=== PATIENT | female | born 1990 | race Caucasian/White ===

== ENCOUNTER 2020-12-17 16:00 | Emergency (ER) | payer OTHER ==
--- OUTSIDE RECORDS SUMMARY | 2020-12-17 16:04 | XMS REPORT | Continuity of Care Document ---
:1990 Author Organization [facility] t Address [address] [place] [address] Care Team Providers Name Role Phone Janet LUDIN Attending Clinician 2, Lab Attending Clinician Unavailable Lab, Fam Pob I Attending Clinician Unavailable Problems This patient has no known problems. Allergies, Adverse Reactions, Alerts This patient has no known allergies or adverse reactions. Medications This patient has no known medications. Procedures This patient has no known procedures. Encounters Start End Encounter Admission Attending Care Care Encounter Source Date/Time Date/Time Type Type Clinicians Facility Department ID 2020-11-30 2020-11-30 Refill [facility], [facility] [id number] 00:00:00 00:00:00 [facility] [employer] [id number] [place] [id number] Professio [phone] [facility] [address] 2020-11-14 2020-11-14 Patient Janet [facility] [id number] 00:00:00 00:00:00 Secure Msg [facility] [employer] [id number] [place] [id number] Professio [phone] [facility] [address] 2020-11-12 2020-11-12 Larriman Helper 2, [facility] [id number] 13:12:08 13:27:08 Visit [place] [id number] [place] [id number] Professio [phone] [place] [address] Building 2020-11-09 2020-11-09 Letter Janet, [facility] [id number] 00:00:00 00:00:00 [facility] [id number] [place] [id number] Professio [phone] [place] [address] 2020-11-06 2020-11-06 [facility], [facility] [id number] 14:58:36 15:55:10 Visit [facility] [id number] [place] [id number] Professio [phone] [place] [address] Results This patient has no known results.
--- NOTE | 2020-12-17 17:36 | RAD REPORT ---
EXAM DESCRIPTION: RAD - Chest Pa And Lat (2 Views) - 12/17/2020 5:29 pm CLINICAL HISTORY: COUGH COMPARISON: None TECHNIQUE: Frontal and lateral views of the chest were obtained. FINDINGS: The lungs are clear. Heart size is normal and central vasculature is within normal limit s. No pleural effusion or pneumothorax seen. No acute bony finding noted. No aortic abnormality. IMPRESSION: No acute cardiopulmonary process.
--- NOTE | 2020-12-18 17:35 | EDPHYS ---
Physician Documentation [facility] Name: Sailaja Atkins Age: 30 yrs Sex: Female : 1990 Arrival Date: 12/17/2020 Time: 16:03 Bed 13 Private MD: ED Physician Isidoro Real Historical: - Allergies: 12/17 17:05 Ibuprofen; kg - Home Meds: 17:05 Lexapro 20 mg Oral tab 1 tab once daily [Active]; kg - PMHx: 17:05 Tonsillitis; kg - Immunization history:: Adult Immunizations not immunized, Client reports having NOT received the Covid vaccine. - Social history:: Smoking status: Patient reports the use of cigarette tobacco products, smokes one-half pack cigarettes per day. Vital Signs: 17:04 BP 120 / 93; Pulse 87; Resp 20; Temp 98.1(O); Pulse Ox 98% ; Weight 67.59 kg; Height 5 kg ft. 2 in. (157.48 cm); Pain 8/10; 17:04 Body Mass Index 27.25 (67.59 kg, 157.48 cm) kg MDM: 19:36 ED course: Patient left prior to evaluation. [facility] 12/17 17:09 Order name: Flu; Complete Time: 19:22 kg 12/17 17:09 Order name: XRAY Chest Pa And Lat (2 Views); Complete Time: 19:22 kg 12/17 17:09 Order name: Strep; Complete Time: 19:22 kg 12/17 17:41 Order name: Throat Culture EDMS 12/17 18:38 Order name: SARS-COV-2 RT PCR; Complete Time: 19:22 EDMS Administered Medications: No medications were administered Disposition: 12/18 06:02 Co-signature as Attending Physician, Isidoro Real MD. rn Disposition Summary: 12/17/20 19:24 Eloped Disposition: before being seen by provider kg Reason: unknown kg Signatures: Dispatcher [employer] EDMS Jude Zapien PA PA Isidoro Morse MD MD rn Graham, Kristen, RN RN kg Corrections: (The following items were deleted from the chart) 12/17 17:38 17:10 CORONAVIRUS+[id number].[email or web address] ordered. EDMS EDMS
--- NOTE | 2020-12-18 17:35 | ER ---
Nurse's Notes [facility] Name: Sailaja Atkins Age: 30 yrs Sex: Female : 1990 Arrival Date: 12/17/2020 Time: 16:03 Bed 13 Private MD: Diagnosis: Presentation: 12/17 17:04 Chief complaint: Patient states: Sore throat, Carter ear ache, cough x 3 days. Coronavirus kg screen: Client denies travel out of the [place] in the last 14 days. At this time, unable to obtain information related to travel outside the [place] At this time, the client does not indicate any symptoms associated with coronavirus-19. Ebola Screen: Patient negative for fever greater than or equal to 101.5 degrees Fahrenheit, and additional compatible Ebola Virus Disease symptoms Patient denies exposure to infectious person. Patient denies travel to an Ebola-affected area in the 21 days before illness onset. Initial Sepsis Screen: Does the patient meet any 2 criteria? No. Patient's initial sepsis screen is negative. Does the patient have a suspected source of infection? No. Patient's initial sepsis screen is negative. Risk Assessment: Do you want to hurt yourself or someone else? Patient reports no desire to harm self or others. Onset of symptoms was December 14, 2020. 17:04 Method Of Arrival: Ambulatory kg 17:04 Acuity: NGOC 4 kg Triage Assessment: 17:05 General: Appears in no apparent distress. Behavior is calm, cooperative, appropriate kg for age, quiet. Pain: Complains of pain in neck Pain currently is 7 out of 10 on a pain scale. at worst was 8 out of 10 on a pain scale. level that patient reports is acceptable is 3 out of 10 on a pain scale. Quality of pain is described as itching, scratchy. Respiratory: No deficits noted. Breath sounds are diminished bilaterally. Historical: - Allergies: 17:05 Ibuprofen; kg - Home Meds: 17:05 Lexapro 20 mg Oral tab 1 tab once daily [Active]; kg - PMHx: 17:05 Tonsillitis; kg - Immunization history:: Adult Immunizations not immunized, Client reports having NOT received the Covid vaccine. - Social history:: Smoking status: Patient reports the use of cigarette tobacco products, smokes one-half pack cigarettes per day. Vital Signs: 17:04 BP 120 / 93; Pulse 87; Resp 20; Temp 98.1(O); Pulse Ox 98% ; Weight 67.59 kg; Height 5 kg ft. 2 in. (157.48 cm); Pain 8/10; 17:04 Body Mass Index 27.25 (67.59 kg, 157.48 cm) kg ED Course: 16:03 Patient arrived in ED. mr 17:05 Triage completed. kg 17:28 XRAY Chest Pa And Lat (2 Views) In Process Unspecified. EDMS 19:10 Jude Zapien PA is PHCP. henrique 19:10 Isidoro Real MD is Attending Physician. henrique Administered Medications: No medications were administered Outcome: 19:24 Patient left the ED. kg Signatures: Dispatcher [employer] EDMS Jude Zapien PA PA jmm Rivera, Mary mr KochArabella, RN RN kg
[2020-12-19 13:16] VITALS: BP 120/93; TEMP 98.1; O2SAT 98
== END 2020-12-17 19:24 | disposition left against medical advice (07) ==
LOC: ER 16:00
DX: Z53.21 Procedure and treatment not carried out due to patient leaving prior to being seen by health care provider (principal); Z20.822 Contact with and (suspected) exposure to COVID-19
CPT/HCPCS: 87070; 87081; 87804 ×2; 71046; U0003

== ENCOUNTER 2023-12-28 06:59 | Emergency (ER) | payer OTHER ==
--- OUTSIDE RECORDS SUMMARY | 2023-12-28 07:05 | XMS REPORT | Continuity of Care Document ---
Author Name Unknown Address [address] [facility] [address] [place] [address] [facility] thconnect Address [address] [facility] [address] [place] [address] Care Team Providers Care Tool Technician Name Role Phone PCP, PATIENT DOES NOT HAVE A Primary Care Physic maria m Unavailable CHRIS PERRIN Attending Clinician Unavailable VASILE BETANCOURT Attending Clinician Unavailable KAITLIN MCKEON Attending Clinician Unavailable KAITLIN ORTIZ Attending Clinician Unavailab MARIYA Leon Attending Clinician Unavail able FARZAD BAER Attending Clinician Unavailable IRINA CUELLAR Attending Clinician Unavailable BARBARA WINTERS Attending Clinician Unava ilable Kaitlin Buenrostro Attending Clinician + [phone] Pcp, Patient Does Not Have A Attending Clinician Doctor Unassigned, [place] Attending Clinician U Sav Finnegan MD Attending Clinician [phone] Ngozi Torres PA-C Attending Clinician [phone] NADIA AMAYA Attending Clinician Unavailable NADIA AMAYA Attending Clinician Unavailable SUSI MORENO Attending Clinician Unavailab Susi Fox DO Attending Clinician [phone] YESENIA GRUBBS Attending Clinician Unavailable Donnell Hale MD Attending Clinician [phone] Denzel Danielle MD Attending Clinician [phone] NGOZI TORRES Attending Clinician Unavailable Lukas Romero MD Attending Clinician Unavailabl Ramiro Rodriguez DO Attending Clinician [phone] EDWIN ARREOLA Attending Clinician Unavailable Edwin Arreola DO Attending Clinician [phone] MONICA LACY Attending Clinician Unavail able Brandon Palacios MD Attending Clinician [phone] BRANDON PALACIOS Attending Clinician Unavail able BRANDON PALACIOS Attending Clinician Unavail able TUTU GE Attending Clinician Rosalie Andres LVN Attending Clinician JAY Kaur Attending Clinician Unavail able ROSLYN BENITO Attending Clinician Unavailable Lab, [facility] Attending Clinician Unavailable AUBREY FARRAR Attending Clinician Unavailabl e Hugh [facility], [place] Attending Clinician Unavaila ble [facility] Attending Clinician Unavailable DENZEL DANIELLE Attending Clinician Unavailable DENZEL DANIELLE Attending Clinician Unavailable Lab, Ang - Db Attending Clinician Unavailable Edgar Garcia MD Attending Clinician [phone] Fred Munguia MD Attending Clinician [phone] Roslyn Benito MD Attending Clinician [phone] MICHAEL PARKER Attending Clinician Unavailable Michael Parker MD Attending Clinician [phone] Irina Blackman Attending Clinician [phone] FERNANDO MAHER Attending Clinician Unavailable EDGAR GARCIA Attending Clinician Unavailab Harry Duffy Attending Clinician +[phone] RAMIRO BALDERAS Attending Clinician Unavailab IRINA Irvin Attending Clinician Unavailabl e 2, [facility] Attending Clinician Unavailable Lab, Adc Fam Pob I Attending Clinician Unavailab riya Rubin RN, Isis Salamanca Attending Clinician Unav RANGEL Lei Attending Clinician Unavailable Anton Sibley MD Attending Clinician + [phone] Yusuf Vincent MD Attending Clinician [phone] EDWIN ARREOLA Admitting Clinician Unavailable YESENIA GRUBBS Admitting Clinician Unavailable HARRY SMITH Admitting Clinician Unavailable Payers Payer Name Policy Type Policy Number Effective Date Expirati on Date Source [facility] [id number]:00:00 [employer] 94 ON 9 [id number] 2023 00:00:00 [facility] [place] [facility] [id number] 00:00:00 FORMERLY [facility] [id number] 2021 00:00:00 MEDICAID [place] [id number] 2021 00:00:00 Problems Condition Name Condition Details Condition Category Status Onset Date Resolution Date Last Treatment Date Treating Clinician Comments Source Lymphatic disorder Lymphatic disorder Disease Active 5-13 00:00: 00 [facility] Chronic obstructiv e lung disease Chronic obstructiv e lung disease Disease Active 3-03 00:00: 00 [facility] Lower back injury Lower back injury Disease Active 3-03 00:00: 00 [facility] 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 3-03 00:00: 00 [facility] Traumatic injury Traumatic injury Disease Active 3-03 00:00: 00 [facility] Cyst of left ovary Cyst of left ovary Disease Active -16 00:00: 00 [facility] Kidney damage Kidney damage Disease Active 3-16 00:00: 00 [facility] Mixed anxiety and depressive disorder Mixed anxiety and depressive disorder Disease Active 3-16 00:00: 00 [facility] Psoriatic arthritis Psoriatic arthritis Disease Active 3-16 00:00: 00 [facility] 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 Disease Active 2-05 00:00: 00 [facility] Non Hodgkin's lymphoma, stage IIA Non Hodgkin's lymphoma, stage IIA Disease Active 1-15 00:00: 00 [facility] 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 Disease Active 02-05 00:00: 00 [facility] Bipolar 1 disorder, manic, mild Bipolar 1 disorder, manic, mild Disease Active 06-06 00:00: 00 [facility] Chronic back pain greater than 3 months duration Chronic back pain greater than 3 months duration Disease Active 11-04 00:00: 00 [facility] Scoliosis deformity of spine Scoliosis deformity of spine Disease Active 08-05 00:00: 00 [facility] Allergies, Adverse Reactions, Alerts Allergy Name Allergy Type Status Severity Reaction(s) Onset Date Inactive Date Treating Clinician Comments Source Ibuprofe n Propensi ty to adverse reaction s Active [facility] 01-30 00:00: 00 [facility] IBUPROFE N DRUG INGREDI Active [facility] 01-30 00:00: 00 [facility] Ibuprofe n Propensi ty to adverse reaction s Active Swelling 11-16 00:00: 00 Rosemary Jean - Externa l Family History Family Member Diagnosis Comments Start Date Stop Date Sourc e Natural [facility] Maternal grandfather Colon Cancer [facility] Maternal grandfather Heart [facility] Maternal grandfather Skin Cancer [facility] Maternal grandmother Breast Cancer [facility] Maternal grandmother Diabetes [facility] Maternal grandmother Hypertension [facility] Maternal grandmother Thyroid Cancer [facility] Natural [facility] Natural mother COPD (chronic obstructive pulmonary disease) [facility] Natural [facility] Natural mother Kidney disease [facility] Natural mother Skin Cancer [facility] Paternal grandmother Skin Cancer [facility] Paternal grandmother CHF (congestive heart failure) [facility] Social History Social Habit Start Date Stop Date Quantity Comments Source History of tobacco use 2013-11-16 00:00:00 Cigarette Smoker Rosemary Jean - External Sexual orientation K paola Jean - External History SDOH Alcohol Frequency [facility] History SDOH Alcohol Std Drinks [facility] History SDOH Alcohol Binge [facility] Cigarettes smoked current (pack per day) - Reported 2023-11-17 00:00:00 2023-11-17 00:00:00 Rosemary Jean - External Cigarette pack-years 2023-11-17 00:00:00 2023-11-17 00:00:00 Rosemary Jean - External Alcoholic beverage intake 2023-11-17 00:00:00 2023-11-17 00:00:00 Ex-drinker (finding) Rosemary Jean - External History of Social function 2023-11-17 00:00:00 2023-11-17 00:00:00 Rosemary Jean - External Alcohol intake 2023-06-16 00:00:00 2023-06-16 00:00:00 Current drinker of alcohol (finding) [facility] Exposure to SARS-CoV-2 (event) 2022-05-03 00:00:00 2022-05-13 09:07:00 Not sure [facility] Tobacco use and exposure 2021-12-27 00:00:00 2021-12-27 00:00:00 Smokeless tobacco non-user [facility] Alcohol Comment 2020-08-07 00:00:00 2020-08-07 00:00:00 occassional wine (not weekly). [facility] Sex assigned at 1990 00:00:00 1990 00:00:00 Rosemary Looney Smoking Status Start Date Stop Date Source Tobacco smoking consumption unknown [facility] Ex-smoker 2023-11-17 00:00:00 2023-11-17 00:00:00 Rosemary Looney Smokes tobacco daily 2021-12-27 00:00:00 [facility] Medications Ordered Medication Name Filled Medication Name Start Date Stop Date Current Medication? Ordering Clinician Indication Dosage Frequency Signature (SIG) Comments Components Source Fluticasone -Salmeterol (Advair Diskus) 250-50 MCG/ACT inhalation AEROSOL POWDER, BREATH ACTIVATED 715 00:00: 00 Yes [id number] 1{puff} Q.5D Inhale 1 puff into the lungs 2 times daily. Rosemary salamanca Albuterol HFA 108 (90 Base) MCG/ACT IN AERS 12-06 00:00: 00 Yes [id number] 2{puff} Q.25D Inhale 2 puffs into the lungs every 6 hours as needed for wheezing. Rosemary salamanca Methotrexat e, PF, (Rasuvo) 7.5 MG/0.15ML subcutaneou s Solution Auto-inject or 11-17 00:00: 00 12-18 04:59 :00 Yes 7.5mg Q1W Inject 7.5 mg into the skin once a week. Rosemary salamanca Methotrexat e Sodium (RHEUMATREX ) 10 MG oral tablet 11-16 00:00: 00 12-17 04:59 :00 Yes [id number] 10mg Q1W Take 1 tablet (10 mg total) by mouth once a week. Rosemary salamanca Folic Acid 1 MG oral tablet 11-16 00:00: 00 12-17 04:59 :00 Yes [id number] 1mg QD Take 1 tablet (1 mg total) by mouth daily. Rosemary salamanca haloperidoL (HALDOL) tablet 0.5 mg 06-10 20:44: 00 06-10 21:18 :00 No .5mg 0.5 mg, Oral, ONCE, 1 dose, On Thu06/10/23 at 1445, TO [facility] haloperidoL 5 mg tablet 06-10 00:00: 00 Yes [id number] 5mg Take 1 tablet by mouth in the morning and 1 tablet in the evening. [facility] NaCl 0.9% (NS) bolus infusion 1,000 mL 05-28 17:45: 00 05-28 17:57 :00 No 1000mL at 999 mL/hr, 1,000 mL, IV Infusion, ONCE, 1 dose, On Lala 05/28/23 at 1145, TO [facility] buPROPion HCL, smoking deter, 150 mg Tb12 2021-05 00:00: 00 Yes [id number] 150mg Take 150 mg by mouth 2 (two) times daily. [facility] albuterol 90 mcg/actuati on inhaler 2021-05 00:00: 00 Yes [id number] 2{puff} Inhale 2 Puffs every 4 (four) hours as needed for Wheezing or Shortness of Breath. [facility] benzonatate 100 mg capsule 2021-05 00:00: 00 Yes [id number] 100mg Take 1 capsule by mouth 3 (three) times daily as needed for Cough. [facility] methylPREDN ISolone 4 mg tablets 2021-05 00:00: 00 Yes [id number] Take by mouth SEE-INSTRU CTIONS. follow package directions [facility] lidocaine 5 % (700 mg/patch) patch 2021-05 00:00: 00 04-19 05:59 :00 No [id number] 1{patch } Apply 1 Patch to area(s) once now for 1 dose. [facility] OLANZapine 15 mg tablet 2021-05 00:00: 00 Yes [facility] ARIPiprazol e 5 mg tablet 2021-05 00:00: 00 Yes [facility] haloperidoL 10 mg tablet 2021-05 00:00: 00 06-10 00:00 :00 No [facility] Butalbital- Acetaminoph en-Caff 50-300-40 mg per capsule 01-02 08:32: 56 Yes butalbital -acetamino phen-caffe ine 50 mg-300 mg-40 mg capsule Take 1 capsule every 6-8 hours by oral route as needed. [facility] BUPROPION HCL, SMOKING DETER, 150 mg Tb12 12-02 00:00: 00 04-23 00:00 :00 No [id number] TAKE 150 MG BY MOUTH DAILY. ZYBAN 150MG BY MOUTH FOR 3 DAYS AND THEN TWICE. START 1 WEEK PRIOR TO SMOKING CESSATION AND CONTINUE FOR 7-12 WEEKS. [facility] Butalbital- Acetaminoph en-Caff 50-300-40 mg per capsule 11-22 00:00: 00 01-02 00:00 :00 No butalbital -acetamino phen-caffe ine 50 mg-300 mg-40 mg capsule Take 1 capsule every 6-8 hours by oral route as needed. [facility] escitalopra m oxalate 20 mg tablet 11-09 22:50: 10 Yes escitalopr am 20 mg tablet TAKE 1 TABLET BY MOUTH EVERY DAY [facility] predniSONE 20 mg tablet 11-09 22:50: 10 Yes prednisone 20 mg tablet TAKE 2 TABLETS BY MOUTH DAILY X 5 DAYS [facility] triamcinolo ne acetonide 0.1 % cream 11-09 22:50: 10 Yes triamcinol one acetonide 0.1 % topical cream APPLY 3 TIMES DAILY UNTIL DIRECTED TO STOP [facility] risankizuma b-rzaa (SKYRIZI) 150 mg/mL PnIj 11-01 00:00: 00 Yes [id number] 150mg inject 1 Pen under the skin every 12 (twelve) weeks. [facility] calcipotrie ne-betameth asone 0.005-0.064 % ointment 10-22 00:00: 00 Yes [id number] Apply to area(s) daily. [facility] clindamycin 1 % gel 10-22 00:00: 00 Yes [id number] Apply to affected area(s) 2 (two) times daily as needed for Rash (groin). [facility] risankizuma b-rzaa (SKYRIZI) 150 mg/mL PnIj 10-22 00:00: 00 Yes [id number] 150mg inject 1 Pen under the skin every 4 (four) weeks. [facility] gabapentin 100 mg capsule 10-22 00:00: 00 Yes [id number] 300mg Take 3 capsules by mouth at bedtime. [facility] hydrOXYzine 50 mg tablet 10-22 00:00: 00 Yes [id number] 50mg Take 1 tablet by mouth 3 (three) times daily as needed for Anxiety. [facility] clindamycin 1 % gel 10-22 00:00: 00 Yes [id number] Apply to affected area(s) 2 (two) times daily as needed for Rash (groin). [facility] albuterol 90 mcg/actuati on inhaler 10-22 00:00: 00 04-23 00:00 :00 No [id number] 2{puff} Inhale 2 Puffs every 4 (four) hours as needed for Wheezing or Shortness of Breath. [facility] buPROPion HCL, smoking deter, (ZYBAN) 150 mg Tb12 10-22 00:00: 00 12-02 00:00 :00 No [id number] 150mg Take 150 mg by mouth daily. Zyban 150mg Po for 3 days and then bid. Start 1 week prior to smoking cessation and continue for 7-12 weeks. [facility] fluticasone propion-loan meteroL (ADVAIR DISKUS) 250-50 mcg/dose inhalation disk 09-25 00:00: 00 Yes [id number] 1{puff} Inhale 1 Puff every 12 (twelve) hours. [facility] risankizuma b-rzaa (SKYRIZI) 150 mg/mL PnIj 09-05 00:00: 00 11-01 00:00 :00 No [id number] 150mg inject 1 Pen under the skin every 12 (twelve) weeks. [facility] gabapentin 100 mg capsule 09-05 00:00: 00 10-20 00:00 :00 No [id number] 300mg Take 3 capsules by mouth at bedtime. [facility] clindamycin 1 % gel 09-02 00:00: 00 10-20 00:00 :00 No [id number] Apply to affected area(s) 2 (two) times daily as needed for Rash (groin). [facility] calcipotrie ne-betameth asone 0.005-0.064 % ointment 4-11 00:00: 00 10-20 00:00 :00 No [id number] Apply to area(s) daily. [facility] clobetasoL 0.05 % ointment 08-12 00:00: 00 Yes [id number] Apply to area(s) 2 (two) times daily. [facility] hydrOXYzine 50 mg tablet 08-12 00:00: 00 09-25 00:00 :00 No [id number] 50mg Take 1 tablet by mouth 3 (three) times daily as needed for Anxiety. [facility] buPROPion HCL, smoking deter, (ZYBAN) 150 mg Tb12 08-12 00:00: 00 09-25 00:00 :00 No [id number] 150mg Take 150 mg by mouth daily. Zyban 150mg Po for 3 days and then bid. Start 1 week prior to smoking cessation and continue for 7-12 weeks. [facility] amoxicillin -clavulanat e (AUGMENTIN) 875-125 mg per tablet 08-12 00:00: 00 08-23 04:59 :00 No [id number] 1{tbl} Take 1 tablet by mouth 2 (two) times daily for 10 days. [facility] albuterol 90 mcg/actuati on inhaler 07-25 00:00: 00 09-25 00:00 :00 No [id number] 2{puff} Inhale 2 Puffs every 4 (four) hours as needed for Wheezing or Shortness of Breath. [facility] fluticasone propion-loan meteroL (ADVAIR DISKUS) 250-50 mcg/dose inhalation disk 07-25 00:00: 00 09-25 00:00 :00 No [id number] 1{puff} Inhale 1 Puff every 12 (twelve) hours. [facility] clobetasoL 0.05 % ointment 2020-05 2 00:00: 00 08-10 00:00 :00 No [id number] Apply to area(s) 2 (two) times daily for 90 days. [facility] fluticasone propion-loan meteroL (ADVAIR DISKUS) 250-50 mcg/dose inhalation disk 2020-05 00:00: 00 07-25 00:00 :00 No [id number] 1{puff} Inhale 1 Puff every 12 (twelve) hours for 90 days. [facility] hydrOXYzine 50 mg tablet 2020-05 00:00: 00 08-10 00:00 :00 No [id number] 50mg Take 1 tablet by mouth 3 (three) times daily as needed for Anxiety. [facility] buPROPion HCL, smoking deter, (ZYBAN) 150 mg [facility] 2020-05 00:00: 00 08-10 00:00 :00 No [id number] 150mg Take 150 mg by mouth daily. Zyban 150mg Po for 3 days and then bid. Start 1 week prior to smoking cessation and continue for 7-12 weeks. [facility] buPROPion HCL, smoking deter, (ZYBAN) 150 mg [facility] 2020-05 00:00: 00 04-12 00:00 :00 No [id number] 150mg Take 150 mg by mouth daily. Zyban 150mg Po for 3 days and then bid. Start 1 week prior to smoking cessation and continue for 7-12 weeks. [facility] furosemide 20 mg tablet 2020-05 00:00: 00 Yes [id number] 20mg Take 1 tablet by mouth every morning. [facility] methylPREDN ISolone 4 mg tablets 2020-05 00:00: 00 04-18 00:00 :00 No [id number] Take by mouth SEE-INSTRU CTIONS. follow package directions [facility] clindamycin 300 mg capsule 2020-05 00:00: 00 08-12 00:00 :00 No [id number] 300mg Take 1 capsule by mouth 4 (four) times daily. [facility] hydrOXYzine 50 mg tablet 2020-05 00:00: 00 04-12 00:00 :00 No [id number] 50mg Take 1 tablet by mouth 3 (three) times daily as needed for Anxiety. [facility] buPROPion HCL, smoking deter, (ZYBAN) 150 mg Tb12 02-08 00:00: 00 03-04 00:00 :00 No [id number] 150mg Take 150 mg by mouth daily for 45 days. Zyban 150mg Po for 3 days and then bid. Start 1 week prior to smoking cessation and continue for 7-12 weeks. [facility] hydrOXYzine 50 mg tablet 02-08 00:00: 00 03-04 00:00 :00 No [id number] 50mg Take 1 tablet by mouth 3 (three) times daily as needed for Anxiety for up to 30 days. [facility] methylPREDN ISolone 4 mg tablets 02-08 00:00: 00 02-15 04:59 :00 No [id number] Take by mouth SEE-INSTRU CTIONS for 6 days. follow package directions [facility] varenicline (CHANTIX STARTING MONTH BOX) 0.5 mg (11)- 1 mg (42) tablet 12-24 00:00: 00 Yes [id number] Take one 0.5mg tab by mouth once daily for 3 days, then one 0.5mg tab twice daily for 4 days, then one 1mg tab twice daily. [facility] triamcinolo ne acetonide 0.1 % ointment 12-24 00:00: 04-12 00:00 :00 No [id number] Apply to area(s) 2 (two) times daily. [facility] escitalopra m oxalate 20 mg tablet 12-24 00:00: 00 02-08 00:00 :00 No [id number] 20mg Take 1 tablet by mouth daily. [facility] benzonatate 100 mg capsule 12-22 00:00: 00 04-18 00:00 :00 No [id number] 100mg Take 1 capsule by mouth 3 (three) times daily as needed for Cough. [facility] albuterol 90 mcg/actuati on inhaler 12-22 00:00: 00 07-25 00:00 :00 No [id number] 2{puff} Inhale 2 Puffs every 4 (four) hours as needed for Wheezing or Shortness of Breath. [facility] cephALEXin 500 mg capsule 12-22 00:00: 00 12-30 04:59 :00 No [id number] 500mg Take 1 capsule by mouth 4 (four) times daily for 7 days. [facility] predniSONE 20 mg tablet 12-22 00:00: 00 12-27 04:59 :00 No [id number] 20mg Take 1 tablet by mouth 2 (two) times daily for 4 days. [facility] triamcinolo ne acetonide 0.1 % ointment 11-06 00:00: 00 11-30 00:00 :00 No [id number] Apply to area(s) 2 (two) times daily. [facility] varenicline (CHANTIX STARTING MONTH BOX) 0.5 mg (11)- 1 mg (42) tablet 11-06 00:00: 00 11-30 00:00 :00 No [id number] Take one 0.5mg tab by mouth once daily for 3 days, then one 0.5mg tab twice daily for 4 days, then one 1mg tab twice daily. [facility] escitalopra m oxalate 20 mg tablet 11-06 00:00: 00 11-30 00:00 :00 No [id number] 20mg Take 1 tablet by mouth daily. [facility] calcipotrie ne-betameth asone 0.005-0.064 % ointment 09-17 00:00: 00 11-06 00:00 :00 No [id number] Apply to area(s) daily. [facility] escitalopra m oxalate 20 mg tablet 08-14 00:00: 00 11-06 00:00 :00 No [id number] 20mg Take 1 tablet by mouth daily. [facility] escitalopra m oxalate 10 mg tablet 17 00:00: 00 08-14 00:00 :00 No [id number] 10mg Take 1 tablet by mouth 2 (two) times daily. [facility] calcipotrie ne-betameth asone 0.005-0.064 % ointment 08-07 00:00: 00 09-14 00:00 :00 No [id number] Apply to area(s) daily. [facility] ondansetron 4 mg tablet 01-30 00:00: 00 08-07 00:00 :00 No [id number] 4mg Take 1 tablet by mouth every 8 (eight) hours as needed for Nausea and Vomiting (N/V). [facility] triamcinolo ne 0.5 % ointment 01-30 00:00: 00 08-07 00:00 :00 No [id number] Apply to area(s) 2 (two) times daily. [facility] adalimumab (JACKELYN LEYVA, ROSENDO PSOR-UV-ADO L HS) 80 mg/0.8 mL-40 mg/0.4 mL PnKt 7-10 00:00: 00 09-05 00:00 :00 No [facility] Immunizations Ordered Immunization Name Filled Immunization Name Date Status Comments Source TDAP 2020-08-07 00:00:00 Completed [facility] TDAP 2020-08-07 00:00:00 Completed [facility] TDAP 2020-08-07 00:00:00 Completed [facility] TDAP 2020-08-07 00:00:00 Completed [facility] TDAP 2020-08-07 00:00:00 Completed [facility] TDAP 2020-08-07 00:00:00 Completed [facility] TDAP 2020-08-07 00:00:00 Completed [facility] TDAP 2020-08-07 00:00:00 Completed [facility] TDAP 2020-08-07 00:00:00 Completed [facility] TDAP 2020-08-07 00:00:00 Completed [facility] TDAP 2020-08-07 00:00:00 Completed [facility] TDAP 2020-08-07 00:00:00 Completed [facility] TDAP 2020-08-07 00:00:00 Completed [facility] TDAP Unknown Completed [facility] TDAP Unknown Completed [facility] TDAP Unknown Completed [facility] TDAP Unknown Completed [facility] TDAP Unknown Completed [facility] TDAP Unknown Completed [facility] TDAP Unknown Completed [facility] TDAP Unknown Completed [facility] TDAP Unknown Completed [facility] TDAP Unknown Completed [facility] TDAP Unknown Completed [facility] TDAP Unknown Completed [facility] TDAP Unknown Completed [facility] TDAP Unknown Completed [facility] TDAP Unknown Completed [facility] TDAP Unknown Completed [facility] TDAP Unknown Completed [facility] TDAP Unknown Completed [facility] TDAP Unknown Completed [facility] TDAP Unknown Completed [facility] TDAP Unknown Completed [facility] TDAP Unknown Completed [facility] TDAP Unknown Completed [facility] TDAP Unknown Completed [facility] TDAP Unknown Completed [facility] TDAP Unknown Completed [facility] TDAP Unknown Completed [facility] TDAP Unknown Completed [facility] TDAP Unknown Completed [facility] TDAP Unknown Completed [facility] TDAP Unknown Completed [facility] TDAP Unknown [facility]pleted [facility] TDAP Unknown [facility]pleted [facility] TDAP Unknown Completed [facility] TDAP Unknown Completed [facility] TDAP Unknown [facility]pleted [facility] TDAP Unknown Completed [facility] TDAP Unknown Completed [facility] Vital Signs Vital Name Observation Time Observation Value Comments S ource Systolic blood pressure 2023-06-10 20:06:00 137 mm[Hg] [facility] Diastolic blood pressure 2023-06-10 20:06:00 80 mm[Hg] [facility] Heart rate 2023-06-10 20:06:00 107 /min [facility] Body temperature 2023-06-10 20:06:00 36.78 [facility] Respiratory rate 2023-06-10 20:06:00 18 /min [facility] Body height 2023-06-10 20:06:00 157.5 cm [facility] Body weight 2023-06-10 20:06:00 83.915 kg [facility] BMI 2023-06-10 20:06:00 33[facility]84 [facility] O[facility] saturation in Arterial blood by Pulse oximetry 2023-06-10 20:06:00 100 /min [facility] Heart rate 2023-05-28 17:58:00 88 /min [facility] Respiratory rate 2023-05-28 17:58:00 16 /min [facility] Oxygen saturation in Arterial blood by Pulse oximetry 2023-05-28 17:58:00 99 /min [facility] Systolic blood pressure 2023-05-28 16:41:00 138 mm[Hg] [facility] Diastolic blood pressure 2023-05-28 16:41:00 82 mm[Hg] [facility] Body temperature 2023-05-28 16:41:00 36.61 [facility] Body height 2023-05-28 16:41:00 157.5 cm [facility] Body weight 2023-05-28 16:41:00 83.915 [facility] BMI 2023-05-28 16:41:00 33.84 kg/m2 [facility] Systolic blood pressure 2022-05-13 15:38:00 116 mm[Hg] [facility] Diastolic blood pressure 2022-05-13 15:38:00 78 mm[Hg] [facility] Heart rate 2022-05-13 15:38:00 86 /min [facility] Body height 2022-05-13 15:38:00 157.5 cm [facility] Body weight 2022-05-13 15:38:00 79.833 [facility] BMI 2022-05-13 15:38:00 32.19 kg/m2 [facility] Oxygen saturation in Arterial blood by Pulse oximetry 2022-05-13 15:38:00 100 /min [facility] Systolic blood pressure 2022-04-18 21:49:00 138 mm[Hg] [facility] Diastolic blood pressure 2022-04-18 21:49:00 75 mm[Hg] [facility] Heart rate 2022-04-18 21:49:00 99 /min [facility] Body temperature 2022-04-18 21:49:00 37.44 [facility] Respiratory rate 2022-04-18 21:49:00 18 /min [facility] Body height 2022-04-18 21:49:00 157.5 cm [facility] Body weight 2022-04-18 21:49:00 68.04 kg [facility] BMI 2022-04-18 21:49:00 27.44 kg/m2 [facility] Oxygen saturation in Arterial blood by Pulse oximetry 2022-04-18 21:49:00 98 /min [facility] Systolic blood pressure 2021-12-27 20:58:00 136 mm[Hg] [facility] Diastolic blood pressure 2021-12-27 20:58:00 82 mm[Hg] [facility] Heart rate 2021-12-27 20:58:00 94 /min [facility] 2021-12-27 20:58:00 157.5 cm [facility] Body weight 2021-12-27 20:58:00 74.844 kg [facility] BMI 2021-12-27 20:58:00 30.18 kg/m2 [facility] saturation in Arterial blood by Pulse oximetry 2021-12-27 20:58:00 98 /min [facility] Systolic blood pressure 2022-05-13 15:38:00 116 mm[Hg] [facility] Diastolic blood pressure 2022-05-13 15:38:00 78 mm[Hg] [place] [facility] Heart rate 2022-05-13 15:38:00 86 /min [facility] Body height 2022-05-13 15:38:00 157.5 cm [facility] Body weight 2022-05-13 15:38:00 79.833 kg [facility] BMI 2022-05-13 15:38:00 32.19 kg/m2 [facility] Oxygen saturation in Arterial blood by Pulse oximetry 2022-05-13 15:38:00 100 /min [place] [facility] Body temperature 2022-04-18 21:49:00 37.44 [facility] Respiratory rate 2022-04-18 21:49:00 18 /min [facility] Procedures Procedure Date / Time Performed Performing Clinician Source ASSIGNMENT OF BENEFITS 2023-06-10 21:13:27 Docto r Unassigned, [place] [facility] ASSIGNMENT OF BENEFITS 2023-05-28 18:11:05 Docto r Unassigned, [place] [facility] CONSENT/REFUSAL FOR DIAGNOSIS AND TREATMENT 2023-05-28 16:36:50 Doctor Unassigned, [place] [facility] RAPID INFLUENZA A/B 2022-04-18 22:26:00 Eloisa Arreola [facility] COVID-19 (ID NOW RAPID TESTING) 2022-04-18 22:26:00 Edwin Arreola [facility] XR CHEST 1 VW 2022-04-18 22:20:12 [facility] CONSENT/REFUSAL FOR DIAGNOSIS AND TREATMENT 2022-04-18 21:44:26 Doctor Unassigned, [place] [facility] REFERRAL- REQUEST/RESPONSE 2022-03-19 05:01:00 Doctor Unassigned, [place] [facility] AUTHORIZATION FOR RELEASE OF PHI 2022-02-07 05:01:00 Doctor Unassigned, [place] [facility] Encounters Start Date/Time End Date/Time Encounter Type Admission Type Attending Clinicians Care Facility Care Department Encounter ID Source 2021-03-25 12:09:29 Emergency [facility] [id number] [facility] 2023-12-31 13:30:00 2023-12-31 13:30:00 Outpatient PERRINKATIELE ROSEMARY NICHOL[facility] [id number] [facility] 2023-12-29 10:15:00 2023-12-29 10:15:00 Outpatient BETANCOURTKI CAGETI [facility]ICHOL[facility] [id number] [facility] 2023-12-21 08:00:00 2023-12-21 08:00:00 Outpatient KAITLIN NAVA [facility] [id number] [facility] 2023-12-21 00:00:00 2023-12-21 00:00:00 Outpatient BETANCOURT, VASILE NICHOLSON [id number] [facility] 2023-12-16 00:00:00 2023-12-16 00:00:00 Outpatient BETANCOURT, VASILE NICHOLSON [id number] [facility] 2023-12-15 00:00:00 2023-12-15 00:00:00 Outpatient BETANCOURT, VASILETI NICHOLSON [id number] [facility] 2023-12-15 00:00:00 2023-12-15 00:00:00 Outpatient BETANCOURT, VASILE NICHOLSON [id number] [facility] 2023-12-15 00:00:00 2023-12-15 00:00:00 Outpatient EBTANCOURT, VASILE NICHOLSON [id number] [facility] 2023-12-11 00:00:00 2023-12-11 00:00:00 Outpatient BETANCOURT, VASILETI NICHOLSON [id number] [facility] 2023-12-09 15:00:00 2023-12-09 15:00:00 Outpatient KAITLIN ORTIZ [id number] [facility] 2023-12-08 10:45:00 2023-12-08 10:45:00 Outpatient MARIYA ALBERTO [id number] [facility] 2023-12-07 11:00:00 2023-12-07 11:00:00 Outpatient FARZAD BAERSEY [id number] [facility] 2023-12-06 00:00:00 2023-12-06 00:00:00 Outpatient BETANCOURT, VASILE ROSEMARY NICHOLSON [id number] [facility] 2023-11-21 00:00:00 2023-11-21 00:00:00 Outpatient BETANCOURT, VASILENicolette NICHOLSON [id number] [facility] 2023-11-19 00:00:00 2023-11-19 00:00:00 Outpatient BETANCOURT, VASILENicolette NICHOLSON [id number] [facility] 2023-11-19 00:00:00 2023-11-19 00:00:00 Outpatient BETANCOURT, VASILETI NICHOLSON [id number] [facility] 2023-11-17 14:45:00 2023-11-17 14:45:00 Outpatient BETANCOURT, VASILETI NICHOLSON [id number] [facility] 2023-11-17 00:00:00 2023-11-17 00:00:00 Outpatient BETANCOURT, VASILENicolette NICHOLSON [id number] [facility] 2023-11-17 00:00:00 2023-11-17 00:00:00 Outpatient BETANCOURT, VASILENicolette NICHOLSON [id number] [facility] 2023-11-17 00:00:00 2023-11-17 00:00:00 Outpatient BETANCOURT, VASILETI NICHOLSON [id number] [facility] 2023-11-17 00:00:00 2023-11-17 00:00:00 Outpatient IRINA CUELLAR [id number] [facility] 2023-11-06 13:45:00 2023-11-06 13:45:00 Outpatient BARBARA WINTERS [id number] [facility] 2023-10-15 00:00:00 2023-10-21 08:57:01 Patient Secure [facility] [place], [facility] 1.2.840.114 350.1.13.10 4.2.7.2.686 [id number] [facility] 2023-08-31 10:20:00 2023-08-31 10:20:00 Outpatient R [facility] [id number] [facility] 2023-07-03 00:00:00 2023-07-03 00:00:00 Refill Kaitlin Mckeon [facility] 1.84.114 350.1.13.10 4.2.7.2.686 [id number] [facility] 2023-07-03 00:00:00 2023-07-03 00:00:00 Refill Pcp, Patient Does Not Have A [facility] 1.84.114 350.1.13.10 4.2.7.2.686 [id number] [facility] 2023-06-29 15:00:00 2023-06-29 15:00:00 Outpatient R [facility] [id number] [facility] 2023-06-18 00:00:00 2023-06-18 00:00:00 Patient Secure Msg Doctor Unassigned, [place] [facility] 1.84.114 350.1.13.10 4.2.7.2.686 [id number] [facility] 2023-06-17 14:13:30 2023-06-17 14:13:30 Outpatient [facility] [id number] Sher Yeh 2023-06-16 08:00:00 2023-06-16 08:00:00 Outpatient R KAITLIN MCKEON [facility] [id number] [facility] 2023-06-15 00:00:00 2023-06-15 00:00:00 [facility]ill [facility] 1.840.114 350.1.13.10 4.2.7.2.686 [id number] [facility] 2023-06-14 00:00:00 2023-06-14 00:00:00 [facility] 1..114 350.1.13.10 4.2.7.2.686 [id number] [facility] 2023-06-14 00:00:00 2023-06-14 00:00:00 Ngozi Andrew [facility] 1.114 350.1.13.10 4.2.7.2.686 [id number] [facility] 2023-06-10 14:07:00 2023-06-10 15:26:00 Emergency NADIA MILES TIMOTHY [facility] ERT [id number] [facility] 2023-06-10 14:07:00 2023-06-10 15:26:00 Emergency Nadia Amaya [facility] 1..114 350.1.13.10 4.2.7.2.686 [id number] [facility] 2023-05-28 10:42:00 2023-05-28 12:26:00 Emergency SUSI GONSALEZ [facility] ERT [id number] [facility] 2023-05-28 10:42:00 2023-05-28 12:26:00 Emergency Susi Moreno [facility] 1..114 350.1.13.10 4.2.7.2.686 [id number] [facility] 2022-08-19 00:00:00 2022-08-19 00:00:00 Patient Secure Msg Doctor Unassigned, [place] [facility] 1..114 350.1.13.10 4.2.7.2.686 [id number] [facility] 2022-06-27 10:00:00 2022-06-27 10:00:00 Outpatient R [facility] [id number] [facility] 2022-06-13 08:00:00 2022-06-13 08:00:00 Outpatient R YESENIA GRUBBS [facility] [id number] [facility] 2022-05-23 10:30:00 2022-05-23 10:30:00 Outpatient R LINDAKAITLIN [facility] [id number] [facility] 2022-05-14 09:00:00 2022-05-14 09:00:00 Outpatient R [facility] [id number] [facility] 2022-05-13 09:30:00 2022-05-13 10:08:57 [id number] 2022-05-13 09:30:00 2022-05-13 10:08:57 [facility] 1.84.114 350.1.13.10 4.2.7.2.686 [id number] [facility] 2022-05-01 00:00:00 2022-05-01 00:00:00 Telephone Donnell Hale [facility] 1..114 350.1.13.10 4.2.7.2.686 [id number] [facility] 2022-04-29 11:30:00 2022-04-29 11:30:00 Outpatient R LINDAJAYLEENKAITLIN [facility] [id number] [facility] 2022-04-29 00:00:00 2022-04-29 00:00:00 Patient Secure MsDenzel Gonzalez [facility] 1..114 350.1.13.10 4.2.7.2.686 [id number] [facility] 2022-04-25 13:30:00 2022-04-25 13:30:00 Outpatient YESENIA SHARPE [facility] [id number] [facility] 2022-04-25 00:00:00 2022-04-25 00:00:00 Telephone Denzel Danielle [facility] 1.114 350.1.13.10 4.2.7.2.686 [id number] [facility] 2022-04-24 08:00:00 2022-04-24 08:00:00 Outpatient NGOZI ANTHONY [facility] [id number] [facility] 2022-04-23 00:00:00 2022-04-23 00:00:00 RefNgozi Valente [facility] 1.114 350.1.13.10 4.2.7.2.686 [id number] [facility] 2022-04-23 00:00:00 2022-04-23 00:00:00 Refill Doctor Unassigned, [place] [facility] 1.114 350.1.13.10 4.2.7.2.686 [id number] [facility] 2022-04-23 00:00:00 2022-04-23 00:00:00 Refill Lukas Romero [facility] 1.114 350.1.13.10 4.2.7.2.686 [id number] [facility] 2022-04-23 00:00:00 2022-04-23 00:00:00 Telephone Denzel Danielle [facility] 1.114 350.1.13.10 4.2.7.2.686 [id number] [facility] 2022-04-23 00:00:00 2022-04-23 00:00:00 Lukas Crawford [facility] 1.840.114 350.1.13.10 4.2.7.2.686 [id number] [facility] 2022-04-23 00:00:00 2022-04-23 00:00:00 Patient Secure Msg Doctor Unassigned, [place] [facility] 1..840.114 350.1.13.10 4.2.7.2.686 [id number] [facility] 2022-04-22 13:40:00 2022-04-22 13:40:00 Outpatient R YESENIA GRUBBS [facility] [id number] [facility] 2022-04-21 11:00:00 2022-04-21 11:00:00 Outpatient R [facility] [id number] [facility] 2022-04-21 00:00:00 2022-04-21 00:00:00 Patient Secure Msg Ramiro Balderas [facility] 1..840.114 350.1.13.10 4.2.7.2.686 [id number] [facility] 2022-04-18 15:49:00 2022-04-18 18:23:00 Emergency X EDWIN ARREOLA [facility] E[facility] [id number] [facility] 2022-04-18 15:49:00 2022-04-18 18:23:00 Emergency Edwin Arreola [facility] 1..840.114 350.1.13.10 4.2.7.2.686 [id number] [facility] 2022-04-01 09:45:40 2022-04-01 09:45:40 Outpatient SFA [id number] Sher Yeh 2022-03-26 14:35:27 2022-03-26 14:35:27 Outpatient [facility] [id number] Sher Yeh 2022-03-20 10:12:36 2022-03-20 10:12:36 Outpatient [facility] [id number] Sher Yeh 2022-03-19 00:00:00 2022-03-19 00:00:00 Orders Only Doctor Unassigned, [place] [facility] 1..840.114 350.1.13.10 4.2.7.2.686 [id number] [facility] 2022-02-10 08:30:00 2022-02-10 08:30:00 Outpatient KAITLIN NAVA [facility] [id number] [facility] 2022-02-07 00:00:00 2022-02-07 00:00:00 Orders Only Doctor Unassigned, [place] [facility] 1..840.114 350.1.13.10 4.2.7.2.686 [id number] [facility] 2022-01-28 09:23:51 2022-01-28 23:59:00 Outpatient YESENIA SHARPE [facility] [id number] [facility] 2022-01-28 09:23:51 2022-01-28 23:59:00 Outpatient YESENIA SHARPE [facility] [id number] [facility] 2022-01-28 09:00:00 2022-01-28 23:59:00 Hospital Encounter Yesenia Grubbs [facility] 1..840.114 350.1.13.10 4.2.7.2.686 [id number] [facility] 2022-01-20 00:00:00 2022-01-20 00:00:00 Outpatient YESENIA SHARPE [facility] [id number] [facility] 2022-01-14 00:00:00 2022-01-14 00:00:00 Outpatient YESENIA SHARPE [facility] [id number] [facility] 2022-01-13 10:30:00 2022-01-13 10:30:00 Outpatient Kristen MCKEON KAITLIN [facility] [id number] [facility] 2022-01-10 11:30:00 2022-01-10 11:30:00 Outpatient JAYLEEN NAVATHIA [facility] [id number] [facility] 2022-01-09 13:30:00 2022-01-09 13:30:00 Outpatient JAYLEEN NAVATHIA [facility] [id number] [facility] 2022-01-02 08:45:00 2022-01-02 08:45:00 Outpatient NGOZI ANTHONY [facility] [id number] [facility] 2021-12-30 10:30:00 2021-12-30 10:30:00 Outpatient MONICA TENORIO [facility] [id number] [facility] 2021-12-27 15:40:00 2021-12-27 16:44:52 Office Visit Brandon Palacios [facility] 1.2.840.114 350.1.13.10 4.2.7.2.686 [id number] [facility] 2021-12-27 15:40:00 2021-12-27 16:44:52 Outpatient BRANDON SAGASTUME HOWARD [facility] [id number] [facility] 2021-12-27 15:40:00 2021-12-27 15:40:00 Outpatient BRANDON SAGASTUME HOWARD [facility] [id number] [facility] 2021-12-16 13:45:00 2021-12-16 13:45:00 Outpatient NGOZI ANTHONY [facility] [id number] [facility] 2021-12-09 00:00:00 2021-12-09 00:00:00 Outpatient TUTU CABRERA [facility] [id number] [facility] 2021-12-05 08:15:00 2021-12-05 08:15:00 Outpatient R NGOZI TORRES [facility] [id number] [facility] 2021-12-05 00:00:00 2021-12-05 00:00:00 RefNgozi Valente [facility] 1.84.114 350.1.13.10 4.2.7.2.686 [id number] [facility] 2021-12-03 11:30:00 2021-12-03 11:30:00 Outpatient R MONICA LACY [facility] [id number] [facility] 2021-12-02 11:00:00 2021-12-02 11:00:00 Outpatient R [facility] [id number] [facility] 2021-12-02 00:00:00 2021-12-02 00:00:00 Patient Secure Msg Rosalie Roy [facility] 1.840.114 350.1.13.10 4.2.7.2.686 [id number] [facility] 2021-11-30 00:00:00 2021-11-30 00:00:00 Sav Phan [facility] 1.84.114 350.1.13.10 4.2.7.2.686 [id number] [facility] 2021-11-30 00:00:00 2021-11-30 00:00:00 Patient Secure Msg Doctor Unassigned, [place] [facility] 1..114 350.1.13.10 4.2.7.2.686 [id number] [facility] 2021-11-26 00:00:00 2021-11-26 00:00:00 Patient Secure Msg Kaitlin Mckeon [facility] 1.114 350.1.13.10 4.2.7.2.686 [id number] [facility] 2021-11-11 00:00:00 2021-11-11 00:00:00 Patient Secure Msg Rosalie Roy [facility] 1.114 350.1.13.10 4.2.7.2.686 [id number] [facility] 2021-11-11 00:00:00 2021-11-11 00:00:00 Patient Secure Msg Kaitlin Mckeon [facility] 1.114 350.1.13.10 4.2.7.2.686 [id number] [facility] 2021-11-05 00:00:00 2021-11-05 00:00:00 Patient Secure Msg Jayleen Mckeonthia [facility] 1.114 350.1.13.10 4.2.7.2.686 [id number] [facility] 2021-10-29 08:00:00 2021-10-29 08:00:00 Outpatient JAY VALDIVIA [facility] [id number] [facility] 2021-10-28 00:00:00 2021-10-28 00:00:00 Refill Ngozi Torres [facility] 1.114 350.1.13.10 4.2.7.2.686 [id number] [facility] 2021-10-28 00:00:00 2021-10-28 00:00:00 RefSav Ortiz [facility] 1.114 350.1.13.10 4.2.7.2.686 [id number] [facility] 2021-10-20 00:00:00 2021-10-20 00:00:00 RefNgozi Valente [facility] 1.114 350.1.13.10 4.2.7.2.686 [id number] [facility] 2021-10-20 00:00:00 2021-10-20 00:00:00 [facility] 1.114 350.1.13.10 4.2.7.2.686 [id number] [facility] 2021-10-20 00:00:00 2021-10-20 00:00:00 RefLukas Lemon [facility] 1.114 350.1.13.10 4.2.7.2.686 [id number] [facility] 2021-10-18 00:00:00 2021-10-18 00:00:00 Outpatient ROSLYN VINES [facility] [id number] [facility] 2021-10-15 11:00:00 2021-10-15 11:00:00 Outpatient ROSLYN VINES [facility] [id number] [facility] 2021-10-15 11:00:00 2021-10-15 11:00:00 Outpatient Kristen BENITO [facility] [id number] [facility] 2021-10-11 00:00:00 2021-10-11 00:00:00 Orders Only Doctor Unassigned, [place] [facility] 1.114 350.1.13.10 4.2.7.2.686 [id number] [facility] 2021-10-08 09:10:48 2021-10-08 23:59:00 Hospital Encounter Ngozi Torres [facility] 1.2.840.114 350.1.13.10 4.2.7.2.686 [id number] [facility] 2021-10-08 09:10:18 2021-10-08 23:59:00 Hospital Encounter Ngozi Torres [facility] 1.2.840.114 350.1.13.10 4.2.7.2.686 [id number] [facility] 2021-10-08 10:45:00 2021-10-08 11:00:00 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, [facility] Ngozi Torres [facility] 1.2.840.114 350.1.13.10 4.2.7.2.686 [id number] [facility] 2021-10-08 09:40:00 2021-10-08 09:40:00 Outpatient R AUBREY FARRAR [facility] [id number] [facility] 2021-10-08 09:07:31 2021-10-08 09:09:00 Hospital Encounter Ngozi Torres [facility] 1.2.840.114 350.1.13.10 4.2.7.2.686 [id number] [facility] 2021-10-08 09:07:31 2021-10-08 09:07:31 Outpatient R MARCO NGOZI [facility] [id number] [facility] 2021-10-08 00:00:00 2021-10-08 00:00:00 Patient Secure Ngozi Benedict [facility] 1.2.840.114 350.1.13.10 4.2.7.2.686 [id number] [facility] 2021-10-08 00:00:00 2021-10-08 00:00:00 Patient Secure Ngozi Osorio [facility] 1.2840.114 350.1.13.10 4.2.7.2.686 [id number] [facility] 2021-10-08 00:00:00 2021-10-08 00:00:00 Patient Secure Ngozi Osorio [facility] 1.2840.114 350.1.13.10 4.2.7.2.686 [id number] [facility] 2021-10-02 00:00:00 2021-10-02 00:00:00 Orders Only Doctor Unassigned, [place] [facility] 1.2840.114 350.1.13.10 4.2.7.2.686 [id number] [facility] 2021-09-27 00:00:00 2021-09-27 00:00:00 Telephone [facility] 1.2840.114 350.1.13.10 4.2.7.2.686 [id number] [facility] 2021-09-25 00:00:00 2021-09-25 00:00:[facility] AC?[facility] 1.2840.114 350.1.13.10 4.2.7.2.686 [id number] 044 [id number] [facility] 2021-09-25 00:00:00 2021-09-25 00:00:00 [facility] 1.2840.114 350.1.13.10 4.2.7.2.686 [id number] 044 [id number] [facility] 2021-09-25 00:00:00 2021-09-25 00:00:00 Lukas Crawford [facility] 1.2.840.114 350.1.13.10 4.2.7.2.686 [id number] 027 [id number] [facility] 2021-09-23 00:00:00 2021-09-23 00:00:00 Patient Secure Msg Doctor Unassigned, [place] [facility] 1.2.840.114 350.1.13.10 4.2.7.2.686 [id number] 044 [id number] [facility] 2021-09-18 00:00:00 2021-09-18 00:00:00 Patient Secure Msg Doctor Unassigned, [place] [facility] 1.2.840.114 350.1.13.10 4.2.7.2.686 [id number] 044 [id number] [facility] 2021-09-09 00:00:00 2021-09-09 00:00:00 Telephone LTAC, located within [facility] ([facility]) 1.2.840.114 350.1.13.10 4.2.7.2.686 [id number] 016 [id number] [facility] 2021-09-09 00:00:00 2021-09-09 00:00:00 Telephone LTAC, located within [facility] ([facility]) 1.2.840.114 350.1.13.10 4.2.7.2.686 [id number] [id number] [facility] 2021-09-09 00:00:00 2021-09-09 00:00:00 Patient Secure Msg Doctor Unassigned, [place] [facility] 1.2.840.114 350.1.13.10 4.2.7.2.686 [id number] [id number] [facility] 2021-09-06 00:00:00 2021-09-06 00:00:00 Patient Secure Msg Doctor Unassigned, [place] [facility] ABHILASH JIMÉNEZ?[facility] 1.114 350.1.13.10 4.2.7.2.686 [id number] 044 [id number] [facility] 2021-09-05 10:15:00 2021-09-05 11:05:53 Office Visit Ngozi Torres [facility] 1.114 350.1.13.10 4.2.7.2.686 [id number] 086 [id number] [facility] 2021-09-05 10:15:00 2021-09-05 11:05:53 Outpatient NGOZI ANTHONY [facility] [id number] [facility] 2021-09-05 10:15:00 2021-09-05 10:15:00 Outpatient NGOZI ANTHONY [facility] [id number] [facility] 2021-09-05 10:15:00 2021-09-05 10:15:00 Outpatient NGOZI ANTHONY [facility] [id number] [facility] 2021-09-03 00:00:00 2021-09-03 00:00:[facility] 1.114 350.1.13.10 4.2.7.2.686 [id number] 027 [id number] [facility] 2021-09-03 00:00:00 2021-09-03 00:00:00 Patient Secure Msg Nick [facility] 1..114 350.1.13.10 4.2.7.2.686 [id number] 027 [id number] [facility] 2021-09-03 00:00:00 2021-09-03 00:00:00 [facility] 1..114 350.1.13.10 4.2.7.2.686 [id number] 027 [id number] [facility] 2021-09-02 14:30:00 2021-09-02 14:30:00 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 [facility] Denzel Danielle [facility] 1.114 350.1.13.10 4.2.7.2.686 [id number] [facility] 2021-09-02 14:00:00 2021-09-02 14:13:44 Outpatient DENZEL LABOY BRENT [facility] [id number] [facility] 2021-09-02 14:00:00 2021-09-02 14:13:44 Office Visit Lukas Romero Brent C [facility] 1.114 350.1.13.10 4.2.7.2.686 [id number] 027 [id number] [facility] 2021-09-02 14:00:00 2021-09-02 14:13:44 Outpatient DENZEL LABOY BRENT [facility] [id number] [facility] 2021-09-02 14:00:00 2021-09-02 14:13:44 Office Visit Lukas Romero Brent C [facility] 1.114 350.1.13.10 4.2.7.2.686 [id number] [facility] 2021-08-30 00:00:00 2021-08-30 00:00:00 Patient Secure Msg Linda [facility] 1..114 350.1.13.10 4.2.7.2.686 [id number] 044 [id number] [facility] 2021-08-23 00:00:00 2021-08-23 00:00:00 Telephone Linda [facility] 1..114 350.1.13.10 4.2.7.2.686 [id number] 044 [id number] [facility] 2021-08-22 00:00:00 2021-08-22 00:00:00 Patient Secure Msg Doctor Unassigned, [place] [facility] 1..840.114 350.1.13.10 4.2.7.2.686 [id number] 019 [id number] [facility] 2021-08-15 14:00:00 2021-08-15 14:00:00 Outpatient Kristen KAITLIN MCKEON [facility] [id number] [facility] 2021-08-15 14:00:00 2021-08-15 14:00:00 Outpatient KAITLIN NAVA [facility] [id number] [facility] 2021-08-13 00:00:00 2021-08-13 00:00:00 Patient Secure [facility] 1..840.114 350.1.13.10 4.2.7.2.686 [id number] 044 [id number] [facility] 2021-08-12 16:45:00 2021-08-12 17:27:51 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, Carlos [facility] AC[facility] 1..840.114 350.1.13.10 4.2.7.2.686 [id number] [facility] 2021-08-12 16:45:00 2021-08-12 17:00:00 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 1..840.114 350.1.13.10 4.2.7.2.686 [id number] [facility] 2021-08-12 15:30:00 2021-08-12 16:50:49 Outpatient KAITLIN NAVA [facility] [id number] [facility] 2021-08-12 15:30:00 2021-08-12 16:50:49 [facility] 1.84.114 350.1.13.10 4.2.7.2.686 [id number] 044 [id number] [facility] 2021-08-12 15:30:00 2021-08-12 16:50:49 [facility] 1.84.114 350.1.13.10 4.2.7.2.686 [id number] 044 [id number] [facility] 2021-08-12 15:30:00 2021-08-12 16:50:49 [facility] [id number] [facility] 2021-08-12 15:30:00 2021-08-12 16:50:49 [facility] 1.84.114 350.1.13.10 4.2.7.2.686 [id number] 044 [id number] [facility] 2021-08-12 00:00:00 2021-08-12 00:00:00 Patient Secure Edgar Enamorado [facility] 1.114 350.1.13.10 4.2.7.2.686 [id number] 086 [id number] [facility] 2021-08-12 00:00:00 2021-08-12 00:00:00 Patient Secure g Edgar Garcia [facility] 1.114 350.1.13.10 4.2.7.2.686 [id number] 086 [id number] [facility] 2021-08-12 00:00:00 2021-08-12 00:00:00 Patient Secure Msg Edgar [facility] 1.840.114 350.1.13.10 4.2.7.2.686 [id number] 086 [id number] [facility] 2021-08-12 00:00:00 2021-08-12 00:00:00 Patient Secure Msg Fred Mungu[facility] 1.840.114 350.1.13.10 4.2.7.2.686 [id number] 028 [id number] [facility] 2021-08-10 00:00:00 2021-08-10 00:00:00 Refyan Mckeon [facility] OFFICE BUILDING ONE 1.840.114 350.1.13.10 4.2.7.2.686 [id number] 044 [id number] [facility] 2021-08-10 00:00:00 2021-08-10 00:00:00 Refyan Mckeon [facility] OFFICE BUILDING ONE 1.840.114 350.1.13.10 4.2.7.2.686 [id number] 044 [id number] [facility] 2021-08-01 00:00:00 2021-08-01 00:00:00 Orders Only Doctor Unassigned, [place] [facility] 1.840.114 350.1.13.10 4.2.7.2.686 [id number] [id number] [facility] 2021-06-25 00:00:00 2021-06-25 00:00:00 Patient Secure Msg Roslyn Benito [facility] BUILD[facility] 1.840.114 350.1.13.10 4.2.7.2.686 [id number] [facility] 2021-06-19 13:20:17 2021-06-19 23:59:00 Outpatient R ROSLYN BENITO [facility] [id number] [facility] 2021-06-19 13:20:17 2021-06-19 23:59:00 Hospital Encounter Roslyn Benito [facility] 1.2840.114 350.1.13.10 4.2.7.2.686 [id number] [facility] 2021-06-19 13:20:05 2021-06-19 23:59:00 Hospital Encounter Kaitlin Mckeon [facility] 1.20.114 350.1.13.10 4.2.7.2.686 [id number] [id number] [facility] 2021-05-28 00:00:00 2021-05-28 00:00:00 Patient Secure Msg Doctor Unassigned, [place] [facility] 1..114 350.1.13.10 4.2.7.2.686 [id number] [facility] 2021-05-21 11:00:00 2021-05-21 11:00:00 Outpatient R [facility] [id number] [facility] 2021-05-21 11:00:00 2021-05-21 11:00:00 Outpatient R [facility] [id number] [facility] 2021-05-20 13:30:00 2021-05-20 14:50:11 Outpatient R KAITLIN MCKEON [facility] [id number] [facility] 2021-05-20 13:30:00 2021-05-20 14:50:11 Office Visit Kaitlin Mckeon [facility] 1.284.114 350.1.13.10 4.2.7.2.686 [id number] [id number] [facility] 2021-05-20 13:30:00 2021-05-20 14:50:11 Outpatient R ANEKAITLIN GARCIA [facility] [id number] [facility] 2021-05-20 13:30:00 2021-05-20 14:50:11 Outpatient KAITLIN NAVA [facility] [id number] [facility] 2021-05-14 00:00:00 2021-05-14 00:00:00 Patient Secure [facility] 1..840.114 350.1.13.10 4.2.7.2.686 [id number] 044 [id number] [facility] 2021-04-12 11:00:00 2021-04-12 11:00:00 Outpatient KAITLIN NAVA [facility] [id number] [facility] 2021-04-12 11:00:00 2021-04-12 11:00:00 Outpatient KAITLIN NAVA [facility] [id number] [facility] 2021-04-12 00:00:00 2021-04-12 00:00:00 RefJayleen NatarajanAtrium Health Union [facility] OFF[facility] BUILDING ONE 1..840.114 350.1.13.10 4.2.7.2.686 [id number] [facility] 2021-04-12 00:00:00 2021-04-12 00:00:00 Patient Secure [facility] 1..840.114 350.1.13.10 4.2.7.2.686 [id number] 044 [id number] [facility] 2021-04-08 00:00:00 2021-04-08 00:00:00 Patient Secure [facility] 1..840.114 350.1.13.10 4.2.7.2.686 [id number] 044 [id number] [facility] 2021-04-08 00:00:00 2021-04-08 00:00:00 Orders Only Doctor Unassigned, [place] [facility] 1.840.114 350.1.13.10 4.2.7.2.686 [id number] [id number] [facility] 2021-04-03 00:00:00 2021-04-03 00:00:00 Refill Linda [facility] 1.840.114 350.1.13.10 4.2.7.2.686 [id number] [facility] 2021-04-01 00:00:00 2021-04-01 00:00:00 [facility] 1.840.114 350.1.13.10 4.2.7.2.686 [id number] 044 [id number] [facility] 2021-03-26 09:30:00 2021-03-26 09:30:00 Outpatient R KAITLIN MCKEON [facility] [id number] [facility] 2021-03-26 09:30:00 2021-03-26 09:30:00 Outpatient R JAYLEEN MCKEONTHIA [facility] [id number] [facility] 2021-03-21 02:23:00 2021-03-21 05:18:00 Emergency X MICHAEL PARKER [facility] ERT [id number] [facility] 2021-03-21 02:23:00 2021-03-21 05:18:00 Emergency Michael Parker [facility] 1.840.114 350.1.13.10 4.2.7.2.686 [id number] [facility] 2021-03-21 02:23:00 2021-03-21 05:18:00 Emergency X MICHAEL PARKER [facility] ERT [id number] [facility] 2021-03-12 16:30:00 2021-03-12 16:30:00 Outpatient R KAITLIN MCKEON [facility] [id number] [facility] 2021-03-12 16:30:00 2021-03-12 16:30:00 Outpatient R KAITLIN MCKEON [facility] [id number] [facility] 2021-03-11 14:30:00 2021-03-11 14:30:00 Outpatient R JAYLEEN MCKEONTHIA [facility] [id number] [facility] 2021-03-04 00:00:00 2021-03-04 00:00:00 RefRochelle [facility]arg[facility] Building 1.2.840.114 350.1.13.10 4.2.7.2.686 [id number] [id number] [facility] 2021-03-04 00:00:00 2021-03-04 00:00:00 Patient Secure [facility] Ac?[facility] 1.2.840.114 350.1.13.10 4.2.7.2.686 [id number] 044 [id number] [facility] 2021-03-04 00:00:00 2021-03-04 00:00:00 Patient Secure [facility] Ac?[facility] Building 1.2.840.114 350.1.13.10 4.2.7.2.686 [id number] [facility] 2021-02-25 15:00:00 2021-02-25 15:00:00 Outpatient FERNANDO CASPER [facility] [id number] [facility] 2021-02-25 14:20:00 2021-02-25 14:20:00 Outpatient EDGAR JORGE [facility] [id number] [facility] 2021-02-25 14:20:00 2021-02-25 14:20:00 Outpatient R RADHA EDGAR [facility] [id number] [facility] 2021-02-12 00:00:00 2021-02-12 00:00:00 Patient Secure Msg Doctor Unassigned, [place] [facility] 1..840.114 350.1.13.10 4.2.7.2.686 [id number] [id number] [facility] 2021-02-11 14:00:00 2021-02-11 14:00:00 Outpatient R [facility] [id number] [facility] 2021-02-11 14:00:00 2021-02-11 14:00:00 Outpatient R [facility] [id number] [facility] 2021-02-08 14:34:00 2021-02-08 16:05:44 [facility] 1..840.114 350.1.13.10 4.2.7.2.686 [id number] 044 [id number] [facility] 2021-02-08 14:30:00 2021-02-08 16:05:44 [facility] [id number] 2021-02-08 14:30:00 2021-02-08 14:30:00 [facility] [id number] [facility] 2021-02-08 00:00:00 2021-02-08 00:00:00 Orders Only Doctor Unassigned, [place] [facility] 1.840.114 350.1.13.10 4.2.7.2.686 [id number] [facility] 2021-02-07 11:00:00 2021-02-07 11:00:00 Outpatient [facility] [id number] [facility] 2021-01-03 00:00:00 2021-01-03 00:00:00 Patient Secure Msg LindaCount includes the [facility] Office Building One 1..114 350.1.13.10 4.2.7.2.686 [id number] 044 [id number] [facility] 2021-01-02 00:00:00 2021-01-02 00:00:00 Patient Secure Msg Doctor Unassigned, [place] [facility] 1..114 350.1.13.10 4.2.7.2.686 [id number] 019 [id number] [facility] 2021-01-02 00:00:00 2021-01-02 00:00:00 Refill LindaCount includes the [facility] Office Building One 1.114 350.1.13.10 4.2.7.2.686 [id number] 044 [id number] [facility] 2020-12-31 00:00:00 2020-12-31 00:00:00 Orders Only Doctor Unassigned, [place] [facility] 1.20.114 350.1.13.10 4.2.7.2.686 [id number] [id number] [facility] 2020-12-31 00:00:00 2020-12-31 00:00:00 Orders Only Doctor Unassigned, [place] [facility] 1.20.114 350.1.13.10 4.2.7.2.686 [id number] 009 [id number] [facility] 2020-12-24 00:00:00 2020-12-24 00:00:00 Patient [facility] 1.84.114 350.1.13.10 4.2.7.2.686 [id number] 044 [id number] [facility] 2020-12-24 00:00:00 2020-12-24 00:00:00 [facility] One ..114 350.1.13.10 4.2.7.2.686 [id number] 044 [id number] [facility] 2020-12-21 23:17:00 2020-12-22 01:38:00 Emergency X HARRY SMITH [facility] ERT [id number] [facility] 2020-12-21 23:17:00 2020-12-22 01:38:00 Emergency Harry Smith [facility] 1.0.114 350.1.13.10 4.2.7.2.686 [id number] 084 [id number] [facility] 2020-12-22 00:00:00 2020-12-22 00:00:00 Patient Secure Msg Doctor Unassigned, [place] [facility] 1..114 350.1.13.10 4.2.7.2.686 [id number] 019 [id number] [facility] 2020-12-21 00:00:00 2020-12-21 00:00:00 Orders Only Doctor Unassigned, [place] [facility] 1.840.114 350.1.13.10 4.2.7.2.686 [id number] 009 [id number] [facility] 2020-11-30 00:00:00 2020-11-30 00:00:00 [facility] One ..114 350.1.13.10 4.2.7.2.686 [id number] 044 [id number] [facility] 2020-11-30 00:00:00 2020-11-30 00:00:00 Refill [facility] Office Building One ..114 350.1.13.10 4.2.7.2.686 [id number] 044 [id number] 2020-11-19 00:00:00 2020-11-19 00:00:00 Patient Secure Msg Roslyn Benito [facility] BUILDING 1.2.840.114 350.1.13.10 4.2.7.2.686 [id number] [facility] 2020-11-14 00:00:00 2020-11-14 00:00:00 Patient Secure Msg Roslyn Benito [facility] BUILDING 1.2.840.114 350.1.13.10 4.2.7.2.686 [id number] [facility] 2020-11-14 00:00:00 2020-11-14 00:00:00 Patient Secure g Rochelle GonzalesFormerly [facility] Office Building One 1.2.840.114 350.1.13.10 4.2.7.2.686 [id number] 044 [id number] [facility] 2020-11-14 00:00:00 2020-11-14 00:00:00 Patient Secure Msg Gonzales [facility] Office Building One 1.2.840.114 350.1.13.10 4.2.7.2.686 [id number] 044 [id number] 2020-11-13 15:00:00 2020-11-13 15:00:00 Outpatient RAMIRO BARRAGAN [facility] [id number] [facility] 2020-11-12 14:00:00 2020-11-12 14:00:00 Out[facility] [id number] [facility] 2020-11-12 13:12:08 2020-11-12 13:27:08 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 2, [facility] 1.2.840.114 350.1.13.10 4.2.7.2.686 [id number] [facility] 2020-11-12 13:12:08 2020-11-12 13:27:08 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 2, Adc Lab [facility] Building 1.840.114 350.1.13.10 4.2.7.2.686 [id number] 2020-11-12 13:00:00 2020-11-12 13:00:00 Outpatient R [facility]OCHELLEIRINAUN[facility] [id number] [facility] 2020-11-09 10:30:00 2020-11-09 10:30:00 Outpatient R EDGAR GARCIA [facility] [id number] [facility] 2020-11-09 10:30:00 2020-11-09 10:30:00 Outpatient R EDGAR GARCIA [facility] [id number] [facility] 2020-11-09 00:00:00 2020-11-09 00:00:00 Letter (Out) Janet [facility] Office Building One 1..114 350.1.13.10 4.2.7.2.686 [id number] 044 [id number] [facility] 2020-11-09 00:00:00 2020-11-09 00:00:00 Letter (Out) Janet [facility] Office Building One 1.84.114 350.1.13.10 4.2.7.2.686 [id number] 044 [id number] 2020-11-07 00:00:00 2020-11-07 00:00:00 Patient Secure Msg Doctor Unassigned, [place] [facility] 1.20.114 350.1.13.10 4.2.7.2.686 [id number] [id number] [facility] 2020-11-06 14:58:36 2020-11-06 15:55:10 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, [facility] Pob I Rochelle GonzalesFormerly [facility] Office Building One 1.114 350.1.13.10 4.2.7.2.686 [id number] 044 [id number] [facility] 2020-11-06 14:58:36 2020-11-06 15:55:10 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 One 1.114 350.1.13.10 4.2.7.2.686 [id number] 044 [id number] 2020-11-06 14:00:00 2020-11-06 14:59:38 Outpatient R [facility] [id number] [facility] 2020-11-06 13:53:45 2020-11-06 14:59:38 Office Visit Janet [facility] Office Building One 1.114 350.1.13.10 4.2.7.2.686 [id number] 044 [id number] [facility] 2020-11-06 14:00:00 2020-11-06 14:00:00 Outpatient R [facility] [id number] [facility] 2020-11-06 00:00:00 2020-11-06 00:00:00 Letter (Out) Rochelle Gonzalestany [facility] Office Building One 1.114 350.1.13.10 4.2.7.2.686 [id number] [id number] [facility] 2020-10-31 00:00:00 2020-10-31 00:00:00 Patient Secure Msg Roslyn Benito [facility] BUILDING 1..114 350.1.13.10 4.2.7.2.686 [id number] [facility] 2020-10-17 00:00:00 2020-10-17 00:00:00 Outpatient R ROSLYN BENITO [facility] [id number] [facility] 2020-10-17 00:00:00 2020-10-17 00:00:00 [facility] [id number] [facility] 2020-10-16 17:00:00 2020-10-16 17:00:00 Outpatient R [facility] [id number] [facility] 2020-10-16 17:00:00 2020-10-16 17:00:00 Outpatient R [facility] [id number] [facility] 2020-10-16 00:00:00 2020-10-16 00:00:00 Telephone Isis Rubin [id number] [id number] [id number] [facility] 2020-10-15 00:00:00 2020-10-15 00:00:00 Patient Secure Msg Janet [facility] [address] [id number] [id number] [id number] [id number] [facility] 2020-10-12 13:00:00 2020-10-12 23:59:[address] [facility] [id number] [id number] [id number] [facility] 2020-10-12 14:24:26 2020-10-12 15:42:02 [facility] [id number] [id number] [id number] [id number] [facility] 2020-10-12 14:00:00 2020-10-12 15:42:02 Outpatient R ADROSLYN PACK [facility] [id number] [facility] 2020-10-12 14:00:00 2020-10-12 14:00:00 Outpatient R ADUMROSLYN [facility] [id number] [facility] 2020-09-21 00:00:00 2020-09-21 00:00:00 Outpatient R ADROSLYN PACK [facility] [id number] [facility] 2020-09-18 14:46:18 2020-09-18 15:01:18 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 2, Adc Lab AdRoslyn pack [facility] [id number] [id number] [id number] [facility] 2020-09-18 14:45:00 2020-09-18 14:45:00 Outpatient R ADROSLYN PACK [facility] [id number] [facility] 2020-09-18 14:45:00 2020-09-18 14:45:00 Outpatient R ADSIRENA, ROSLYN [facility] [id number] [facility] 2020-09-18 00:00:00 2020-09-18 00:00:00 Case Management AdRoslyn pack [facility] [facility] [id number] 350.1.13.10 4.2.7.2.686 [id number] 134 [id number] [facility] 2020-09-17 00:00:00 2020-09-17 00:00:00 Patient Secure Msg AdRoslyn pack [facility] 1.2.840.114 350.1.13.10 4.2.7.2.686 [id number] [facility] 2020-09-14 00:00:00 2020-09-14 00:00:00 Refill Irina Gonzales [facility] Office Building One 1.2.840.114 350.1.13.10 4.2.7.2.686 [id number] [facility] 2020-09-13 14:00:00 2020-09-13 14:00:00 Outpatient R [facility] [id number] [facility] 2020-09-13 14:00:00 2020-09-13 14:00:00 Outpatient R [facility] [id number] [facility] 2020-09-13 00:00:00 2020-09-13 00:00:00 Patient Secure Msg Roslyn Benito [facility] 1.2.840.114 350.1.13.10 4.2.7.2.686 [id number] 134 [id number] [facility] 2020-09-12 15:00:00 2020-09-12 16:13:07 Outpatient R ROSLYN BENITO [facility] [id number] [facility] 2020-09-12 14:28:33 2020-09-12 16:13:07 Office Visit Roslyn Benito [facility] 1.2.840.114 350.1.13.10 4.2.7.2.686 [id number] [facility] 2020-09-12 15:00:00 2020-09-12 15:00:00 Outpatient R ROSLYN BENITO [facility] [id number] [facility] 2020-08-30 15:30:00 2020-08-30 15:30:00 Outpatient RANGEL LOPEZ [facility] [id number] [facility] 2020-08-30 15:30:00 2020-08-30 15:30:00 Outpatient RANGEL LOPEZ [facility] [id number] [facility] 2020-08-27 00:00:00 2020-08-27 00:00:00 Patient Secure Msg Janet [facility] Office Building One .840.114 350.1.13.10 4.2.7.2.686 [id number] [facility] 2020-08-15 09:30:00 2020-08-15 09:30:00 Outpatient R THONG [facility] [id number] [facility] 2020-08-15 09:30:00 2020-08-15 09:30:00 Outpatient R THONG [facility] [id number] [facility] 2020-08-09 00:00:00 2020-08-09 00:00:00 Telephone Janet [facility] Office Building One .840.114 350.1.13.10 4.2.7.2.686 [id number] [facility] 2020-08-08 15:00:00 2020-08-08 15:00:00 Outpatient R THONG [facility] [id number] [facility] 2020-08-08 00:00:00 2020-08-08 00:00:00 Patient Secure Msg Janet [facility] Office Building One .840.114 350.1.13.10 4.2.7.2.686 [id number] [facility] 2020-08-08 00:00:00 2020-08-08 00:00:00 Patient Secure Msg Doctor Unassigned, [place] [facility] OFF[facility] BUILDING ONE .840.114 350.1.13.10 4.2.7.2.686 [id number] [id number] [facility] 2020-08-07 14:30:33 2020-08-07 14:50:33 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, Adc Fam Robertb Karol Janet [facility] Office Building One 1..114 350.1.13.10 4.2.7.2.686 [id number] 044 [id number] [facility] 2020-08-07 13:35:38 2020-08-07 14:45:20 Office Visit Janet [facility] Office Building One 1..114 350.1.13.10 4.2.7.2.686 [id number] [facility] 2020-08-07 13:30:00 2020-08-07 13:30:00 Outpatient R JANET [facility] [id number] [facility] 2020-03-01 00:00:00 2020-03-01 00:00:00 Patient Secure g To[facility] OFFICE BUILDING ONE 1..114 350.1.13.10 4.2.7.2.686 [id number] [facility] 2020-02-29 00:00:00 2020-02-29 00:00:00 Patient Secure g To[facility] OFFICE BUILDING ONE 1..114 350.1.13.10 4.2.7.2.686 [id number] [facility] 2020-02-06 00:00:00 2020-02-06 00:00:00 Patient Secure Msg Doctor Unassigned, [place] [facility] 1..114 350.1.13.10 4.2.7.2.686 [id number] [facility] 2020-01-31 08:50:00 2020-01-31 15:58:00 Emergency Y[facility]uf [facility] 1.0.114 350.1.13.10 4.2.7.2.686 [id number] [facility] 2020-01-31 08:37:00 2020-01-31 08:37:00 Emergency X [facility] ERT [id number] [facility] Notes Date/Time Note Provider Source 2023-10-21 08:35:57 Please update patient chart [facility] 2023-07-03 11:46:37 From: Sailaja Atkins To: Office of Sav Lundberg MD Sent: 07/03/2023 3:04 AM HAND WOOD SANDER Subject: Medication Renewal Request Refills have been requested for the following medications: hydrOXYzine 50 mg tablet [Sav Lundberg] Preferred pharmacy: [id number] [place] [address] Delivery method: Pickup Recent Visits No visits were found meeting these conditions. Showing recent visits within past 540 days with a meds authorizing provider and meeting all other requirements Future Appointments No visits were found meeting these conditions. Showing future appointments within next 150 days with a meds authorizing provider and meeting all other requirements WOOD SANDER [facility] 2023-07-03 07:08:09 PLEASE REVIEW AND FILL IF APPROPRIATE Last Refilled: albuterol 90 mcg/actuation inhaler8.5 g004/24/2022----Sig: Inhale 2 Puffs every 4 (four) hours as needed for Wheezing or Shortness of Breath.Sent to pharmacy as: albuterol sulfate HFA 90 mcg/actuation aerosol inhaler (VENTOLIN)Class: eRXRoute: InhalationOrder: [id number]/Time Signed: 04/24/2022 08:17E-Prescribing Status: Receipt confirmed by pharmacy (04/24/2022 8:18 AM HAND WOOD SANDER) fluticasone propion-salmeteroL (ADVAIR DISKUS) 250-50 mcg/dose inhalation disk 60 Each 2 09/25/2021 -- -- Sig: Inhale 1 Puff every 12 (twelve) hours. Sent to pharmacy as: fluticasone 250 mcg-salmeteroL 50 mcg/dose blistr orvilledr for inhalation (Advair Diskus) Class: eRX Route: Inhalation Order: [id number] Date/Time Signed: 09/25/2021 11:21 E-Prescribing Status: Receipt confirmed by pharmacy (09/25/2021 11:21 AM CDT) Notes: LAST OFFICE VISIT 08/12/21 Recent Visits No visits were found meeting these conditions. Showing recent visits within past 540 days with a meds authorizing provider and meeting all other requirements Future Appointments No visits were found meeting these conditions. Showing future appointments within next 150 days with a meds authorizing provider and meeting all other requirements A Naranjo RN [facility] 2023-06-16 13:47:05 Called patient left her a message to call clinic to schedule an appt, or she may request from her pcp A Kellogg [facility] 2023-06-15 15:11:38 Patient will need a follow up for refills or she can get refills from PCP. [facility] 2023-06-15 15:03:58 Refill request routed to provider for review: Requested Prescriptions Pending Prescriptions Disp Refills gabapentin 100 mg capsule 90 capsule 0 Sig: Take 3 capsules by mouth at bedtime. There is no refill protocol information for this order SHAAN 09/05/2021 Plan: - Start gabapentin 100 mg qhs, can titrate up to 300 mg qhs as tolerated RTC 3 months Pt no-showed 04/24/2022 & 02/03/2022 Recent Visits No visits were found meeting these conditions. Future Appointments No visits were found meeting these conditions. No visits with results within 6 Month(s) from this visit. Latest known visit with results is: Admission on 04/18/2022, Discharged on 04/18/2022 Component Date Value SARS-CoV-2 Rapid ID NOW 04/18/2022 Not Detected Rapid Influenza A 04/18/2022 Negative Rapid Influenza B 04/18/2022 Negative COVID DMT Interpretation 04/18/2022 Value:Interpretation/Recomme ndations: Molecular NAAT Tests for Active Infection with the SARS-CoV-2 Virus: The patient has currently tested negative for the SARS-CoV-2 virus that causes COVID-19 illness. This likely indicates that the patient does not have an active infection with the SARS-CoV-2 virus. However, infection is not completely ruled out as the false negative rate for molecular NAAT testing using a nasopharyngeal sample can be up to 30%, mostly dependent on the timing of sample collection in relation to illness onset (either too early or too late) and nasopharyngeal sampling deficiencies rather than inherent test capabilities. If the patient has symptoms concerning for COVID-19 illness, the patient should still isolate for at least 5 days and a repeat NAAT test (PCR, Rapid ID Now, etc.) is recommended. Additionally, if the patient is symptomatic but tests negative for COVID-19, influenza should also be clinically suspected given the increasing incidence of influenza in [place], as well as other upper respiratory infections (i.e., the common cold). Lastly, if the patient was exposed to COVID-19, current CDC guidelines recommend wearing a high-quality mask when around others for 10 days with testing on day 5 in lieu of quarantining. Tests for IgM and/or IgG Antibodies to the SARS-CoV-2 Virus: Testing for IgM and IgG antibodies approximately 3 weeks after illness onset will likely indicate if the patient has produced detectable antibodies to the SARS-CoV-2 virus. However, some patients may take longer to develop detectable antibodies, while others infected with SARS-CoV-2 may never develop detectable antibodies, particularly those who have had mild or asymptomatic illness. Of note, if the patient was vaccinated earlier than 1-2 weeks prior to antibody testing, any positive SARS-CoV-2 IgG antibody result may be due to vaccination. The specific duration and strength of immunity from SARS-CoV-2 IgG antibodies is highly variable between individuals and is dependent on a variety of factors, including infection vs. vaccination response, the waning effect of antibodies overtime, initial infection severity, the strength of the patient's own immune system, and the variants to which the patient is exposed. Specifically, some Omicron subvariants have been shown to be more effective in evading currently existing antibodies, which likely explains re-infections in people who have been previously vaccinated and/or infected. Interpretation Result Comments: These interpretation comments are based upon the following COVID-19 tests the patient has had at [facility]: molecular nucleic acid amplification tests (NAAT) (specifically PCR testing and Rapid ID Now testing) and antibody tests. It does not take into account antigen testing or any additional testing that a patient may have had outside of the [facility] medical record. COVID Results 04/18/2022 Value:SARS-CoV-2 Rapid ID NOW (no units) Date Value 04/18/2022 Not Detected 12/21/2020 Not Detected CoV-2 IgG (no units) Date Value 11/12/2020 Negative CoV-2 IgM (no units) Date Value 11/12/2020 Negative ICD-10-CM 1. Myalgia M79.10 Please advise. Susi Rodriguez 06/15/2023 3:03 PM WOOD SANDER Susi Rodriguez [facility] 2023-06-15 07:15:26 From: Sailaja Atkins To: Office of Sav Lundberg MD Sent: 06/14/2023 2:31 PM HAND WOOD SANDER Subject: Medication Renewal Request Refills have been requested for the following medications: hydrOXYzine 50 mg tablet [Sav Lundberg] Patient Comment: I'm trying to get mess filled I'm awaiting admission at [facility] and I have to go in with my medication for treament Preferred pharmacy: [id number] [place] [address] Delivery method: Pickup Medication renewals requested in this message routed separately: clindamycin 1 % gel [Lukas Romero] risankizumab-rzaa (SKYRIZI) 150 mg/mL PnIj [Lukas Romero] risankizumab-rzaa (SKYRIZI) 150 mg/mL PnIj [Lukas Romero] fluticasone propion-salmeteroL (ADVAIR DISKUS) 250-50 mcg/dose inhalation disk [Kaitlin Mckeon] buPROPion HCL, smoking deter, 150 mg Tb12 [Kaitlinaileen Mckeon] Patient Comment: I'm waiting on admission at [facility] but I need medication before I can get treatment gabapentin 100 mg capsule [Ngozi Torres] [facility] 2023-06-10 14:04:56 Patient states "I am having a mental health crisis. [facility] out [facility]2023 and I having anxiety and panic attacks. My social anxiety is really really high." Patient states that she was recently released from [facility], has not had her zyprexa or haldol. Having anxiety and coping issues. A Davis RN [facility] 2023-05-28 12:07:33 Pt given printed and verbal discharge instructions regarding dehydration, encouraged hydration, Pt verbalized understanding of instructions, pt awake alert oriented, resp reg unlabored, skin w/d, color appropriate for race, moves all ext well,pt encouraged to follow up with pcp Advised to seek medical attention for new/prolonged/worsening of symptoms, Symptoms improved No adverse reaction to meds given in ER noted upon discharge PIV d'cd, dressing to site, catheter in tact. Awake, alert oriented, resp reg unlabored, skin w/d, pt leaving amb with steady gait, in no apparent distress, A Singer RN [facility] 2023-05-28 10:40:48 Pt thinks she is dehydrated. Has not been vomiting or having diarrhea. Last BM 2 days ago. States her psoriasis is flaring, her skin feels dry and her lips started cracking this morning. She bought case of water yesterday to start drinking more. A Joyce RN [facility] 2023-05-28 10:35:00 [facility] Emergency Department Note Patient Name: Sailaja Atkins Date of : 1990 32 year old female Treatment Room: [facility] ED [facility] Primary Care Physician: Kaitlin Mckeon Patient Escorted by: Self [9] Mode of Arrival: Personal means [1] EMS Treatment Prior to ED Arrival: Travel and Exposure Screening: Symptoms Does patient have any of these symptoms?: (not recorded) Exposure Screening Has patient had contact with someone with a communicable disease in the last month?: (not recorded) Diseases exposed to:: (not recorded) Is Patient ?: (not recorded) Exposure Date: (not recorded) Chief Complaint: Chief Complaint Patient presents with Dehydration History of Present Illness: The patient presents from home for evaluation for feeling dehydrated since yesterday. No nausea or vomiting. No diarrhea. She reports she did drink a lot of water yesterday but did not urinate very much. No chest pain or shortness of breath. No cough or URI symptoms. No fevers or chills. She does have a history of psoriasis and reports been acting up recently. No sick contacts. Here for evaluation. 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 Vaping Use Never used Alcohol Use Yes. Comments: occassional wine (not weekly). Drug Use Not Currently. Comments: Hx of IV drug use- last used 2017 Sexual Activity Sexually active; Partners: Male. Past Surgical History: Past Surgical History: Procedure Laterality Date ADENOIDECTOMY DILATION/CURETTAGE,DIAGNOSTI C TONSILLECTOMY Review of Systems: Review of Systems Constitutional: Positive for fatigue. Negative for chills and fever. Respiratory: Negative for cough and shortness of breath. Cardiovascular: Negative for chest pain. Gastrointestinal: Negative for abdominal pain and vomiting. Genitourinary: Negative for dysuria. Musculoskeletal: Negative for arthralgias, neck pain and neck stiffness. Skin: Negative for wound. Neurological: Negative for dizziness. Psychiatric/Behavioral: Negative for agitation. Endocrine: Negative for goiter. Physical Exam: ED Triage Vitals [05/28/23 1041] Weight 83.9 kg (185 lb) Actual or estimated Estimated by patient/family report Height 1.575 m (5' 2") BP 138/82 Pulse 110 Resp 18 Temp 36.6 ?C (97.9 ?F) Temp source Oral SpO2 99 % Measured on Room air Physical Exam Vitals and nursing note reviewed. Constitutional: Appearance: Normal appearance. She is normal weight. HENT: Head: Normocephalic and atraumatic. Cardiovascular: Rate and Rhythm: Regular rhythm. Tachycardia present. Pulses: Normal pulses. Pulmonary: Effort: Pulmonary effort is normal. No respiratory distress. Breath sounds: No stridor. No wheezing or rhonchi. Abdominal: General: There is no distension. Musculoskeletal: General: Normal range of motion. Cervical back: Normal range of motion and neck supple. Skin: General: Skin is warm and dry. Comments: Psoriasis noted to bilateral elbows. Neurological: General: No focal deficit present. Mental Status: She is alert and oriented to person, place, and time. Radiology: No orders to display Lab Results: Lab Results - No data to display EKG: If EKG completed, see Procedure Note. Orders and Treatments: No orders of the defined types were placed in this encounter. Orders Placed This Encounter Medications NaCl 0.9% (NS) bolus infusion 1,000 mL First Provider Eval: ED Events Date/Time Event User Comments 05/28/23 104 Medical Screening Begins SUSI MORENO DO -- 05/28/23 104 First Provider Evaluation SUSI MORENO DO -- ED COURSE Diagnosis/Impression as of 05/28/23 1201 Dehydration Procedures: Procedures MDM: Medical Decision Making The patient presents from home for evaluation for feeling like she is dehydrated since yesterday. No nausea or vomiting or diarrhea. No sick contacts. No fevers or chills. No cough or URI symptoms. She does have a history of psoriasis and reports been acting up recently. She is tachycardic upon arrival to the ER. She has dry mucous membranes. She has psoriatic skin changes noted to her bilateral elbows. Will give the patient IV fluids here in the ER for suspected dehydration. Anticipate discharge home later. 1200 -the patient is doing well in the ER. Her heart rate has come down to the 80s after IV fluids. She is feeling better. She remained stable here in the ER and is okay for discharge home with PC follow-up. Problems Addressed: Dehydration: acute illness or injury Risk OTC drugs. Prescription drug management. Flowsheet Documentation: Scoring Tools: No data recorded Disposition/Condition: ED Disposition ED Disposition Disch - Home Condition Stable Comment -- Discharge Medications: Patient's Medications START taking these medications No medications on file CONTINUE taking these medications which have NOT CHANGED ALBUTEROL 90 MCG/ACTUATION INHALER Inhale 2 Puffs every 4 (four) hours as needed for Wheezing or Shortness of Breath. ARIPIPRAZOLE 5 MG TABLET BENZONATATE 100 MG CAPSULE Take 1 capsule by mouth 3 (three) times daily as needed for Cough. BUPROPION HCL, SMOKING DETER, 150 MG TB12 Take 150 mg by mouth 2 (two) times daily. [id number]-HVL F 50-300-40 MG PER CAPSULE wnkgdfcleg-nwipduhkjbjjj-tfx feine 50 mg-300 mg-40 mg capsule Take 1 capsule every 6-8 hours by oral route as needed. CALCIPOTRIENE-BETAMETHASONE 0.005-0.064 % OINTMENT Apply to area(s) daily. CLINDAMYCIN 1 % GEL Apply to affected area(s) 2 (two) times daily as needed for Rash (groin). CLOBETASOL 0.05 % OINTMENT Apply to area(s) 2 (two) times daily. ESCITALOPRAM OXALATE 20 MG TABLET escitalopram 20 mg tablet TAKE 1 TABLET BY MOUTH EVERY DAY FLUTICASONE PROPION-SALMETEROL (ADVAIR DISKUS) 250-50 MCG/DOSE INHALATION DISK Inhale 1 Puff every 12 (twelve) hours. FUROSEMIDE 20 MG TABLET Take 1 tablet by mouth every morning. GABAPENTIN 100 MG CAPSULE Take 3 capsules by mouth at bedtime. HALOPERIDOL 10 MG TABLET HYDROXYZINE 50 MG TABLET Take 1 tablet by mouth 3 (three) times daily as needed for Anxiety. METHYLPREDNISOLONE 4 MG TABLETS Take by mouth SEE-INSTRUCTIONS. follow package directions OLANZAPINE 15 MG TABLET PREDNISONE 20 MG TABLET prednisone 20 mg tablet TAKE 2 TABLETS BY MOUTH DAILY X 5 DAYS RISANKIZUMAB-RZAA (SKYRIZI) 150 MG/ML PNIJ inject 1 Pen under the skin every 4 (four) weeks. RISANKIZUMAB-RZAA (SKYRIZI) 150 MG/ML PNIJ inject 1 Pen under the skin every 12 (twelve) weeks. TRIAMCINOLONE ACETONIDE 0.1 % CREAM triamcinolone acetonide 0.1 % topical cream APPLY 3 TIMES DAILY UNTIL DIRECTED TO STOP VARENICLINE (CHANTIX STARTING MONTH BOX) 0.5 MG (11)- 1 MG (42) TABLET Take one 0.5mg tab by mouth once daily for 3 days, then one 0.5mg tab twice daily for 4 days, then one 1mg tab twice daily. START taking Modified Medications as Prescribed No medications on file STOP taking these medications No medications on file Follow-up: Electronically signed by: Susi Moreno DO 05/28/23 1201 [facility]
[2023-12-28] MEDS ORDERED: NA CHLORIDE 0.9% 1,000 ML ONE (07:40)
[2023-12-28] MEDS ORDERED: ONDANSETRON 4 MG/2 ML VIAL ONE (07:40)
[2023-12-28 08:48] LABS: Absolute Basophils 0.1 K/uL (0-0.5); Absolute Eosinophils 0.2 K/uL (0-0.5); Absolute Lymphocytes (CBC) 1.7 K/uL (0.7-4.9); Absolute Monocytes 0.4 K/uL (0.1-1.3); Absolute Neutrophil 4.5 K/uL (1.8-8.0); Eosinophils % 2.4 % (0-4.4); Hematocrit 36.4 % (36.0-45.0); Hemoglobin 12.3 g/dL (12.0-15.0); Lymphocytes % 25.3 % (15.3-44.8); MCH 29.9 pg (27.0-35.0); MCHC 33.9 g/dL (32.0-36.0); MCV 88.3 fL (80-100); MPV 8.8 fL (7.6-11.3); Monocytes % 6.3 % (3.3-12.3); Nucleated Red Blood Cells % 0.1 % (0-0); Platelets 268 thou/uL (152-406); RBC Red Blood Cell Count 4.12 M/uL (3.86-4.86); Red Cell Distribution Width 13.9 % (12.1-15.2)
[2023-12-28 09:00] LABS: Anion Gap 6.4 mEq/L (5.0-15.0); Potassium 3.4 mEq/L (3.5-5.1)
--- NOTE | 2023-12-28 09:08 | EDPHYS ---
Physician Documentation [facility] Name: Sailaja Atkins Age: 33 yrs Sex: Female : 1990 Arrival Date: 12/28/2023 Time: 06:59 Bed 12 Private MD: ED Physician Parvez Lomeli HPI: 12/27 07:23 This 33 yrs old Female presents to ER via Unassigned with complaints of ec2 THROAT PAIN/ BLISTERS. 07:23 Patient arrives today for evaluation of possible dehydration as well as poor p.o. ec2 intake. Reports that she has been on methotrexate for several weeks, states that she generally feels like she is not getting enough fluid intake. Denies any vomiting or diarrhea. She also states that her main concerns that she has been unable to establish care, states that she needs a primary care doctor as well as a referral to a veterinary x ray operator. Denies fevers or chills, denies issues with abdominal pain.. 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 - Infectious Disease History:: Denies. - Social history:: Smoking status: Patient reports the use of cigarette tobacco products. ROS: 07:23 Constitutional: as per hpi ec2 Exam: 07:23 Constitutional: GEN: NAD Head: atraumatic Eyes: EOMI Ears: External ears are normal. ec2 Mouth: No significant blisters, no disclamation of the oropharynx. No significant masses appreciated. CV: regular rate LUNGS: no respiratory distress ABD: non-distended SKIN: no evidence of rashes MSK: no evidence of trauma NEURO: moves all extremities equally Vital Signs: 07:25 BP 117 / 88; Pulse 95; Resp 16; Temp 98.5(O); Pulse Ox 100% on R/A; Weight 68.04 kg; hb Height 5 ft. 2 in. ; Pain 3/10; 09:14 BP 120 / 63; Pulse 88; Resp 17; Pulse Ox 100% on R/A; ll1 07:25 Body Mass Index 27.44 (68.04 kg, 157.48 cm) hb 07:25 Pain Scale: Adult hb MDM: 07:22 Patient medically screened. ec2 07:23 Data reviewed: vital signs. ED course: Patient arrives today for evaluation of poor ec2 p.o. intake as well as to establish care with physicians. Examination remarkable for well-appearing nontoxic dividual is otherwise in no acute distress with reassuring examination. Will give the patient crystalloid, Zofran. Patient is hemodynamically stable and well-appearing in no acute distress. Patient ultimately needs to establish with primary care for her needs.. 09:07 ED course: Metabolic profile shows slight hypokalemia, CBC reassuring. On reassessment ec2 patient is well-appearing. Will discharge home. Return precautions given. . 12/27 07:26 Order name: CBC with Diff; Complete Time: 09:07 ec2 12/27 07:26 Order name: BMP; Complete Time: 09:07 ec2 08 07:23 Order name: IV Start; Complete Time: 08:41 ec2 Administered Medications: 08:41 Drug: NS 0.9% IV 1000 ml IV at 1 bolus Per protocol; 1000 mL bolus Route: IV; Rate: 1 hb bolus; Site: left jugular; 09:50 Follow up: Response: No adverse reaction; IV Status: Completed infusion; IV Intake: ll1 980ml 08:41 Drug: Ondansetron IVP 4 mg IVP once; over 2 minutes Route: IVP; Site: left jugular; hb 09:50 Follow up: Response: No adverse reaction; Nausea is decreased ll1 Disposition Summary: 12/28/23 09:07 Discharge Ordered Notes: Location: Home ec2 Condition: Stable ec2 Diagnosis - Dehydration ec2 Followup: ec2 - With: Private Physician - When: - Reason: Re-evaluation by your physician Followup: ec2 - With: Sunshine Head MD - When: - Reason: Recheck today's complaints Followup: ec2 - With: Tressa Doty MD - When: - Reason: Recheck today's complaints Discharge Instructions: - Discharge Summary Sheet ec2 - Dehydration, Adult ec2 Forms: - Medication Reconciliation Form ec2 - Antibiotic Education ec2 - Prescription Opioid Use ec2 - Patient Portal Instructions ec2 - Leadership Thank You Letter ec2 Prescriptions: - risperidone 1 mg Oral Tablet,disintegrating - take 1 tablet ORAL route 2 times per day; 60 tablet; Refills: 0, Product ec2 Selection Permitted Signatures: Dispatcher [employer] EDEva Aranda RN RN Parvez Lomeli MD MD ec2 Andreina Lindsay RN ll1 Corrections: (The following items were deleted from the chart) 07: 07:26 CBC+H.LAB.BRZ ordered. EDMS EDMS 07: 07:27 BASIC METABOLIC PANEL+C.LAB.BRZ ordered. EDMS EDMS 07:28 07:26 PMHx: Non-Hodgkin's Lymphoma (Tonsillitis); hb hb
--- NOTE | 2023-12-28 09:08 | ER ---
Nurse's Notes [facility] Name: Sailaja Atkins Age: 33 yrs Sex: Female : 1990 Arrival Date: 12/28/2023 Time: 06:59 Bed 12 Private MD: Diagnosis: Dehydration Presentation: 12/27 07:25 Chief complaint: Patient states: "I started taking methotrexate and I have mouth hb blisters and nausea, I feel dehydrated.". Coronavirus screen: At this time, the client does not indicate any symptoms associated with coronavirus-19. Ebola Screen: No symptoms or risks identified at this time. Initial Sepsis Screen: Does the patient meet any 2 criteria? No. Patient's initial sepsis screen is negative. Does the patient have a suspected source of infection? No. Patient's initial sepsis screen is negative. Risk Assessment: Do you want to hurt yourself or someone else? Patient reports no desire to harm self or others. Onset of symptoms was December 24, 2023. 07:25 Method Of Arrival: Ambulatory hb 07:25 Acuity: NGOC 3 hb Triage Assessment: 07:28 General: Appears in no apparent distress. Behavior is calm, cooperative. Pain: Pain hb currently is 3 out of 10 on a pain scale. EENT: Reports blisters on tongue. Neuro: Level of Consciousness is awake, alert, obeys commands, Oriented to person, place, time, situation. Cardiovascular: Patient's skin is warm and dry. Respiratory: Respiratory effort is even, unlabored, Respiratory pattern is regular, symmetrical. GI: Reports nausea. : No signs and/or symptoms were reported regarding the genitourinary system. Derm: Skin is pink, warm \\T\\ dry. Musculoskeletal: No signs and/or symptoms reported regarding the musculoskeletal system. 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 - Infectious Disease History:: Denies. - Social history:: Smoking status: Patient reports the use of cigarette tobacco products. Screenin:29 [facility] ED Fall Risk Assessment (Adult) History of falling in the last 3 months, hb including since admission No falls in past 3 months (0 pts) Confusion or Disorientation No (0 pts) Intoxicated or Sedated No (0 pts) Impaired Gait No (0 pts) Mobility Assist Device Used No (0 pt) Altered Elimination No (0 pt) Score/Fall Risk Level 0 - 2 = Low Risk Oriented to surroundings, Maintained a safe environment, Educated pt \\T\\ family on fall prevention, incl call for assistance when getting out of bed. Abuse screen: Denies threats or abuse. Denies injuries from another. Nutritional screening: No deficits noted. Tuberculosis screening: No symptoms or risk factors identified. Assessment: 07:29 General: See triage assessment. hb 08:35 Reassessment: No changes from previously documented assessment. Patient and/or family ll1 updated on plan of care and expected duration. Pain level reassessed. 09:02 Reassessment: Discharge pending completion of IV fluids. hb 09:15 Reassessment: No changes from previously documented assessment. Patient and/or family ll1 updated on plan of care and expected duration. Pain level reassessed. Patient is alert, oriented x 3, equal unlabored respirations, skin warm/dry/pink. 09:54 Reassessment: No changes from previously documented assessment. Patient and/or family ll1 updated on plan of care and expected duration. Pain level reassessed. Patient is alert, oriented x 3, equal unlabored respirations, skin warm/dry/pink. Patient states feeling better. Vital Signs: 07:25 BP 117 / 88; Pulse 95; Resp 16; Temp 98.5(O); Pulse Ox 100% on R/A; Weight 68.04 kg; hb Height 5 ft. 2 in. ; Pain 3/10; 09:14 BP 120 / 63; Pulse 88; Resp 17; Pulse Ox 100% on R/A; ll1 07:25 Body Mass Index 27.44 (68.04 kg, 157.48 cm) hb 07:25 Pain Scale: Adult hb ED Course: 07:11 Patient arrived in ED. gm2 07:15 Parvez Lomeli MD is Attending Physician. ec2 07:26 Triage completed. hb 07:28 Arm band placed on. hb 07:29 Patient has correct armband on for positive identification. Provided Education on: use hb of mariela light. 07:45 Missed attempt(s): 22 gauge in left upper arm. Bleeding controlled, band aid applied, ll1 catheter tip intact. 07:59 Missed attempt(s): 20 gauge in right forearm. Bleeding controlled, band aid applied, hb catheter tip intact. 08:07 Missed attempt(s): 20 gauge in right upper arm. Bleeding controlled, band aid applied, hb catheter tip intact. 08:35 Inserted saline lock: 20 gauge in left EJ, using aseptic technique. ,using aseptic hb technique. by Victor Hugo DE LA CRUZ Blood collected. Flushed with 10 mL NS. 08:37 Initial lab(s) drawn, by ED staff, sent to lab. hb 08:41 BMP Sent. hb 08:41 CBC with Diff Sent. hb 09:07 Sunshine Head MD is Referral Physician. ec2 09:07 Tressa Doty MD is Referral Physician. ec2 09:15 No provider procedures requiring assistance completed. ll1 09:55 IV discontinued, intact, bleeding controlled, No redness/swelling at site. Pressure ll1 dressing applied. Administered Medications: 08:41 Drug: NS 0.9% IV 1000 ml IV at 1 bolus Per protocol; 1000 mL bolus Route: IV; Rate: 1 hb bolus; Site: left jugular; 09:50 Follow up: Response: No adverse reaction; IV Status: Completed infusion; IV Intake: ll1 980ml 08:41 Drug: Ondansetron IVP 4 mg IVP once; over 2 minutes Route: IVP; Site: left jugular; hb 09:50 Follow up: Response: No adverse reaction; Nausea is decreased ll1 Medication: 07:29 VIS not applicable for this client. hb Intake: 09:50 IV: 980ml; Total: 980ml. ll1 Outcome: 09:07 Discharge ordered by . ec2 09:55 Discharged to home ambulatory, ll1 09:55 Condition: stable 09:55 Discharge instructions given to patient, Instructed on discharge instructions, follow up and referral plans. medication usage, Demonstrated understanding of instructions, follow-up care, medications, Prescriptions given X 2, 09:55 Patient left the ED. ll1 Signatures: Eva Salas RN RN hb Andreina Lindsay RN RN ll1 Parvez Lomeli MD MD 2 Marilyn Dalton 2 Corrections: (The following items were deleted from the chart) 07:28 07:26 PMHx: Non-Hodgkin's Lymphoma (Tonsillitis); hb hb
[2023-12-28 11:43] VITALS: TEMP 98.5; O2SAT 100
[2023-12-28 11:58] VITALS: BP 120/63
== END 2023-12-28 09:55 | disposition home or self-care (01) ==
LOC: ER 06:59
DX: E86.0 Dehydration (principal)
CPT/HCPCS: 96361; 85025; 80048; 36415; 96374; 99284; J2405; J7030

== ENCOUNTER 2024-05-23 08:42 | Emergency (ER) | payer OTHER ==
--- OUTSIDE RECORDS SUMMARY | 2024-05-23 08:46 | XMS REPORT | Continuity of Care Document ---
Author Name Unknown Address [address] [facility] [address] [place] [address] [facility] thconnect Address [address] [facility] [address] [place] [address] Care Team Providers Care Calender Roll Operator Name Role Phone PCP, PATIENT DOES NOT HAVE A Primary Care Physic maria m Unavailable ROSLYN BENITO Attending Clinician Unavailable ROSLYN BENITO Attending Clinician Unavailable KAITLIN MCKEON Attending Clinician Unavailable BRANDON PALACIOS Attending Clinician Unavail able BRANDON PALACIOS Attending Clinician Unavail able DAYANA HAMMONDS Attending Clinician Unavailable DAYANA HAMMONDS Attending Clinician Unavailable Kourtney Petersen Attending Clinician [phone] Doctor Unassigned, [place] Attending Clinician U yesiailKOURTNEY Epperson Attending Clinician Unavailable Brandon Palacios MD Attending Clinician NICOLAS GONSALEZ Attending Clinician Unavailable Kaitlin Buenrostro Attending Clinician [phone] Maru Mosquera Attending Clinician [phone] KAITLIN ORTIZ Attending Clinician Unavailab KATARINA Romano Attending Clinician Unavailable MD JOSHUA Attending Clinician Unavailab VASILE Osborne Attending Clinician Unavailable FARZAD BAER Attending Clinician Unavailable CHRIS PERRIN Attending Clinician Unavailable MARIYA ALBERTO Attending Clinician Unavail able IRINA CUELLAR Attending Clinician Unavailable BARBARA WINTERS Attending Clinician Unava ilable Linda LEASING PROFESSIONAL, Kaitlin Attending Clinician + [phone] Pcp, Patient Does Not Have A Attending Clinician Doctor Unassigned, [place] Attending Clinician U ayah Lundberg MD, Sav Attending Clinician [phone] Brian GARDNER, Ngozi Bustillos Attending Clinician +[phone] NADIA AMAYA Attending Clinician Unavailable NADIA AMAYA Attending Clinician Unavailable SUSI MORENO Attending Clinician Unavailab Susi Fox DO Attending Clinician [phone] YESENIA GRUBBS Attending Clinician Unavailable Geoffrey GORDON, Donnell Attending Clinician [phone] Denzel Danielle MD Attending Clinician [phone] NGOZI TORRES Attending Clinician Unavailable Lukas Romero MD Attending Clinician Unavailabl Ramiro Rodriguez DO Attending Clinician [phone] EDWIN ARREOLA Attending Clinician Unavailable Edwin Arreola DO Attending Clinician [phone] MONICA LACY Attending Clinician Unavail able Brandon Palacios MD Attending Clinician [phone] TUTU GE Attending Clinician UnaRosalie Manzanares LVN Attending Clinician UnavaJAY Chacon Attending Clinician Unavail able Lab, [facility] Attending Clinician Unavailable AUBREY FARRAR Attending Clinician Unavailabl e Hugh [facility], [place]ers Attending Clinician Unavaila ble [facility] Attending Clinician Unavailable DENZEL DANIELLE Attending Clinician Unavailable DENZEL DANIELLE Attending Clinician Unavailable Lab, Ang - Db Attending Clinician Unavailable Edgar Garcia MD Attending Clinician [phone] Fred Munguia MD Attending Clinician +[phone] MICHAEL PARKER Attending Clinician Unavailable MICHAEL PARKER Attending Clinician Unavailable Irina Blackman Attending Clinician [phone] FERNANDO MAHER Attending Clinician Unavailable EDGAR GARCIA Attending Clinician Unavailab Harry Duffy Attending Clinician + [phone] RAMIRO BALDERAS Attending Clinician Unavailab IRINA Irvin Attending Clinician Unavailabl e 2, [facility] Attending Clinician Unavailable Lab, Ad[facility] Fam Pob I Attending Clinician Unavailab riya Rubin RN, Isis Salamanca Attending Clinician RANGEL Brown Attending Clinician Unavailable Toñito GORDON, Anton Villeda Attending Clinician [phone] Melisa GORDON, Yusuf Anderson Attending Clinician [phone] EDWIN ARREOLA Admitting Clinician Unavailable YESENIA GRUBBS Admitting Clinician Unavailable HARRY SMITH Admitting Clinician Unavailable Payers Payer Name Policy Type Policy Number Effective Date Expirati on Date Source [id number]:00 [facility] [id number] 2021 00:00:00 [employer] 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 [id number] 2023 00:00:00 MEDICAID [place] [id number] 2021 00:00:00 Problems Condition Name Condition Details Condition Category Status Onset Date Resolution Date Last Treatment Date Treating Clinician Comments Source Mild intermitte nt asthma with acute exacerbati on Mild intermitte nt asthma with acute exacerbati on Disease Active 2023-05- 00:00: 00 [facility] Tongue sore Tongue sore Disease Active 2023-05 2- 00:00: 00 [facility] Encounter for completion of form with patient Encounter for completion of form with patient Disease Active 2023-05- 00:00: 00 [facility] Psoriatic arthritis (multi HCC) Psoriatic arthritis (multi HCC) Disease Active 2023-05 0- 00:00: 00 [facility] Chronic obstructiv e pulmonary disease with acute exacerbati on (multi HCC) Chronic obstructiv e pulmonary disease with acute exacerbati on (multi HCC) Disease Active 2023-05 0- 00:00: 00 [facility] Lymphatic disorder Lymphatic disorder Disease Active 5-13 00:00: 00 [facility] Chronic obstructiv e lung disease Chronic obstructiv e lung disease Disease Active 3-03 00:00: 00 [facility] Lower back injury Lower back injury Disease Active 3-03 00:00: 00 [facility] 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 3-03 00:00: 00 [facility] Traumatic injury Traumatic injury Disease Active 3-03 00:00: 00 [facility] Cyst of left ovary Cyst of left ovary Disease Active 3-16 00:00: 00 [facility] Kidney damage Kidney damage Disease Active 316 00:00: 00 [facility] Mixed anxiety and depressive disorder Mixed anxiety and depressive disorder Disease Active 16 00:00: 00 [facility] Psoriatic arthritis Psoriatic arthritis Disease Active 16 00:00: 00 [facility] 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 Disease Active 2-05 00:00: 00 [facility] Non Hodgkin's lymphoma, stage IIA Non Hodgkin's lymphoma, stage IIA Disease Active 1-15 00:00: 00 [facility] 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 Disease Active 02-05 00:00: 00 [facility] Bipolar 1 disorder, manic, mild Bipolar 1 disorder, manic, mild Disease Active -13 00:00: 00 [facility] Chronic back pain greater than 3 months duration Chronic back pain greater than 3 months duration Disease Active 13 00:00: 00 [facility] Scoliosis deformity of spine Scoliosis deformity of spine Disease Active 3-14 00:00: 00 [facility] Allergies, Adverse Reactions, Alerts Allergy Name Allergy Type Status Severity Reaction(s) Onset Date Inactive Date Treating Clinician Comments Source Ibuprofe n Propensi ty to adverse reaction s Active 01-30 00:00: 00 [facility] IBUPROFE N DRUG INGREDI Active 01-30 00:00: [facility] Ibuprofe n Propensi ty to adverse reaction s Active Swelling 11-16 00:00: 00 [facility] Jean - Externa l Family History Family Member Diagnosis Comments Start Date Stop Date Sourc e Natural [facility] Natural father Skin [facility] Maternal grandfather Colon Cancer [facility] Maternal grandfather Heart [facility] Maternal grandfather Skin Cancer [facility] Maternal grandmother Breast Cancer [facility] Maternal grandmother Diabetes [facility] Maternal grandmother Hypertension [facility] Maternal grandmother Thyroid Cancer [facility] Natural mother [facility] Natural mother COPD (chronic obstructive pulmonary disease) [facility] Natural mother [facility] Natural mother [facility] Natural [facility] Natural mother Kidney disease [facility] Natural mother Skin [facility] Paternal grandmother Skin Cancer [facility] Paternal grandmother CHF (congestive heart failure) [facility] Social History Social Habit Start Date Stop Date Quantity Comments Source History of tobacco use 2008-07-24 00:00:00 Cigarette Smoker [facility] Sexual orientation Bobby Jean - External ASSERTION Possible Bobby Jean - External History SDOH Alcohol Frequency [facility] History [facility] Alcohol Binge [facility] Tobacco use and exposure 2024-05-06 00:00:00 2024-05-06 00:00:00 Smokeless tobacco non-user [facility] Alcoholic beverage intake 2024-02-12 00:00:00 2024-02-12 00:00:00 Ex-drinker (finding) Rosemary Jean - External Cigarettes smoked current (pack per day) - Reported 2023-11-17 00:00:00 2023-11-17 00:00:00 Rosemary Jean - External Cigarette pack-years 2023-11-17 00:00:00 2023-11-17 00:00:00 Rosemary Jean - External History of Social function 2023-11-17 00:00:00 2023-11-17 00:00:00 Rosemary Jean - External Sex 2023-10-22 09:29:39 2023-10-22 09:29:39 Female (finding) Rosemary Jean - External Alcohol intake 2023-06-16 00:00:00 2023-06-16 00:00:00 Current drinker of alcohol (finding) [facility] Exposure to SARS-CoV-2 (event) 2022-05-03 00:00:00 2022-05-13 09:07:00 Not sure [facility] Alcohol Comment 2020-08-07 00:00:00 2020-08-07 00:00:00 occassional wine (not weekly). [facility] Sex assigned at 1990 00:00:00 1990 00:00:00 Rosemary Jean - External Smoking Status Start Date Stop Date Source Tobacco smoking consumption unknown [facility] Smokes tobacco daily 2024-05-06 00:00:00 [facility] Ex-smoker 2023-11-17 00:00:00 2023-11-17 00:00:00 Rosemary Jean - External Medications Ordered Medication Name Filled Medication Name Start Date Stop Date Current Medication? Ordering Clinician Indication Dosage Frequency Signature (SIG) Comments Components Source valACYclovi r 1 gram tablet 2023-05 00:00: 00 Yes [id number] 2 tablets PO Q12hrs x 1 day PRN cold sore; Quantity is enough to treat 6 episodes. [facility] mupirocin 2 % ointment 2023-05 00:00: 00 05-21 05:59 :00 Yes [id number] Apply to area(s) 3 (three) times daily for 14 days. [facility] methylPREDN ISolone (MEDROL, PABLO,) 4 mg tablets 2023-05 00:00: 00 05-12 05:59 :00 Yes [id number] Take by mouth SEE-INSTRU CTIONS for 5 days. follow package directions [facility] predniSONE (DELTASONE) 20 MG oral tablet 2023-05 00:00: 00 Yes [id number] 1 tab po tid x 5 days, then 1 tab po bid x 3 days, then 1 tab po daily x 2 days. [facility] Albuterol HFA 108 (90 Base) MCG/ACT IN AERS 2023-05 0 00:00: 00 Yes [id number] 2{puff} Q.25D Inhale 2 puffs into the lungs every 6 hours as needed for wheezing. [facility] Fluticasone -Salmeterol (Advair Diskus) 250-50 MCG/ACT inhalation AEROSOL POWDER, BREATH ACTIVATED 2023-05 0 00:00: 00 Yes [id number] 1{puff} Q.5D Inhale 1 puff into the lungs 2 times daily. [facility] sal[facility]anca Fluticasone -Salmeterol (Advair Diskus) 250-50 MCG/ACT inhalation AEROSOL POWDER, BREATH ACTIVATED 12-06 00:00: 00 03-02 00:00 :00 No [id number] 1{puff} Q.5D Inhale 1 puff into the lungs 2 times daily. [facility] salam[facility] Albuterol HFA 108 (90 Base) MCG/ACT IN AERS 12-06 00:00: 00 03-02 00:00 :00 No [id number] 2{puff} Q.25D Inhale 2 puffs into the lungs every 6 hours as needed for wheezing. [facility] salamanca Methotrexat e, PF, (Rasuvo) 7.5 MG/0.15ML subcutaneou s Solution Auto-inject or 11-17 00:00: 00 12-18 04:59 :00 No 7.5mg Q1W Inject 7.5 mg into the skin once a week. [facility] salamanca Methotrexat e Sodium (RHEUMATREX ) 10 MG oral tablet 11-16 00:00: 00 12-17 04:59 :00 No [id number] 10mg Q1W Take 1 tablet (10 mg total) by mouth once a week. [facility]mary salamanca Folic Acid 1 MG oral tablet 11-16 00:00: 00 12-17 04:59 :00 No [id number] 1mg QD Take 1 tablet (1 mg total) by mouth daily. [facility] salamanca haloperidoL (HALDOL) tablet 0.5 mg 06-10 20:44: 00 06-10 21:18 :00 No .5mg 0.5 mg, Oral, ONCE, 1 dose, On Thu06/10/23 at 1445, TO [facility] haloperidoL 5 mg tablet 06-10 00:00: 00 Yes [id number] 5mg Take 1 tablet by mouth in the morning and 1 tablet in the evening. [facility] NaCl 0.9% (NS) bolus infusion 1,000 mL 05-28 17:45: 00 05-28 17:57 :00 No 1000mL at 999 mL/hr, 1,000 mL, IV Infusion, ONCE, 1 dose, On Thu05/28/23 at 1145, TO [facility] buPROPion HCL, smoking deter, 150 mg Tb12 2021-05 00:00: 00 Yes [id number] 150mg Take 150 mg by mouth 2 (two) times daily. [facility] albuterol 90 mcg/actuati on inhaler 2021-05 00:00: 00 Yes [id number] 2{puff} Inhale 2 Puffs every 4 (four) hours as needed for Wheezing or Shortness of Breath. [facility] benzonatate 100 mg capsule 2021-05 00:00: 00 Yes [id number] 100mg Take 1 capsule by mouth 3 (three) times daily as needed for Cough. [facility] methylPREDN ISolone 4 mg tablets 2021-05 00:00: 00 Yes [id number] Take by mouth SEE-INSTRU CTIONS. follow package directions [facility] lidocaine 5 % (700 mg/patch) patch 2021-05 00:00: 00 04-19 05:59 :00 No [id number] 1{patch } Apply 1 Patch to area(s) once now for 1 dose. [facility] OLANZapine 15 mg tablet 2021-05 00:00: 00 Yes [facility] ARIPiprazol e 5 mg tablet 2021-05 00:00: 00 Yes [facility] haloperidoL 10 mg tablet 2021-05 00:00: 00 06-10 00:00 :00 No [facility] Butalbital- Acetaminoph en-Caff 50-300-40 mg per capsule 01-02 08:32: 56 Yes butalbital -acetamino phen-caffe ine 50 mg-300 mg-40 mg capsule Take 1 capsule every 6-8 hours by oral route as needed. [facility] BUPROPION HCL, SMOKING DETER, 150 mg Tb12 12-02 00:00: 00 04-23 00:00 :00 No [id number] TAKE 150 MG BY MOUTH DAILY. ZYBAN 150MG BY MOUTH FOR 3 DAYS AND THEN TWICE. START 1 WEEK PRIOR TO SMOKING CESSATION AND CONTINUE FOR 7-12 WEEKS. [facility] Butalbital- Acetaminoph en-Caff 50-300-40 mg per capsule 11-22 00:00: 00 01-02 00:00 :00 No butalbital -acetamino phen-caffe ine 50 mg-300 mg-40 mg capsule Take 1 capsule every 6-8 hours by oral route as needed. [facility] escitalopra m oxalate 20 mg tablet 11-09 22:50: 10 Yes escitalopr am 20 mg tablet TAKE 1 TABLET BY MOUTH EVERY DAY [facility] predniSONE 20 mg tablet 11-09 22:50: 10 Yes prednisone 20 mg tablet TAKE 2 TABLETS BY MOUTH DAILY X 5 DAYS [facility] triamcinolo ne acetonide 0.1 % cream 11-09 22:50: 10 Yes triamcinol one acetonide 0.1 % topical cream APPLY 3 TIMES DAILY UNTIL DIRECTED TO STOP [facility] risankizuma b-rzaa (SKYRIZI) 150 mg/mL PnIj 11-01 00:00: 00 Yes [id number] 150mg inject 1 Pen under the skin every 12 (twelve) weeks. [facility] calcipotrie ne-betameth asone 0.005-0.064 % ointment 10-22 00:00: 00 Yes [id number] Apply to area(s) daily. [facility] clindamycin 1 % gel 10-22 00:00: 00 Yes [id number] Apply to affected area(s) 2 (two) times daily as needed for Rash (groin). [facility] gabapentin 100 mg capsule 10-22 00:00: 00 Yes [id number] 300mg Take 3 capsules by mouth at bedtime. [facility] hydrOXYzine 50 mg tablet 10-22 00:00: 00 Yes [id number] 50mg Take 1 tablet by mouth 3 (three) times daily as needed for Anxiety. [facility] clindamycin 1 % gel 10-22 00:00: 00 Yes [id number] Apply to affected area(s) 2 (two) times daily as needed for Rash (groin). [facility] risankizuma b-rzaa (SKYRIZI) 150 mg/mL PnIj 10-22 00:00: 00 Yes [id number] 150mg inject 1 Pen under the skin every 4 (four) weeks. [facility] albuterol 90 mcg/actuati on inhaler 10-22 00:00: 00 04-23 00:00 :00 No [id number] 2{puff} Inhale 2 Puffs every 4 (four) hours as needed for Wheezing or Shortness of Breath. [facility] buPROPion HCL, smoking deter, (ZYBAN) 150 mg Tb12 10-22 00:00: 00 12-02 00:00 :00 No [id number] 150mg Take 150 mg by mouth daily. Zyban 150mg Po for 3 days and then bid. Start 1 week prior to smoking cessation and continue for 7-12 weeks. [facility] fluticasone propion-loan meteroL (ADVAIR DISKUS) 250-50 mcg/dose inhalation disk 5-04 00:00: 00 Yes [id number] 1{puff} Inhale 1 Puff every 12 (twelve) hours. [facility] risankizuma b-rzaa (SKYRIZI) 150 mg/mL PnIj 4-14 00:00: 00 11-01 00:00 :00 No [id number] 150mg inject 1 Pen under the skin every 12 (twelve) weeks. [facility] gabapentin 100 mg capsule 14 00:00: 00 10-20 00:00 :00 No [id number] 300mg Take 3 capsules by mouth at bedtime. [facility] clindamycin 1 % gel 11 00:00: 00 10-20 00:00 :00 No [id number] Apply to affected area(s) 2 (two) times daily as needed for Rash (groin). [facility] calcipotrie ne-betameth asone 0.005-0.064 % ointment 09-02 00:00: 00 10-20 00:00 :00 No [id number] Apply to area(s) daily. [facility] clobetasoL 0.05 % ointment 08-12 00:00: 00 Yes [id number] Apply to area(s) 2 (two) times daily. [facility] hydrOXYzine 50 mg tablet 08-12 00:00: 00 09-25 00:00 :00 No [id number] 50mg Take 1 tablet by mouth 3 (three) times daily as needed for Anxiety. [facility] buPROPion HCL, smoking deter, (ZYBAN) 150 mg Tb12 08-12 00:00: 00 09-25 00:00 :00 No [id number] 150mg Take 150 mg by mouth daily. Zyban 150mg Po for 3 days and then bid. Start 1 week prior to smoking cessation and continue for 7-12 weeks. [facility] amoxicillin -clavulanat e (AUGMENTIN) 875-125 mg per tablet 3-21 00:00: 00 08-23 04:59 :00 No [id number] 1{tbl} Take 1 tablet by mouth 2 (two) times daily for 10 days. [facility] albuterol 90 mcg/actuati on inhaler 07-25 00:00: 00 09-25 00:00 :00 No [id number] 2{puff} Inhale 2 Puffs every 4 (four) hours as needed for Wheezing or Shortness of Breath. [facility] fluticasone propion-loan meteroL (ADVAIR DISKUS) 250-50 mcg/dose inhalation disk 07-25 00:00: 00 09-25 00:00 :00 No [id number] 1{puff} Inhale 1 Puff every 12 (twelve) hours. [facility] clobetasoL 0.05 % ointment 2020-05 00:00: 00 08-10 00:00 :00 No [id number] Apply to area(s) 2 (two) times daily for 90 days. [facility] fluticasone propion-loan meteroL (ADVAIR DISKUS) 250-50 mcg/dose inhalation disk 2020-05 00:00: 00 07-25 00:00 :00 No [id number] 1{puff} Inhale 1 Puff every 12 (twelve) hours for 90 days. [facility] hydrOXYzine 50 mg tablet 2020-05 00:00: 00 08-10 00:00 :00 No [id number] 50mg Take 1 tablet by mouth 3 (three) times daily as needed for Anxiety. [facility] buPROPion HCL, smoking deter, (ZYBAN) 150 mg Tb12 2020-05 00:00: 00 08-10 00:00 :00 No [id number] 150mg Take 150 mg by mouth daily. Zyban 150mg Po for 3 days and then bid. Start 1 week prior to smoking cessation and continue for 7-12 weeks. [facility] buPROPion HCL, smoking deter, (ZYBAN) 150 mg [facility] 2020-05-11 00:00: 00 04-12 00:00 :00 No [id number] 150mg Take 150 mg by mouth daily. Zyban 150mg Po for 3 days and then bid. Start 1 week prior to smoking cessation and continue for 7-12 weeks. [facility] furosemide 20 mg tablet 2020-05 0- 00:00: 00 Yes [id number] 20mg Take 1 tablet by mouth every morning. [facility] methylPREDN ISolone 4 mg tablets 2020-05 00:00: 00 04-18 00:00 :00 No [id number] Take by mouth SEE-INSTRU CTIONS. follow package directions [facility] clindamycin 300 mg capsule 2020-05 00:00: 00 08-12 00:00 :00 No [id number] 300mg Take 1 capsule by mouth 4 (four) times daily. [facility] hydrOXYzine 50 mg tablet 2020-05 00:00: 00 04-12 00:00 :00 No [id number] 50mg Take 1 tablet by mouth 3 (three) times daily as needed for Anxiety. [facility] buPROPion HCL, smoking deter, (ZYBAN) 150 mg [facility] 02-08 00:00: 00 03-04 00:00 :00 No [id number] 150mg Take 150 mg by mouth daily for 45 days. Zyban 150mg Po for 3 days and then bid. Start 1 week prior to smoking cessation and continue for 7-12 weeks. [facility] hydrOXYzine 50 mg tablet 02-08 00:00: 00 03-04 00:00 :00 No [id number] 50mg Take 1 tablet by mouth 3 (three) times daily as needed for Anxiety for up to 30 days. [facility] methylPREDN ISolone 4 mg tablets 02-08 00:00: 00 02-15 04:59 :00 No [id number] Take by mouth SEE-INSTRU CTIONS for 6 days. follow package directions [facility] varenicline (CHANTIX STARTING MONTH BOX) 0.5 mg (11)- 1 mg (42) tablet 12-24 00:00: 00 Yes [id number] Take one 0.5mg tab by mouth once daily for 3 days, then one 0.5mg tab twice daily for 4 days, then one 1mg tab twice daily. [facility] triamcinolo ne acetonide 0.1 % ointment 12-24 00:00: 04-12 00:00 :00 No [id number] Apply to area(s) 2 (two) times daily. [facility] escitalopra m oxalate 20 mg tablet 12-24 00:00: 00 02-08 00:00 :00 No [id number] 20mg Take 1 tablet by mouth daily. [facility] benzonatate 100 mg capsule 12-22 00:00: 00 04-18 00:00 :00 No [id number] 100mg Take 1 capsule by mouth 3 (three) times daily as needed for Cough. [facility] albuterol 90 mcg/actuati on inhaler 12-22 00:00: 00 07-25 00:00 :00 No [id number] 2{puff} Inhale 2 Puffs every 4 (four) hours as needed for Wheezing or Shortness of Breath. [facility] cephALEXin 500 mg capsule 12-22 00:00: 00 12-30 04:59 :00 No [id number] 500mg Take 1 capsule by mouth 4 (four) times daily for 7 days. [facility] predniSONE 20 mg tablet 12-22 00:00: 00 12-27 04:59 :00 No [id number] 20mg Take 1 tablet by mouth 2 (two) times daily for 4 days. [facility] triamcinolo ne acetonide 0.1 % ointment 15 00:00: 00 11-30 00:00 :00 No [id number] Apply to area(s) 2 (two) times daily. [facility] varenicline (CHANTIX STARTING MONTH BOX) 0.5 mg (11)- 1 mg (42) tablet 11-06 00:00: 00 11-30 00:00 :00 No [id number] Take one 0.5mg tab by mouth once daily for 3 days, then one 0.5mg tab twice daily for 4 days, then one 1mg tab twice daily. [facility] escitalopra m oxalate 20 mg tablet 11-06 00:00: 00 11-30 00:00 :00 No [id number] 20mg Take 1 tablet by mouth daily. [facility] calcipotrie ne-betameth asone 0.005-0.064 % ointment 09-17 00:00: 00 11-06 00:00 :00 No [id number] Apply to area(s) daily. [facility] escitalopra m oxalate 20 mg tablet 08-14 00:00: 00 11-06 00:00 :00 No [id number] 20mg Take 1 tablet by mouth daily. [facility] escitalopra m oxalate 10 mg tablet 08-08 00:00: 00 08-14 00:00 :00 No [id number] 10mg Take 1 tablet by mouth 2 (two) times daily. [facility] calcipotrie ne-betameth asone 0.005-0.064 % ointment 08-07 00:00: 00 09-14 00:00 :00 No [id number] Apply to area(s) daily. [facility] ondansetron 4 mg tablet 01-30 00:00: 00 08-07 00:00 :00 No [id number] 4mg Take 1 tablet by mouth every 8 (eight) hours as needed for Nausea and Vomiting (N/V). [facility] triamcinolo ne 0.5 % ointment 01-30 00:00: 00 08-07 00:00 :00 No [id number] Apply to area(s) 2 (two) times daily. [facility] adalimumab (HUMIRA,CF, PEN PSOR-UV-ADO L HS) 80 mg/0.8 mL-40 mg/0.4 mL PnKt 2019- 7-10 00:00: 00 09-05 00:00 :00 No [facility] Immunizations Ordered Immunization Name Filled Immunization Name Date Status Comments Source Flu Injectable MDCK Pres-Free (FLUCELVAX) 2024-05-06 00:00:00 Completed [facility] TDAP 2020-08-07 00:00:00 Completed [facility] TDAP 2020-08-07 00:00:00 Completed [facility] TDAP 2020-08-07 00:00:00 Completed [facility] TDAP 2020-08-07 00:00:00 Completed [facility] TDAP 2020-08-07 00:00:00 Completed [facility] TDAP 2020-08-07 00:00:00 Completed [facility] TDAP 2020-08-07 00:00:00 Completed [facility] TDAP 2020-08-07 00:00:00 Completed [facility] TDAP 2020-08-07 00:00:00 Completed [facility] TDAP 2020-08-07 00:00:00 Completed [facility] TDAP 2020-08-07 00:00:00 Completed [facility] TDAP 2020-08-07 00:00:00 Completed [facility] TDAP 2020-08-07 00:00:00 Completed [facility] TDAP Unknown Completed [facility] TDAP Unknown Completed [facility] TDAP Unknown Completed [facility] TDAP Unknown Completed [facility] TDAP Unknown Completed [facility] TDAP Unknown Completed [facility] TDAP Unknown Completed [facility] TDAP Unknown Completed [facility] TDAP Unknown Completed [facility] TDAP Unknown Completed [facility] TDAP Unknown Completed [facility] TDAP Unknown Completed [facility] TDAP Unknown Completed [facility] TDAP Unknown Completed [facility] TDAP Unknown Completed [facility] TDAP Unknown Completed [facility] TDAP Unknown Completed [facility] TDAP Unknown Completed [facility] TDAP Unknown Completed [facility] TDAP Unknown Completed [facility] TDAP Unknown Completed [facility] TDAP Unknown Completed [facility] TDAP Unknown Completed [facility] TDAP Unknown Completed [facility] TDAP Unknown Completed [facility] TDAP Unknown Completed [facility] TDAP Unknown Completed [facility] TDAP Unknown Completed [facility] TDAP Unknown Completed [facility] TDAP Unknown Completed [facility] TDAP Unknown Completed [facility] TDAP Unknown Completed [facility] TDAP Unknown Completed [facility] TDAP Unknown Completed [facility] TDAP Unknown Completed [facility] TDAP Unknown Completed [facility] Vital Signs Vital Name Observation Time Observation Value Comments S ource Systolic blood pressure 2024-05-06 14:16:00 116 mm[Hg] [facility] Diastolic blood pressure 2024-05-06 14:16:00 75 mm[Hg] [facility] Heart rate 2024-05-06 14:16:00 90 /min [facility] Body temperature 2024-05-06 14:16:00 36.72 Marivel [facility] Respiratory rate 2024-05-06 14:16:00 18 /min [facility] Body height 2024-05-06 14:16:00 157.5 cm [facility] Body weight 2024-05-06 14:16:00 71.079 kg [facility] BMI 2024-05-06 14:16:00 28.66 kg/m2 [facility] Oxygen saturation in Arterial blood by Pulse oximetry 2024-05-06 14:16:00 99 /min [facility] Systolic blood pressure 2023-06-10 20:06:00 137 mm[Hg] [facility] Diastolic blood pressure 2023-06-10 20:06:00 80 mm[Hg] [facility] Heart rate 2023-06-10 20:06:00 107 /min [facility] Body temperature 2023-06-10 20:06:00 36.78 Marivel [facility] Respiratory rate 2023-06-10 20:06:00 18 /min [facility] Body height 2023-06-10 20:06:00 157.5 cm [facility] Body weight 2023-06-10 20:06:00 83.915 kg [facility] BMI 2023-06-10 20:06:00 33.84 kg/m2 [facility] Oxygen saturation in Arterial blood by Pulse oximetry 2023-06-10 20:06:00 100 /min [facility] Heart rate 2023-05-28 17:58:00 88 /min [facility] Respiratory rate 2023-05-28 17:58:00 16 /min [facility] Oxygen saturation in Arterial blood by Pulse oximetry 2023-05-28 17:58:00 99 /min [facility] Systolic blood pressure 2023-05-28 16:41:00 138 mm[Hg] [facility] Diastolic blood pressure 2023-05-28 16:41:00 82 mm[Hg] [facility] Body temperature 2023-05-28 16:41:00 36.61 Marivel [facility] Body height 2023-05-28 16:41:00 157.5 cm [facility] Body weight 2023-05-28 16:41:00 83.915 kg [facility] BMI 2023-05-28 16:41:00 33.84 kg/m2 [facility] Systolic blood pressure 2022-05-13 15:38:00 116 mm[Hg] [facility] Diastolic blood pressure 2022-05-13 15:38:00 78 mm[Hg] [facility] Heart rate 2022-05-13 15:38:00 86 /min [facility] Body height 2022-05-13 15:38:00 157.5 cm Univ [facility] Body weight 2022-05-13 15:38:00 79.833 kg [facility] BMI 2022-05-13 15:38:00 32.19 kg/m2 [facility] Oxygen saturation in Arterial blood by Pulse oximetry 2022-05-13 15:38:00 100 /min [facility] Systolic blood pressure 2022-04-18 21:49:00 138 mm[Hg] [facility] Diastolic blood pressure 2022-04-18 21:49:00 75 mm[Hg] [facility] Heart rate 2022-04-18 21:49:00 99 /min [facility] Body temperature 2022-04-18 21:49:00 37.44 Marivel [facility] Respiratory rate 2022-04-18 21:49:00 18 /min [facility] Body height 2022-04-18 21:49:00 157.5 cm [facility] Body weight 2022-04-18 21:49:00 68.04 kg [facility] BMI 2022-04-18 21:49:00 27.44 kg/m2 [facility] Oxygen saturation in Arterial blood by Pulse oximetry 2022-04-18 21:49:00 98 /min [facility] Systolic blood pressure 2021-12-27 20:58:00 136 mm[Hg] [facility] Diastolic blood pressure 2021-12-27 20:58:00 82 mm[Hg] [facility] Heart rate 2021-12-27 20:58:00 94 /min [facility] 2021-12-27 20:58:00 157.5 cm [facility] Body weight 2021-12-27 20:58:00 74.844 kg [facility] BMI 2021-12-27 20:58:00 30.18 kg/m2 [facility] Oxygen saturation in Arterial blood by Pulse oximetry 2021-12-27 20:58:00 98 /min [facility] Systolic blood pressure 2022-05-13 15:38:00 116 mm[Hg] [facility] Diastolic blood pressure 2022-05-13 15:38:00 78 mm[Hg] [facility] Heart rate 2022-05-13 15:38:00 86 /min [facility] Body height 2022-05-13 15:38:00 157.5 cm [facility] Body weight 2022-05-13 15:38:00 79.833 kg [facility] BMI 2022-05-13 15:38:00 32.19 kg/m2 [facility] Oxygen saturation in Arterial blood by Pulse oximetry 2022-05-13 15:38:00 100 /min [place] [facility] Body temperature 2022-04-18 21:49:00 37.44 Marivel [facility] Respiratory rate 2022-04-18 21:49:00 18 /min [facility] Procedures Procedure Date / Time Performed Performing Clinician Source FLU VACC (), 6 MO-64 YRS, .5ML, IM, TIV (FLUCELVAX) 2024-05-06 15:18:54 Kourtney Fisher [facility] ASSIGNMENT OF BENEFITS 2023-06-10 21:13:27 Docto r Unassigned, [place] [facility] ASSIGNMENT OF BENEFITS 2023-05-28 18:11:05 Docto r Unassigned, [place] [facility] CONSENT/REFUSAL FOR DIAGNOSIS AND TREATMENT 2023-05-28 16:36:50 Doctor Unassigned, [place] [facility] RAPID INFLUENZA A/B 2022-04-18 22:26:00 Eloisa Arreola [facility] COVID-19 (ID NOW RAPID TESTING) 2022-04-18 22:26:00 Edwin Arreola [facility] XR CHEST 1 VW 2022-04-18 22:20:12 Edwin Arreola [facility] CONSENT/REFUSAL FOR DIAGNOSIS AND TREATMENT 2022-04-18 21:44:26 Doctor Unassigned, [place] [facility] REFERRAL- REQUEST/RESPONSE 2022-03-19 05:01:00 Doctor Unassigned, [place] [facility] AUTHORIZATION FOR RELEASE OF PHI 2022-02-07 05:01:00 Doctor Unassigned, [place] [facility] Encounters Start Date/Time End Date/Time Encounter Type Admission Type Attending [facility] Facility Care Department Encounter ID Source 2021-03-25 12:09:29 Emergency [facility] [id number] [facility] 2024-06-17 14:00:00 2024-06-17 14:00:00 Outpatient R ROSLYN BENITO, ROSLYN [facility] [id number] [facility] 2024-05-23 15:00:00 2024-05-23 15:00:00 Outpatient R HAMMONDS, FAKEHA HAMMONDS, FAKEHA [facility] [id number] [facility] 2024-05-20 00:00:00 2024-05-20 10:14:35 Telephone Kourtney Fisher [facility] 1.2.840.114 350.1.13.10 4.2.7.2.686 [id number] [facility] 2024-05-13 15:00:00 2024-05-13 15:00:00 Outpatient R HAMMONDS, FAKEHA HAMMONDS, FAKEHA [facility] [id number] [facility] 2024-05-10 08:00:00 2024-05-10 08:00:00 Outpatient R HAMMONDS, FAKEHA HAMMONDS, FAKEHA [facility] [id number] [facility] 2024-05-09 13:40:00 2024-05-09 13:40:00 Outpatient R HAMMONDS, FAKEHA HAMMONDS, FAKEHA [facility] [id number] [facility] 2024-05-09 00:00:00 2024-05-09 11:43:11 Patient Secure Msg Doctor Unassigned, [place] Doctor Unassigned, [place] [facility] 1.2.840.114 350.1.13.10 4.2.7.2.686 [id number] [facility] 2024-05-06 08:00:00 2024-05-06 08:51:58 Outpatient R KOURTNEY FISHER [facility] [id number] [facility] 2024-05-06 08:00:00 2024-05-06 08:51:58 Office Visit Kourtney Fisher [facility] 1.2.840.114 350.1.13.10 4.2.7.2.686 [id number] [facility] 2024-05-03 00:00:00 2024-05-05 10:20:41 Telephone [facility] 1.2.840.114 350.1.13.10 4.2.7.2.686 [id number] [facility] 2024-04-29 00:00:00 2024-04-29 00:00:00 Outpatient NICOLAS GONSALEZ [id number] [facility] 2024-03-26 00:00:00 2024-03-28 14:20:30 [facility] 1.2.840.114 350.1.13.10 4.2.7.2.686 [id number] [facility] 2024-03-02 00:00:00 2024-03-03 09:22:53 Patient Secure Ms Maru Rader [facility] 1.2.840.114 350.1.13.10 4.2.7.2.686 [id number] [facility] 2024-03-02 17:00:00 2024-03-02 17:00:00 Outpatient NICOLAS GONSALEZ [id number] [facility] 2024-02-12 14:00:00 2024-02-12 14:00:00 Outpatient KAITLIN ORTIZ [id number] [facility] 2024-01-26 16:00:00 2024-01-26 16:00:00 Outpatient KATARINA ZENG [facility] [id number] [facility] 2024-01-26 00:00:00 2024-01-26 00:00:00 Outpatient MD ROSEMARY MADDEN [id number] [facility] 2024-01-26 00:00:00 2024-01-26 00:00:00 Outpatient MD ROSEMARY MADDEN [id number] [facility] 2024-01-24 00:00:00 2024-01-24 00:00:00 Outpatient MD ROSEMARY MADDEN [id number] [facility] 2024-01-24 00:00:00 2024-01-24 00:00:00 Outpatient BETANCOURTVASILE CAGE [id number] [facility] 2024-01-24 00:00:00 2024-01-24 00:00:00 Outpatient KEYURFARZAD ROSEMARY NICHOLSON [id number] [facility] 2024-01-23 00:00:00 2024-01-23 00:00:00 Outpatient BETANCOURT, VASILE NICHOLSON [id number] [facility] 2024-01-21 00:00:00 2024-01-21 00:00:00 Outpatient BETANCOURT, VASILE NICHOLSON [id number] [facility] 2024-01-06 00:00:00 2024-01-06 00:00:00 Outpatient BETANCOURT, VASILE NICHOLSON [id number] [facility] 2023-12-31 13:30:00 2023-12-31 13:30:00 Outpatient [facility]ERR[facility] [id number] [facility] 2023-12-29 10:15:00 2023-12-29 10:15:00 Outpatient BETANCOURT, VASILE NICHOLSON [id number] [facility] 2023-12-28 00:00:00 2023-12-28 00:00:00 Outpatient BETANCOURT, VASILE NICHOLSON [id number] [facility] 2023-12-21 08:00:00 2023-12-21 08:00:00 Outpatient Kristen MCGOWANKAITLIN GARCIA [facility] [id number] [facility] 2023-12-21 00:00:00 2023-12-21 00:00:00 Outpatient BETANCOURT, VASILE NICHOLSON [id number] [facility] 2023-12-16 00:00:00 2023-12-16 00:00:00 Outpatient BETANCOURT, VASILE NICHOLSON [id number] [facility] 2023-12-15 00:00:00 2023-12-15 00:00:00 Outpatient BETANCOURT, VASILE NICHOLSON [id number] [facility] 2023-12-15 00:00:00 2023-12-15 00:00:00 Outpatient BETANCOURT, VASILE NICHOLSON [id number] [facility] 2023-12-15 00:00:00 2023-12-15 00:00:00 Outpatient BETANCOURT, VASILE NICHOLSON [id number] [facility] 2023-12-11 00:00:00 2023-12-11 00:00:00 Outpatient BETANCOURT, VASILE NICHOLSON [id number] [facility] 2023-12-09 15:00:00 2023-12-09 15:00:00 Outpatient KAITLIN ORTIZ [id number] [facility] 2023-12-08 10:45:00 2023-12-08 10:45:00 Outpatient MARIYA ALBERTO [id number] [facility] 2023-12-07 11:00:00 2023-12-07 11:00:00 Outpatient FARZAD BAER [id number] [facility] 2023-12-06 00:00:00 2023-12-06 00:00:00 Outpatient BETANCOURT, VASILE NICHOLSON [id number] [facility] 2023-11-21 00:00:00 2023-11-21 00:00:00 Outpatient BETANCOURT, VASILE STEELEADEEL NICHOLSON [id number] [facility] 2023-11-19 00:00:00 2023-11-19 00:00:00 Outpatient BETANCOURT, VASILE ROSEMARY NICHOLSON [id number] [facility] 2023-11-19 00:00:00 2023-11-19 00:00:00 Outpatient BETANCOURT, VASILENicolette NICHOLSON [id number] [facility] 2023-11-17 14:45:00 2023-11-17 14:45:00 Outpatient BETANCOURT, VASILENicolette NICHOLSON [id number] [facility] 2023-11-17 00:00:00 2023-11-17 00:00:00 Outpatient BETANCOURT, VASILETI NICHOLSON [id number] [facility] 2023-11-17 00:00:00 2023-11-17 00:00:00 Outpatient BETANCOURT, VASILETI NICHOLSON [id number] [facility] 2023-11-17 00:00:00 2023-11-17 00:00:00 Outpatient SERAFIN, VASILE ROSEMARY NICHOLSON [id number] [facility] 2023-11-17 00:00:00 2023-11-17 00:00:00 Outpatient IRINA CUELLAR [id number] [facility] 2023-11-06 13:45:00 2023-11-06 13:45:00 Outpatient BARBARA WINTERS [id number] [facility] 2023-10-15 00:00:00 2023-10-21 08:57:01 [facility] 1.2.840.114 350.1.13.10 4.2.7.2.686 [id number] [facility] 2023-08-31 10:20:00 2023-08-31 10:20:00 Outpatient R [facility] [id number] [facility] 2023-07-03 00:00:00 2023-07-03 00:00:00 [facility] 1.84114 350.1.13.10 4.2.7.2.686 [id number] [facility] 2023-07-03 00:00:00 2023-07-03 00:00:00 Refill Pcp, Patient [facility] Not Have [facility] 1..114 350.1.13.10 4.2.7.2.686 [id number] [facility] 2023-06-29 15:00:00 2023-06-29 15:00:00 Outpatient R [facility] [id number] [facility] 2023-06-18 00:00:00 2023-06-18 00:00:00 Patient Secure Msg Doctor Unassigned, [place] [facility] 1.114 350.1.13.10 4.2.7.2.686 [id number] [facility] 2023-06-17 14:13:30 2023-06-17 14:13:30 Outpatient SFA [facility] [id number] Sher Yeh 2023-06-16 08:00:00 2023-06-16 08:00:00 Outpatient R LINDA KAITLIN [facility] [id number] [facility] 2023-06-15 00:00:00 2023-06-15 00:00:00 Refill Sav Lundberg [facility] 1.84114 350.1.13.10 4.2.7.2.686 [id number] [facility] 2023-06-14 00:00:00 2023-06-14 00:00:00 Refill Kaitlin Mckeon [facility] 1..114 350.1.13.10 4.2.7.2.686 [id number] [facility] 2023-06-14 00:00:00 2023-06-14 00:00:00 Ngozi Andrew [facility] 1.840.114 350.1.13.10 4.2.7.2.686 [id number] [facility] 2023-06-10 14:07:00 2023-06-10 15:26:00 Emergency X MONIQUENADIA NADIA [facility] E[facility] [id number] [facility] 2023-06-10 14:07:00 2023-06-10 15:26:00 Emergency Monique Nadia [facility] 1.840.114 350.1.13.10 4.2.7.2.686 [id number] [facility] 2023-05-28 10:42:00 2023-05-28 12:26:00 Emergency X SUSI MORENO [facility] ERT [id number] [facility] 2023-05-28 10:42:00 2023-05-28 12:26:00 Emergency Susi Moreno [facility] 1..840.114 350.1.13.10 4.2.7.2.686 [id number] [facility] 2022-08-19 00:00:00 2022-08-19 00:00:00 Patient Secure Msg Doctor Unassigned, [place] [facility] 1.2840.114 350.1.13.10 4.2.7.2.686 [id number] [facility] 2022-06-27 10:00:00 2022-06-27 10:00:00 Outpatient R [facility] [id number] [facility] 2022-06-13 08:00:00 2022-06-13 08:00:00 Outpatient R YESENIA GRUBBS [facility] [id number] [facility] 2022-05-23 10:30:00 2022-05-23 10:30:00 Outpatient KAITLIN NAVA [facility] [id number] [facility] 2022-05-14 09:00:00 2022-05-14 09:00:00 Outpatient R [facility] [id number] [facility] 2022-05-13 09:30:00 2022-05-13 10:08:57 Outpatient R SHIRA GRUBBSSSICA [facility] [id number] [facility] 2022-05-13 09:30:00 2022-05-13 10:08:57 [facility] 1..840.114 350.1.13.10 4.2.7.2.686 [id number] [facility] 2022-05-01 00:00:00 2022-05-01 00:00:00 Telephone Donnell Hale [facility] 1.840.114 350.1.13.10 4.2.7.2.686 [id number] [facility] 2022-04-29 11:30:00 2022-04-29 11:30:00 Outpatient KAITLIN NAVA [facility] [id number] [facility] 2022-04-29 00:00:00 2022-04-29 00:00:00 Patient Secure Msg Denzel Danielle [facility] 1.840.114 350.1.13.10 4.2.7.2.686 [id number] [facility] 2022-04-25 13:30:00 2022-04-25 13:30:00 Outpatient YESENIA SHARPE [facility] [id number] [facility] 2022-04-25 00:00:00 2022-04-25 00:00:00 Telephone Denzel Danielle [facility] 1.114 350.1.13.10 4.2.7.2.686 [id number] [facility] 2022-04-24 08:00:00 2022-04-24 08:00:00 Outpatient NGOZI ANTHONY [facility] [id number] [facility] 2022-04-23 00:00:00 2022-04-23 00:00:00 RefNgozi Valente [facility] 1.114 350.1.13.10 4.2.7.2.686 [id number] [facility] 2022-04-23 00:00:00 2022-04-23 00:00:00 Refill Doctor Unassigned, [place] [facility] 1.84.114 350.1.13.10 4.2.7.2.686 [id number] [facility] 2022-04-23 00:00:00 2022-04-23 00:00:00 Refill Lukas Romero [facility] 1.84.114 350.1.13.10 4.2.7.2.686 [id number] [facility] 2022-04-23 00:00:00 2022-04-23 00:00:00 Telephone Denzel Danielle [facility] 1..114 350.1.13.10 4.2.7.2.686 [id number] [facility] 2022-04-23 00:00:00 2022-04-23 00:00:00 Lukas Crawford [facility] 1.84.114 350.1.13.10 4.2.7.2.686 [id number] [facility] 2022-04-23 00:00:00 2022-04-23 00:00:00 Patient Secure Msg Doctor Unassigned, [place] [facility] 1.2.840.114 350.1.13.10 4.2.7.2.686 [id number] [facility] 2022-04-22 13:40:00 2022-04-22 13:40:00 Outpatient R YESENIA GRUBBS [facility] [id number] [facility] 2022-04-21 11:00:00 2022-04-21 11:00:00 Outpatient R [facility] [id number] [facility] 2022-04-21 00:00:00 2022-04-21 00:00:00 Patient Secure Msg Ramiro Balderas [facility] 1.2.840.114 350.1.13.10 4.2.7.2.686 [id number] [facility] 2022-04-18 15:49:00 2022-04-18 18:23:00 Emergency X EDWIN [facility] ERT [id number] [facility] 2022-04-18 15:49:00 2022-04-18 18:23:00 Emergency Edwin Arreola [facility] 1.2.840.114 350.1.13.10 4.2.7.2.686 [id number] [facility] 2022-04-01 09:45:40 2022-04-01 09:45:40 Outpatient [facility] [id number] Sher Yeh 2022-03-26 14:35:27 2022-03-26 14:35:27 Outpatient [facility] Sher Yeh 2022-03-20 10:12:36 2022-03-20 10:12:36 Outpatient [facility] Sher Yeh 2022-03-19 00:00:00 2022-03-19 00:00:00 Orders Only Doctor Unassigned, [place] [facility] 1.2.840.114 350.1.13.10 4.2.7.2.686 [id number] [facility] 2022-02-10 08:30:00 2022-02-10 08:30:00 Outpatient KAITLIN NAVA [facility] [id number] [facility] 2022-02-07 00:00:00 2022-02-07 00:00:00 Orders Only Doctor Unassigned, [place] [facility] 1.2.840.114 350.1.13.10 4.2.7.2.686 [id number] [facility] 2022-01-28 09:23:51 2022-01-28 23:59:00 Outpatient YESENIA SHARPE [facility] [id number] [facility] 2022-01-28 09:23:51 2022-01-28 23:59:00 Outpatient YESENIA SHARPE [facility] [id number] [facility] 2022-01-28 09:00:00 2022-01-28 23:59:00 Hospital Encounter Yesenia Grubbs [facility] 1.2.840.114 350.1.13.10 4.2.7.2.686 [id number] [facility] 2022-01-20 00:00:00 2022-01-20 00:00:00 Outpatient YESENIA SHARPE [facility] [id number] [facility] 2022-01-14 00:00:00 2022-01-14 00:00:00 Outpatient YESENIA SHARPE [facility] [id number] [facility] 2022-01-13 10:30:00 2022-01-13 10:30:00 Outpatient KAITLIN NAVA [facility] [id number] [facility] 2022-01-10 11:30:00 2022-01-10 11:30:00 Outpatient KAITLIN NAVA [facility] [id number] [facility] 2022-01-09 13:30:00 2022-01-09 13:30:00 Outpatient KAITLIN NAVA [facility] [id number] [facility] 2022-01-02 08:45:00 2022-01-02 08:45:00 Outpatient NGOZI ANTHONY [facility] [id number] [facility] 2021-12-30 10:30:00 2021-12-30 10:30:00 Outpatient MONICA TENORIO [facility] [id number] [facility] 2021-12-27 15:40:00 2021-12-27 16:44:52 [facility] 1.2.840.114 350.1.13.10 4.2.7.2.686 [id number] [facility] 2021-12-27 15:40:00 2021-12-27 16:44:52 Outpatient BRANDON SAGASTUME HOWARD [facility] [id number] [facility] 2021-12-27 15:40:00 2021-12-27 15:40:00 Outpatient BRANDON SAGASTUME HOWARD [facility] [id number] [facility] 2021-12-16 13:45:00 2021-12-16 13:45:00 Outpatient NGOZI ANTHONY [facility] [id number] [facility] 2021-12-09 00:00:00 2021-12-09 00:00:00 Outpatient TUTU CABRERA [facility] [id number] [facility] 2021-12-05 08:15:00 2021-12-05 08:15:00 Outpatient NGOZI ANTHONY [facility] [id number] [facility] 2021-12-05 00:00:00 2021-12-05 00:00:00 Ngozi Andrew [facility] 1.114 350.1.13.10 4.2.7.2.686 [id number] [facility] 2021-12-03 11:30:00 2021-12-03 11:30:00 Outpatient R BAMBI MONICA [facility] [id number] [facility] 2021-12-02 11:00:00 2021-12-02 11:00:00 Outpatient R [facility] [id number] [facility] 2021-12-02 00:00:00 2021-12-02 00:00:00 Patient Secure Msg Rosalie Roy [facility] OFF[facility] 1.84.114 350.1.13.10 4.2.7.2.686 [id number] [facility] 2021-11-30 00:00:00 2021-11-30 00:00:00 Sav Phan [facility] MED[facility] OFFICE BUILD[facility] 1.84114 350.1.13.10 4.2.7.2.686 [id number] [id number] [facility] 2021-11-30 00:00:00 2021-11-30 00:00:00 Patient Secure Msg Doctor Unassigned, [place] [facility] 1.114 350.1.13.10 4.2.7.2.686 [id number] [facility] 2021-11-26 00:00:00 2021-11-26 00:00:00 Patient Secure Msg Kaitlin Mckeon [facility] MEDICAL OFFICE BUILDING 1.84114 350.1.13.10 4.2.7.2.686 [id number] [facility] 2021-11-11 00:00:00 2021-11-11 00:00:00 Patient Secure Msg Rosalie Roy M [facility] MED[facility] OFF[facility] BUILD[facility] 1.114 350.1.13.10 4.2.7.2.686 [id number] [id number] [facility] 2021-11-11 00:00:00 2021-11-11 00:00:00 Patient Secure Kaitlin Rolon [facility] MEDICAL OFFICE BUILDING 1..114 350.1.13.10 4.2.7.2.686 [id number] [id number] [facility] 2021-11-05 00:00:00 2021-11-05 00:00:00 Patient Secure Jayleen Rolonthia [facility] AC?[facility] MEDICAL OFFICE BUILDING 1.114 350.1.13.10 4.2.7.2.686 [id number] [id number] [facility] 2021-10-29 08:00:00 2021-10-29 08:00:00 Outpatient JAY VALDIVIA [facility] [id number] [facility] 2021-10-28 00:00:00 2021-10-28 00:00:00 Ngozi Andrew [facility]PEC [facility] 1.114 350.1.13.10 4.2.7.2.686 [id number] [facility] 2021-10-28 00:00:00 2021-10-28 00:00:00 [facility] 1.114 350.1.13.10 4.2.7.2.686 [id number] [facility] 2021-10-20 00:00:00 2021-10-20 00:00:00 Ngozi Andrew [facility] 1.2.840.114 350.1.13.10 4.2.7.2.686 [id number] [facility] 2021-10-20 00:00:00 2021-10-20 00:00:00 Kaitlin Burton [facility] 1.840.114 350.1.13.10 4.2.7.2.686 [id number] [facility] 2021-10-20 00:00:00 2021-10-20 00:00:00 Dionicio Romero [facility] 1.114 350.1.13.10 4.2.7.2.686 [id number] [facility] 2021-10-18 00:00:00 2021-10-18 00:00:00 Outpatient R THONG [facility] [id number] [facility] 2021-10-15 11:00:00 2021-10-15 11:00:00 Outpatient R THONG [facility] [id number] [facility] 2021-10-15 11:00:00 2021-10-15 11:00:00 Outpatient Kristen BENITO [facility] [id number] [facility] 2021-10-11 00:00:00 2021-10-11 00:00:00 Orders Only Doctor Unassigned, [place] [facility] 1.0.114 350.1.13.10 4.2.7.2.686 [id number] [facility] 2021-10-08 09:10:48 2021-10-08 23:59:00 Hospital Encounter Ngozi Torres [facility] 1..114 350.1.13.10 4.2.7.2.686 [id number] [facility] 2021-10-08 09:10:18 2021-10-08 23:59:00 Hospital Encounter BrianNgozi [facility] 1.2.840.114 350.1.13.10 4.2.7.2.686 [id number] [facility] 2021-10-08 10:45:00 2021-10-08 11:00:00 Plastering Supervisor Visit Lab, Familia TorresNgozi Tressa [facility] 1.2.840.114 350.1.13.10 4.2.7.2.686 [id number] [facility] 2021-10-08 09:40:00 2021-10-08 09:40:00 Outpatient R AUBREY FARRAR [facility] [id number] [facility] 2021-10-08 09:07:31 2021-10-08 09:09:00 Hospital Encounter BrianNgozi [facility] 1.2.840.114 350.1.13.10 4.2.7.2.686 [id number] [facility] 2021-10-08 09:07:31 2021-10-08 09:07:31 Outpatient NGOZI ANTHONY [facility] [id number] [facility] 2021-10-08 00:00:00 2021-10-08 00:00:00 Patient Secure Ngozi Benedict [facility] 1.2.840.114 350.1.13.10 4.2.7.2.686 [id number] [facility] 2021-10-08 00:00:00 2021-10-08 00:00:00 Patient Secure Ngozi Torres [facility] 1.2.840.114 350.1.13.10 4.2.7.2.686 [id number] 086 [id number] [facility] 2021-10-08 00:00:00 2021-10-08 00:00:00 Patient Secure Ngozi Benedict [facility] 1..114 350.1.13.10 4.2.7.2.686 [id number] [facility] 2021-10-02 00:00:00 2021-10-02 00:00:00 Orders Only Doctor Unassigned, [place] [facility] 1.20.114 350.1.13.10 4.2.7.2.686 [id number] [facility] 2021-09-27 00:00:00 2021-09-27 00:00:00 [facility] OFF[facility]ILD[facility] 1..114 350.1.13.10 4.2.7.2.686 [id number] [facility] 2021-09-25 00:00:00 2021-09-25 00:00:00 Refill [facility] MED[facility] OFF[facility] BUILD[facility] 1.2.114 350.1.13.10 4.2.7.2.686 [id number] 044 [id number] [facility] 2021-09-25 00:00:00 2021-09-25 00:00:00 Telephone [facility] OFF[facility] BUILD[facility] 1.20.114 350.1.13.10 4.2.7.2.686 [id number] [facility] 2021-09-25 00:00:00 2021-09-25 00:00:00 Lukas Crawford [facility] 1.2.114 350.1.13.10 4.2.7.2.686 [id number] [facility] 2021-09-23 00:00:00 2021-09-23 00:00:00 Patient Secure Msg Doctor Unassigned, [place] [facility] 1.2.840.114 350.1.13.10 4.2.7.2.686 [id number] [facility] 2021-09-18 00:00:00 2021-09-18 00:00:00 Patient Secure Msg Doctor Unassigned, [place] [facility] 1.2.840.114 350.1.13.10 4.2.7.2.686 [id number] [facility] 2021-09-09 00:00:00 2021-09-09 00:00:00 [facility] 1.2.840.114 350.1.13.10 4.2.7.2.686 [id number] [facility] 2021-09-09 00:00:00 2021-09-09 00:00:00 Telephone Reese [facility] ([facility]) 1.2.840.114 350.1.13.10 4.2.7.2.686 [id number] [facility] 2021-09-09 00:00:00 2021-09-09 00:00:00 Patient Secure Msg Doctor Unassigned, [place] [facility] 1.2840.114 350.1.13.10 4.2.7.2.686 [id number] [facility] 2021-09-06 00:00:00 2021-09-06 00:00:00 Patient Secure Msg Doctor Unassigned, [place] [facility] OFF[facility] BUILD[facility] 1.2840.114 350.1.13.10 4.2.7.2.686 [id number] [facility] 2021-09-05 10:15:00 2021-09-05 11:05:53 Office Visit Ngozi Torres [facility] 1.20.114 350.1.13.10 4.2.7.2.686 [id number] [facility] 2021-09-05 10:15:00 2021-09-05 11:05:53 Outpatient NGOZI ANTHONY [facility] [id number] [facility] 2021-09-05 10:15:00 2021-09-05 10:15:00 Outpatient NGOZI ANTHONY [facility] [id number] [facility] 2021-09-05 10:15:00 2021-09-05 10:15:00 Outpatient NGOZI ANTHONY [facility] [id number] [facility] 2021-09-03 00:00:00 2021-09-03 00:00[facility] 1.2840.114 350.1.13.10 4.2.7.2.686 [id number] [facility] 2021-09-03 00:00:00 2021-09-03 00:00:00 Patient Secure Msg [facility] 1.2.840.114 350.1.13.10 4.2.7.2.686 [id number] [facility] 2021-09-03 00:00:00 2021-09-03 00:00:00 Patient Secure Msg [facility] 1.2.840.114 350.1.13.10 4.2.7.2.686 [id number] [facility] 2021-09-02 14:30:00 2021-09-02 14:30:00 Plastering Supervisor Visit [facility] Denzel Danielle [facility] 1.20.114 350.1.13.10 4.2.7.2.686 [id number] [facility] 2021-09-02 14:00:00 2021-09-02 14:13:44 Outpatient R DENZEL DANIELLE BRENT [facility] [id number] [facility] 2021-09-02 14:00:00 2021-09-02 14:13:44 Office Visit Lukas Romero Brent C [facility] 1.114 350.1.13.10 4.2.7.2.686 [id number] [facility] 2021-09-02 14:00:00 2021-09-02 14:13:44 Outpatient R DENZEL DANIELLE BRENT [facility] [id number] [facility] 2021-09-02 14:00:00 2021-09-02 14:13:44 Office Visit Lukas Romero Brent C [facility] 1.114 350.1.13.10 4.2.7.2.686 [id number] [facility] 2021-08-30 00:00:00 2021-08-30 00:00:00 Patient Secure Msg Linda [facility] MED[facility] OFFICE BUILDING 1.114 350.1.13.10 4.2.7.2.686 [id number] 044 [id number] [facility] 2021-08-23 00:00:00 2021-08-23 00:00:00 Telephone Linda [facility] MEDICAL OFFICE BUILDING 1.114 350.1.13.10 4.2.7.2.686 [id number] 044 [id number] [facility] 2021-08-22 00:00:00 2021-08-22 00:00:00 Patient Secure Msg Doctor Unassigned, [place] [facility] 1.114 350.1.13.10 4.2.7.2.686 [id number] [facility] 2021-08-15 14:00:00 2021-08-15 14:00:00 Outpatient R KAITLIN MCKEON [facility] [id number] [facility] 2021-08-15 14:00:00 2021-08-15 14:00:00 Outpatient R KAITLIN MCKEON [facility] [id number] [facility] 2021-08-13 00:00:00 2021-08-13 00:00:00 Patient Secure Msg [facility] MEDICAL OFFICE BUILDING 1..840.114 350.1.13.10 4.2.7.2.686 [id number] [facility] 2021-08-12 16:45:00 2021-08-12 17:27:51 Plastering Supervisor Visit Lab, [facility] MEDICAL OFFICE BUILDING 1..840.114 350.1.13.10 4.2.7.2.686 [id number] [facility] 2021-08-12 16:45:00 2021-08-12 17:00:00 Plastering Supervisor Visit Lab, [facility] Health[facility]IM[facility] MEDICAL OFFICE BUILDING 1..840.114 350.1.13.10 4.2.7.2.686 [id number] [facility] 2021-08-12 15:30:00 2021-08-12 16:50:49 Outpatient R KAITLIN MCKEON [facility] [id number] [facility] 2021-08-12 15:30:00 2021-08-12 16:50:49 [facility] MEDICAL OFFICE BUILDING 1..840.114 350.1.13.10 4.2.7.2.686 [id number] 044 [id number] [facility] 2021-08-12 15:30:00 2021-08-12 16:50:49 Office Visit [facility] MED[facility] OFF[facility] BUILDING 1..840.114 350.1.13.10 4.2.7.2.686 [id number] [id number] [facility] 2021-08-12 15:30:00 2021-08-12 16:50:49 [facility] [id number] [facility] 2021-08-12 15:30:00 2021-08-12 16:50:49 Office Visit Jayleen [facility]on[facility] MEDICAL OFFICE BUILDING 1..840.114 350.1.13.10 4.2.7.2.686 [id number] 044 [id number] [facility] 2021-08-12 00:00:00 2021-08-12 00:00:00 Patient Secure Msg Edgar Garcia [facility] MULTISPEC [facility]TY C[facility] AND [facility] 1.840.114 350.1.13.10 4.2.7.2.686 [id number] [facility] 2021-08-12 00:00:00 2021-08-12 00:00:00 Patient Secure Msg Edgar Garcia [facility] MULT[facility]PEC [facility]TY C[facility] AND [facility] 1.84.114 350.1.13.10 4.2.7.2.686 [id number] 086 [id number] [facility] 2021-08-12 00:00:00 2021-08-12 00:00:00 Patient Secure Msg Greg Edgar B [facility] MULTISPEC [facility]TY C[facility] 1.84.114 350.1.13.10 4.2.7.2.686 [id number] [facility] 2021-08-12 00:00:00 2021-08-12 00:00:00 Patient Secure Msg Fred Munguia [facility] 1.0.114 350.1.13.10 4.2.7.2.686 [id number] [facility] 2021-08-10 00:00:00 2021-08-10 00:00:00 Refyan Mckeon [facility] OFFICE BUILDING ONE 1.0.114 350.1.13.10 4.2.7.2.686 [id number] [id number] [facility] 2021-08-10 00:00:00 2021-08-10 00:00:00 Dionicio Mckeon [facility] OFFICE BUILDING ONE 1..114 350.1.13.10 4.2.7.2.686 [id number] [facility] 2021-08-01 00:00:00 2021-08-01 00:00:00 Orders Only Doctor Unassigned, [place] [facility] 1.0.114 350.1.13.10 4.2.7.2.686 [id number] [facility] 2021-06-25 00:00:00 2021-06-25 00:00:00 Patient Secure Msg Roslyn Benito [facility] BU[facility] 1..114 350.1.13.10 4.2.7.2.686 [id number] [facility] 2021-06-19 13:20:17 2021-06-19 23:59:00 Outpatient R ROSLYN BENITO [facility] [id number] [facility] 2021-06-19 13:20:17 2021-06-19 23:59:00 Hospital Encounter Roslyn Benito [facility] 1.0.114 350.1.13.10 4.2.7.2.686 [id number] [facility] 2021-06-19 13:20:05 2021-06-19 23:59:00 Hospital Encounter Kaitlin Mckeon [facility] 1.2.840.114 350.1.13.10 4.2.7.2.686 [id number] [facility] 2021-05-28 00:00:00 2021-05-28 00:00:00 Patient Secure Msg Doctor Unassigned, [place] [facility] 1.2.840.114 350.1.13.10 4.2.7.2.686 [id number] [facility] 2021-05-21 11:00:00 2021-05-21 11:00:00 Outpatient R [facility] [id number] [facility] 2021-05-21 11:00:00 2021-05-21 11:00:00 Outpatient R [facility] [id number] [facility] 2021-05-20 13:30:00 2021-05-20 14:50:11 Outpatient R KAITLIN MCKEON [facility] [id number] [facility] 2021-05-20 13:30:00 2021-05-20 14:50:11 Office [facility]ILD[facility] 1..840.114 350.1.13.10 4.2.7.2.686 [id number] [facility] 2021-05-20 13:30:00 2021-05-20 14:50:11 Outpatient R KAITLIN MCKEON [facility] [id number] [facility] 2021-05-20 13:30:00 2021-05-20 14:50:11 Outpatient R KAITLIN MCKEON [facility] [id number] [facility] 2021-05-14 00:00:00 2021-05-14 00:00:00 Patient Secure Msg [facility] 1.2.840.114 350.1.13.10 4.2.7.2.686 [id number] [facility] 2021-04-12 11:00:00 2021-04-12 11:00:00 Outpatient R KAITLIN MCKEON [facility] [id number] [facility] 2021-04-12 11:00:00 2021-04-12 11:00:00 Outpatient R [facility] [id number] [facility] 2021-04-12 00:00:00 2021-04-12 00:00:00 [facility] OFFICE BUILDING ONE 1..840.114 350.1.13.10 4.2.7.2.686 [id number] [facility] 2021-04-12 00:00:00 2021-04-12 00:00:00 Patient Secure Msg [facility] 1.2840.114 350.1.13.10 4.2.7.2.686 [id number] [facility] 2021-04-08 00:00:00 2021-04-08 00:00:00 Patient Secure Msg [facility] 1.2.840.114 350.1.13.10 4.2.7.2.686 [id number] [facility] 2021-04-08 00:00:00 2021-04-08 00:00:00 Orders Only Doctor Unassigned, [place] [facility] 1.2840.114 350.1.13.10 4.2.7.2.686 [id number] [facility] 2021-04-03 00:00:00 2021-04-03 00:00:00 Jayleen BurtonFormerly [facility] MEDICAL OFFICE BUILDING 1.2.840.114 350.1.13.10 4.2.7.2.686 [id number] [facility] 2021-04-01 00:00:00 2021-04-01 00:00:00 Jayleen BurtonFormerly [facility] MEDICAL OFFICE BUILDING 1.2.840.114 350.1.13.10 4.2.7.2.686 [id number] [facility] 2021-03-26 09:30:00 2021-03-26 09:30:00 [facility]patient [facility] [id number] [facility] 2021-03-26 09:30:00 2021-03-26 09:30:00 Outpatient Kristen MCGOWANKAITLIN GARCIA [facility] [id number] [facility] 2021-03-21 02:23:00 2021-03-21 05:18:00 Emergency X MICHAEL PARKER [facility]AK[facility]I [facility] ERT [id number] [facility] 2021-03-21 02:23:00 2021-03-21 05:18:00 Emergency Michael Parker [facility] .2.840.114 350.1.13.10 4.2.7.2.686 [id number] [facility] 2021-03-21 02:23:00 2021-03-21 05:18:00 Emergency X MICHAEL PARKER [facility] ERT [id number] [facility] 2021-03-12 16:30:00 2021-03-12 16:30:00 Outpatient [facility] [id number] [facility] 2021-03-12 16:30:00 2021-03-12 16:30:00 Outpatient R KAITLIN MCKEON [facility] [id number] [facility] 2021-03-11 14:30:00 2021-03-11 14:30:00 Outpatient R KAITLIN MCKEON [facility] [id number] [facility] 2021-03-04 00:00:00 2021-03-04 00:00:00 Refill JanetRochelleIrina [facility] Medical Office Building [id number] 350.1.13.10 4.2.7.2.686 [id number] [facility] 2021-03-04 00:00:00 2021-03-04 00:00:00 Patient Secure [facility] [id number] 350.1.13.10 4.2.7.2.686 [id number] [facility] 2021-03-04 00:00:00 2021-03-04 00:00:00 Patient Secure M[facility] Office Building [id number] 350.1.13.10 4.2.7.2.686 [id number] [facility] 2021-02-25 15:00:00 2021-02-25 15:00:00 Outpatient FERNANDO CASPER [facility] [id number] [facility] 2021-02-25 14:20:00 2021-02-25 14:20:00 Outpatient EDGAR JORGE [facility] [id number] [facility] 2021-02-25 14:20:00 2021-02-25 14:20:00 Outpatient EDGAR JORGE [facility] [id number] [facility] 2021-02-12 00:00:00 2021-02-12 00:00:00 Patient Secure Msg Doctor Unassigned, [place] [facility] 1.114 350.1.13.10 4.2.7.2.686 [id number] [facility] 2021-02-11 14:00:00 2021-02-11 14:00:00 Outpatient R [facility] [id number] [facility] 2021-02-11 14:00:00 2021-02-11 14:00:00 Outpatient R [facility] [id number] [facility] 2021-02-08 14:34:00 2021-02-08 16:05:44 Office Visit Linda [facility]ly [facility] Ac?Lucy myrnamiguel [facility] Office Building 1.84.114 350.1.13.10 4.2.7.2.686 [id number] [facility] 2021-02-08 14:30:00 2021-02-08 16:05:44 Outpatient R KAITLIN MCKEON [facility] [id number] [facility] 2021-02-08 14:30:00 2021-02-08 14:30:00 [facility] [id number] [facility] 2021-02-08 00:00:00 2021-02-08 00:00:00 Orders Only Doctor Unassigned, [place] [facility] [facility] 1.840.114 350.1.13.10 4.2.7.2.686 [id number] [facility] 2021-02-07 11:00:00 2021-02-07 11:00:00 [facility] [id number] [facility] 2021-01-03 00:00:00 2021-01-03 00:00:00 Patient Secure [facility] Office Building One 1.840.114 350.1.13.10 4.2.7.2.686 [id number] [facility] 2021-01-02 00:00:00 2021-01-02 00:00:00 Patient Secure Msg Doctor Unassigned, [place] [facility] 1.2840.114 350.1.13.10 4.2.7.2.686 [id number] [facility] 2021-01-02 00:00:00 2021-01-02 00:00:00 Refill Kyramarian [facility] Office Building One 1.0.114 350.1.13.10 4.2.7.2.686 [id number] 044 [id number] [facility] 2020-12-31 00:00:00 2020-12-31 00:00:00 Orders Only Doctor Unassigned, [place] [facility] 1.840.114 350.1.13.10 4.2.7.2.686 [id number] [facility] 2020-12-31 00:00:00 2020-12-31 00:00:00 Orders Only Doctor Unassigned, [place] [facility] 1.840.114 350.1.13.10 4.2.7.2.686 [id number] [facility] 2020-12-24 00:00:00 2020-12-24 00:00:00 Patient Secure Msg [facility] AC?JOS[facility]ressa [facility] 1.114 350.1.13.10 4.2.7.2.686 [id number] [facility] 2020-12-24 00:00:00 2020-12-24 00:00:00 Refill Irina Gonzales [facility] Office Building One 1.114 350.1.13.10 4.2.7.2.686 [id number] [facility] 2020-12-21 23:17:00 2020-12-22 01:38:00 Emergency X HARRY SMITH [facility] ERT [id number] [facility] 2020-12-21 23:17:00 2020-12-22 01:38:00 Emergency Harry Smith R [facility] 1.114 350.1.13.10 4.2.7.2.686 [id number] [facility] 2020-12-22 00:00:00 2020-12-22 00:00:00 Patient Secure Msg Doctor Unassigned, [place] [facility] 1.114 350.1.13.10 4.2.7.2.686 [id number] [facility] 2020-12-21 00:00:00 2020-12-21 00:00:00 Orders Only Doctor Unassigned, [place] [facility] 1..114 350.1.13.10 4.2.7.2.686 [id number] [id number] [facility] 2020-11-30 00:00:00 2020-11-30 00:00:00 Refill Janet, [facility] Office Building One .114 350.1.13.10 4.2.7.2.686 [id number] [id number] [facility] 2020-11-30 00:00:00 2020-11-30 00:00:00 Refill [facility] Office Building One .114 350.1.13.10 4.2.7.2.686 [id number] [id number] 2020-11-19 00:00:00 2020-11-19 00:00:00 Patient Secure Msg Roslyn Benito [facility] BUILDING 1..114 350.1.13.10 4.2.7.2.686 [id number] [facility] 2020-11-14 00:00:00 2020-11-14 00:00:00 Patient Secure [facility] BU[facility] 1.2.840.114 350.1.13.10 4.2.7.2.686 [id number] [facility] 2020-11-14 00:00:00 2020-11-14 00:00:00 [facility] One 1..840.114 350.1.13.10 4.2.7.2.686 [id number] [facility] 2020-11-14 00:00:00 2020-11-14 00:00:00 Patient Secure Msg Gonzales [facility] Office Building One 1.2.840.114 350.1.13.10 4.2.7.2.686 [id number] 2020-11-13 15:00:00 2020-11-13 15:00:00 Outpatient RAMIRO BARRAGAN [facility] [id number] [facility] 2020-11-12 14:00:00 2020-11-12 14:00:00 [facility] [id number] [facility] 2020-11-12 13:12:08 2020-11-12 13:27:08 Plastering Supervisor Visit 2, Adc Lab Rochelle Gonzalestany [facility] Building 1.2.840.114 350.1.13.10 4.2.7.2.686 [id number] [facility] 2020-11-12 13:12:08 2020-11-12 13:27:08 Plastering Supervisor Visit 2, Adc Lab [facility] Building 1.2.840.114 350.1.13.10 4.2.7.2.686 [id number] 2020-11-12 13:00:00 2020-11-12 13:00:00 Outpatient R ROCHELLE GONZALESTANY [facility] [id number] [facility] 2020-11-09 10:30:00 2020-11-09 10:30:00 Outpatient R EDGAR GARCIA [facility] [id number] [facility] 2020-11-09 10:30:00 2020-11-09 10:30:00 [facility] [id number] [facility] 2020-11-09 00:00:00 2020-11-09 00:00:00 Letter (Out) Janet [facility] Office Building One 1..114 350.1.13.10 4.2.7.2.686 [id number] 2020-11-09 00:00:00 2020-11-09 00:00:00 Letter (Out) Janet [facility] Office Building One ..114 350.1.13.10 4.2.7.2.686 [id number] [facility] 2020-11-07 00:00:00 2020-11-07 00:00:00 Patient Secure Msg Doctor Unassigned, [place] [facility] 1..114 350.1.13.10 4.2.7.2.686 [id number] [facility] 2020-11-06 14:58:36 2020-11-06 15:55:10 Plastering Supervisor [facility] Office Building One .114 350.1.13.10 4.2.7.2.686 [id number] 2020-11-06 14:58:36 2020-11-06 15:55:10 Plastering Supervisor Visit Lab, Adc Fam Pob I Janet [facility] Office Building One 1.840.114 350.1.13.10 4.2.7.2.686 [id number] [facility] 2020-11-06 14:00:00 2020-11-06 14:59:38 [facility] [id number] [facility] 2020-11-06 13:53:45 2020-11-06 14:59:38 Office Visit Rochelle Gonzalestany [facility] Office Building One 1.840.114 350.1.13.10 4.2.7.2.686 [id number] [facility] 2020-11-06 14:00:00 2020-11-06 14:00:00 Outpatient R IRINA GONZALES [facility] [id number] [facility] 2020-11-06 00:00:00 2020-11-06 00:00:00 Letter (Out) Janet [facility] Office Building One 1.840.114 350.1.13.10 4.2.7.2.686 [id number] [facility] 2020-10-31 00:00:00 2020-10-31 00:00:00 Patient Secure MsRoslyn Quinn [facility] BUILDING 1..840.114 350.1.13.10 4.2.7.2.686 [id number] [facility] 2020-10-17 00:00:00 2020-10-17 00:00:00 Outpatient ROSLYN VINES [facility] [id number] [facility] 2020-10-17 00:00:00 2020-10-17 00:00:00 Outpatient R ROSLYN BENITO [facility] [id number] [facility] 2020-10-16 17:00:00 2020-10-16 17:00:00 Outpatient R [facility] [id number] [facility] 2020-10-16 17:00:00 2020-10-16 17:00:00 Outpatient R [facility] [id number] [facility] 2020-10-16 00:00:00 2020-10-16 00:00:00 Telephone Isis Rubin [facility] 1.2.840.114 350.1.13.10 4.2.7.2.686 [id number] [facility] 2020-10-15 00:00:00 2020-10-15 00:00:00 Patient Secure [facility] Office Building One 1.2.840.114 350.1.13.10 4.2.7.2.686 [id number] [facility] 2020-10-12 13:00:00 2020-10-12 23:59:[address] [facility] 1.2.840.114 350.1.13.10 4.2.7.2.686 [id number] [facility] 2020-10-12 14:24:26 2020-10-12 15:42:02 Office [facility] 1.2.840.114 350.1.13.10 4.2.7.2.686 [id number] [facility] 2020-10-12 14:00:00 2020-10-12 15:42:02 Outpatient R ROSLYN BENITO [facility] [id number] [facility] 2020-10-12 14:00:00 2020-10-12 14:00:00 Outpatient R ROSLYN BENITO [facility] [id number] [facility] 2020-09-21 00:00:00 2020-09-21 00:00:00 Outpatient R THONG [facility] [id number] [facility] 2020-09-18 14:46:18 2020-09-18 15:01:18 Plastering Supervisor Visit 2, Adc Lab Adanirudh [facility] Building 1..840.114 350.1.13.10 4.2.7.2.686 [id number] [facility] 2020-09-18 14:45:00 2020-09-18 14:45:00 Outpatient R THONG [facility] [id number] [facility] 2020-09-18 14:45:00 2020-09-18 14:45:00 Outpatient R THONG [facility] [id number] [facility] 2020-09-18 00:00:00 2020-09-18 00:00:00 Case Management Adanirudh, [facility] Building 1.840.114 350.1.13.10 4.2.7.2.686 [id number] [facility] 2020-09-17 00:00:00 2020-09-17 00:00:00 Patient Secure Msg Adanirudh [facility] BUILDING 1..840.114 350.1.13.10 4.2.7.2.686 [id number] [facility] 2020-09-14 00:00:00 2020-09-14 00:00:00 Refill Irina Gonzales [facility] Office Building One 1..840.114 350.1.13.10 4.2.7.2.686 [id number] [facility] 2020-09-13 14:00:00 2020-09-13 14:00:00 Outpatient R [facility] [id number] [facility] 2020-09-13 14:00:00 2020-09-13 14:00:00 Outpatient R [facility] [id number] [facility] 2020-09-13 00:00:00 2020-09-13 00:00:00 Patient Secure Msg Thong [facility] BUILDING 1..840.114 350.1.13.10 4.2.7.2.686 [id number] [facility] 2020-09-12 15:00:00 2020-09-12 16:13:07 Outpatient R THONG [facility] [id number] [facility] 2020-09-12 14:28:33 2020-09-12 16:13:07 Office Visit Thong [facility] Building 1..840.114 350.1.13.10 4.2.7.2.686 [id number] [facility] 2020-09-12 15:00:00 2020-09-12 15:00:00 Outpatient R ROSLYN BENITO [facility] [id number] [facility] 2020-08-30 15:30:00 2020-08-30 15:30:00 Outpatient R RANGEL CID [facility] [id number] [facility] 2020-08-30 15:30:00 2020-08-30 15:30:00 Outpatient R PALAK RANGEL [facility] [id number] [facility] 2020-08-27 00:00:00 2020-08-27 00:00:00 Patient Secure Msg Irina Gonzales [facility] Office Building One 1..840.114 350.1.13.10 4.2.7.2.686 [id number] [facility] 2020-08-15 09:30:00 2020-08-15 09:30:00 Outpatient R ROSLYN BENITO [facility] [id number] [facility] 2020-08-15 09:30:00 2020-08-15 09:30:00 Outpatient R THONG [facility] [id number] [facility] 2020-08-09 00:00:00 2020-08-09 00:00:00 [facility] ..114 350.1.13.10 4.2.7.2.686 [id number] [facility] 2020-08-08 15:00:00 2020-08-08 15:00:00 Outpatient R THONG ROSYLN [facility] [id number] [facility] 2020-08-08 00:00:00 2020-08-08 00:00:00 Patient Secure Msg [facility] Office Building One ..114 350.1.13.10 4.2.7.2.686 [id number] [facility] 2020-08-08 00:00:00 2020-08-08 00:00:00 Patient Secure Msg Doctor Unassigned, [place] [facility] OFFICE BUILDING ONE ..114 350.1.13.10 4.2.7.2.686 [id number] [facility] 2020-08-07 14:30:33 2020-08-07 14:50:33 Plastering Supervisor Visit Lab, Adc Liban Crane I [facility] Office Building One ..114 350.1.13.10 4.2.7.2.686 [id number] [facility] 2020-08-07 13:35:38 2020-08-07 14:45:20 Office Visit Irina Gonzales [facility] Office Building One 1.114 350.1.13.10 4.2.7.2.686 [id number] [facility] 2020-08-07 13:30:00 2020-08-07 13:30:00 Outpatient R IRINA GONZALES [facility] [id number] [facility] 2020-03-01 00:00:00 2020-03-01 00:00:00 Patient Secure g Anton Sibley [facility] OFFICE BUILDING ONE 1.114 350.1.13.10 4.2.7.2.686 [id number] [facility] 2020-02-29 00:00:00 2020-02-29 00:00:00 Patient Secure Msg Toñito [facility] OFFICE BUILDING ONE 1.114 350.1.13.10 4.2.7.2.686 [id number] [facility] 2020-02-06 00:00:00 2020-02-06 00:00:00 Patient Secure Msg Doctor Unassigned, [place] [facility] 1..114 350.1.13.10 4.2.7.2.686 [id number] [facility] 2020-01-31 08:50:00 2020-01-31 15:58:00 Emergency Melisa Olmito [facility] 1.114 350.1.13.10 4.2.7.2.686 [id number] [facility] 2020-01-31 08:37:00 2020-01-31 08:37:00 Emergency X [facility] ERT [id number] [facility]
[2024-05-23] MEDS ORDERED: HYDROCODONE/APAP 10/325 TAB ONE (09:05)
[2024-05-23] MEDS ORDERED: LIDOCAINE 1% MPF 5 ML VIAL ONE (09:05)
--- NOTE | 2024-05-23 09:21 | RAD REPORT ---
EXAM: XR LEFT HAND HISTORY: Pain. PAIN COMPARISON: None TECHNIQUE: Multiple projections of the left hand submitted. FINDINGS: Moderately angulated oblique fracture proximal phalanx of the fifth finger.. No dislocation evident.
--- NOTE | 2024-05-23 09:23 | RAD REPORT ---
EXAMINATION: XR LEFT WRIST CLINICAL INDICATION: PAIN TECHNIQUE: Multiple projections of the left wrist were obtained. COMPARISON: No prior exam. FINDINGS: Oblique fracture of the proximal phalanx of the fifth finger. Elsewhere, no fracture or dis location.
--- NOTE | 2024-05-23 10:33 | ER ---
Nurse's Notes [facility] Name: Sailaja Atkins Age: 33 yrs Sex: Female : 1990 Arrival Date: 05/23/2024 Time: 08:42 Bed 14 Private MD: Diagnosis: Displaced fracture of proximal phalanx of left little finger Presentation: 05/23 09:02 Chief complaint: Patient states: Tripped over a cat, left pinky finger deformity noted. jl7 Coronavirus screen: At this time, the client does not indicate any symptoms associated with coronavirus-19. Ebola Screen: No symptoms or risks identified at this time. Initial Sepsis Screen: Does the patient meet any 2 criteria? No. Patient's initial sepsis screen is negative. Does the patient have a suspected source of infection? No. Patient's initial sepsis screen is negative. Risk Assessment: Do you want to hurt yourself or someone else? Patient reports no desire to harm self or others. Onset of symptoms was May 23, 2024. 09:02 Method Of Arrival: Ambulatory [facility] 09:02 Acuity: NGOC 4 jl7 Triage Assessment: 09:04 General: Appears in no apparent distress. uncomfortable, Behavior is calm, cooperative, jl7 appropriate for age. Pain: Complains of pain in left little finger Pain currently is 10 out of 10 on a pain scale. Musculoskeletal: Bony deformity noted of left little finger. 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 - Infectious Disease History:: Denies. Denies. - Social history:: Smoking status: Reported history of juuling and/or vaping. Smoking status: Reported history of juuling and/or vaping. - Family history:: not pertinent. - Hospitalizations: : No recent hospitalization is reported. Screenin:45 [facility] ED Fall Risk Assessment (Adult) History of falling in the last 3 months, rs5 including since admission No falls in past 3 months (0 pts) Confusion or Disorientation No (0 pts) Intoxicated or Sedated No (0 pts) Impaired Gait No (0 pts) Mobility Assist Device Used No (0 pt) Altered Elimination No (0 pt) Score/Fall Risk Level 0 - 2 = Low Risk Oriented to surroundings, Maintained a safe environment. Abuse screen: Denies threats or abuse. Nutritional screening: No deficits noted. Tuberculosis screening: No symptoms or risk factors identified. Assessment: 08:48 General: Appears uncomfortable, Behavior is calm, cooperative. Pain: Complains of pain rs5 in left little finger Pain currently is 8 out of 10 on a pain scale. Quality of pain is described as aching, Is continuous. Neuro: Level of Consciousness is awake, alert, obeys commands, Oriented to person, place, time, situation. Cardiovascular: Patient's skin is warm and dry. Respiratory: Airway is patent Respiratory effort is even, unlabored, Respiratory pattern is regular, symmetrical. GI: Abdomen is round non-distended, Abd is soft and non tender X 4 quads. : No signs and/or symptoms were reported regarding the genitourinary system. EENT: No signs and/or symptoms were reported regarding the EENT system. Derm: Skin is intact, Skin is pink, warm \T\ dry. Musculoskeletal: Range of motion: intact in all extremities, deformity noted in left pinky. 10:13 Reassessment: Patient and/or family updated on plan of care and expected duration. Pain rs5 level reassessed. Patient is alert, oriented x 3, equal unlabored respirations, skin warm/dry/pink. Patient states feeling better. Vital Signs: 09:02 BP 131 / 88; Pulse 98; Resp 15; Temp 97.9; Pulse Ox 100% ; Weight 68.04 kg; Height 5 jl7 ft. 2 in. ; Pain 10/10; 10:13 BP 122 / 74; Pulse 71; Resp 17; Pulse Ox 99% ; rs5 10:33 BP 125 / 77; Pulse 79; Resp 17; Pulse Ox 99% on R/A; rs5 09:02 Body Mass Index 27.44 (68.04 kg, 157.48 cm) jl7 09:02 Pain Scale: Adult jl7 ED Course: 08:43 Patient arrived in ED. ra3 08:44 Isidoro Real MD is Attending Physician. rn 08:45 Patient has correct armband on for positive identification. Placed in gown. Bed in low rs5 position. Call light in reach. Side rails up X2. 08:45 No provider procedures requiring assistance completed. rs5 08:55 Emmanuel Haynes, RN is Primary Nurse. rs5 09:04 Triage completed. jl7 09:04 Arm band placed on right wrist. jl7 09:16 XRAY Hand LEFT 3 View In Process Unspecified. EDMS 09:16 XRAY Wrist LEFT 3 view In Process Unspecified. EDMS 09:35 Provided Education on: discharge instructions . rs5 10:33 Isidoro Real MD is Referral Physician. rn 10:33 Referral Physician role handed off by Isidoro Real MD rn 10:40 Patient did not have IV access during this emergency room visit. rs5 Administered Medications: 09:06 Drug: Edwards PO 10 mg-325 mg 1 tabs PO once Route: PO; rs5 10:14 Follow up: Response: No adverse reaction; Pain is decreased rs5 10:21 Drug: Lidocaine Infiltration (1 %) 1 vials 5 ml Infiltration once; to bedside {Note: rs5 adm by provider at bedside to left pinky.} Volume: 5 ml; Route: Infiltration; Medication: 09:14 VIS not applicable for this client. rs5 Outcome: 10:33 Discharge ordered by MD. rn 10:40 Discharged to home ambulatory, rs5 10:40 Condition: stable rs5 10:40 Discharge instructions given to patient, family, Instructed on discharge instructions, follow up and referral plans. Demonstrated understanding of instructions, follow-up care, 10:42 Patient left the ED. rs5 Signatures: Dispatcher [employer] EDMS Isidoro Real MD MD rn Blanchard, Shelby, RN RN ss Leal, Jahala, RN RN jl7 Emmanuel Haynes, RN RN rs5 Madison Calhoun ra3 Corrections: (The following items were deleted from the chart) 12:34 12:10 BP 125 / 77; Pulse 79bpm; Resp 17bpm; Pulse Ox 99% RA; rs5 rs5
--- NOTE | 2024-05-23 10:33 | EDPHYS ---
Physician Documentation [facility] Name: Sailaja Atkins Age: 33 yrs Sex: Female : 1990 Arrival Date: 05/23/2024 Time: 08:42 Bed 14 Private MD: ED Physician Isidoro Real HPI: 05/23 10:25 This 33 yrs old Female presents to ER via Ambulatory with complaints of Left pinky rn injury, Fall Injury. 10:25 Details of fall: The patient fell from an upright position. Onset: The symptoms/episode rn began/occurred today. Associated injuries: The patient sustained Left little finger. Severity of symptoms: At their worst the symptoms were moderate, in the emergency department the symptoms are unchanged. The patient has not experienced similar symptoms in the past. Patient reports fall, tripped over her cat, fell onto left hand. Has deformity of the left little finger. No other injury. No head injury or back pain.. 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 - Infectious Disease History:: Denies. Denies. - Social history:: Smoking status: Reported history of juuling and/or vaping. Smoking status: Reported history of juuling and/or vaping. - Family history:: not pertinent. - Hospitalizations: : No recent hospitalization is reported. ROS: 10:25 Constitutional: Negative for fever, chills, and weight loss, Neck: Negative for injury, rn pain, and swelling, Cardiovascular: Negative for chest pain, palpitations, and edema, Respiratory: Negative for shortness of breath, cough, wheezing, and pleuritic chest pain, Abdomen/GI: Negative for abdominal pain, nausea, vomiting, diarrhea, and constipation, Back: Negative for injury and pain, MS/Extremity: Positive for left little finger deformity and pain Skin: Negative for injury, rash, and discoloration, Neuro: Negative for headache, weakness, numbness, tingling, and seizure, Exam: 10:25 Constitutional: This is a well developed, well nourished patient who is awake, alert, rn and in no acute distress. Head/Face: Normocephalic, atraumatic. MS/ Extremity: Pulses equal, no cyanosis. Neurovascular intact. Left fifth finger with obvious deformity, tenderness at the proximal phalanx of the fifth digit. No open wound. Neuro: Awake and alert, GCS 15 Vital Signs: 09:02 BP 131 / 88; Pulse 98; Resp 15; Temp 97.9; Pulse Ox 100% ; Weight 68.04 kg; Height 5 jl7 ft. 2 in. ; Pain 10/10; 10:13 BP 122 / 74; Pulse 71; Resp 17; Pulse Ox 99% ; rs5 10:33 BP 125 / 77; Pulse 79; Resp 17; Pulse Ox 99% on R/A; rs5 09:02 Body Mass Index 27.44 (68.04 kg, 157.48 cm) jl7 09:02 Pain Scale: Adult jl7 Procedures: 10:05 Reduction: of the left little finger, using traction, manipulation, Immobilized with rn finger splint, Patient tolerated well. Nerve block: (digital) of palmar aspect of proximal phalanx of left little finger Medication: Lidocaine 1% without epinephrine Amount: 2 mls were injected, Effect: the patient's symptoms are improved, Set up for procedure. Performed by Isidoro Real MD Patient tolerated well. MDM: 08:44 Medical Screening Exam initiated rn 10:32 Differential diagnosis: contusion, fracture, sprain, strain. Data reviewed: vital rn signs, nurses notes, radiologic studies, plain films, and as a result, I will discharge patient. Independent interpretation of the following test(s) in the Emergency Department X-Ray: My interpretation is X-ray left hand images show proximal phalanx fracture of the left fifth digit per my interpretation.. Counseling: I had a detailed discussion with the patient and/or guardian regarding the historical points, exam findings, and any diagnostic results supporting the discharge/admit diagnosis, radiology results, the need for outpatient follow up, to return to the emergency department if symptoms worsen or persist or if there are any questions or concerns that arise at home. Special discussion: I discussed with the patient/guardian in detail that at this point there is no indication for admission to the hospital. It is understood, however, that if the symptoms persist or worsen the patient needs to return immediately for re-evaluation. 10:35 Special discussion: Based on the history and exam findings, there is no indication for rn further emergent testing or inpatient evaluation. I discussed with the patient/guardian the need to see the hand specialist for further evaluation of the symptoms. 05/23 08:52 Order name: XRAY Hand LEFT 3 View; Complete Time: : rn 05/23 08:58 Order name: XRAY Wrist LEFT 3 view; Complete Time: : rn Administered Medications: 09:06 Drug: [place] PO 10 mg-325 mg 1 tabs PO once Route: PO; rs5 10:14 Follow up: Response: No adverse reaction; Pain is decreased rs5 10:21 Drug: Lidocaine Infiltration (1 %) 1 vials 5 ml Infiltration once; to bedside {Note: rs5 adm by provider at bedside to left pinky.} Volume: 5 ml; Route: Infiltration; Disposition Summary: 05/23/24 10:33 Discharge Ordered Notes: Location: Home rn Problem: new rn Symptoms: have improved rn Condition: Stable rn Diagnosis - Displaced fracture of proximal phalanx of left little finger rn Followup: rn - With: Private Physician - When: As needed - Reason: Recheck today's complaints, Re-evaluation by your physician Discharge Instructions: - Discharge Summary Sheet rn - Finger Fracture, Adult rn Forms: - Medication Reconciliation Form rn - 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
[2024-05-23 13:09] VITALS: BP 131/88; TEMP 97.9; O2SAT 100
== END 2024-05-23 10:42 | disposition home or self-care (01) ==
LOC: ER 08:42
PROC: 0PSVXZZ Reposition Left Finger Phalanx, External Approach (ICD-10-PCS; principal; 2024-05-23)
DX: S62.617A Displaced fracture of proximal phalanx of left little finger, initial encounter for closed fracture (principal); W01.0XXA Fall on same level from slipping, tripping and stumbling without subsequent striking against object, initial encounter; Y93.9 Activity, unspecified; Y92.019 Unspecified place in single-family (private) house as the place of occurrence of the external cause; F17.290 Nicotine dependence, other tobacco product, uncomplicated; J45.909 Unspecified asthma, uncomplicated; Z85.72 Personal history of non-Hodgkin lymphomas
CPT/HCPCS: 73130; 73110; 64450; 99283; 26725; J2003